=== PATIENT | female | born 1950 | race Caucasian/White ===

== ENCOUNTER → 2023-08-01 07:55 | Outpatient (REF) | payer MEDICARE, OTHER, SELFPAY | LOC: RAD 07:55 | PROVIDERS: ATTENDING PHYSICIAN Nurse Practitioner Adult Health; FAMILY PHYSICIAN Family Medicine | DX: R91.8 Other nonspecific abnormal finding of lung field (principal) | CPT/HCPCS: 71250 ==

== ENCOUNTER 2023-10-11 10:49 | Inpatient (IN) | payer MEDICARE, OTHER, SELFPAY ==
[2023-10-11] VITALS (9 sets, daily range): BP systolic 114–148; BP diastolic 59–101; BMI 30.8; BMI 29.9
[2023-10-11 06:00] LABS: % Basophils 0.8 % (0-2); % Immature Granulocytes 0.1 % (0-0.5); % Lymphocytes 21.9 % (20.5-51.1); % Monocytes 5.7 % (1.7-9.3); % Neutrophils 61.5 % (42.2-75.2); Absolute Basophils 0.1 10^3/uL (0-0.2); Absolute Eosinophils 0.8 10^3/uL (0-0.7); Absolute Lymphocytes 1.7 10^3/uL (1.2-3.4); Absolute Monocytes 0.4 10^3/uL (0.1-0.6); Absolute Neutrophils 4.8 10^3/uL (1.4-6.5); Hematocrit 39.9 % (37.0-47.0); Hemoglobin 13.6 g/dL (12.0-16.0); Mean Corp Hgb Conc. 34.1 g/dL (33.0-37.0); Mean Corpuscular Hgb 30.4 pg (27.0-31.0); Mean Corpuscular Volume 89.3 fL (81.0-99.0); Mean Platelet Volume 9.2 fL (7.4-10.4); Nucleated Red Blood Cells % 0 %; Platelet Count 257 10^3/uL (130-400); Red Blood Cell Count 4.47 10^6/uL (4.20-5.40); Red Cell Dist. Width 13.7 % (11.5-14.5); White Blood Cell Count 7.7 10^3/uL (4.8-10.8)
[2023-10-11 06:23] LABS: ALT (SGPT) 26 U/L (0-35); AST (SGOT) 38 U/L (14-36); Albumin 4.2 g/dl (3.5-5.0); Alkaline Phosphatase 81 U/L (38-126); Blood Urea Nitrogen 16 mg/dl (7-17); Calcium 10.4 mg/dl (8.4-10.2); Carbon Dioxide 24 mmol/L (22-30); Chloride 106 mmol/L (98-107); Estimated Creatinine Clearance 63 ml/min; Glucose 128 mg/dl (70-99); Potassium 4.2 mmol/L (3.5-5.1); Sodium 136 mmol/L (135-145); Total Bilirubin 0.5 mg/dl (0.2-1.3); eGFR > 60.00
--- NOTE | 2023-10-11 06:26 | ED.GENMED ---
History of Present Illness
General
Chief Complaint: Breathing Problem
Source: patient
Time Seen by Provider: 10/11/23 06:18
Travel History
Have you had any contact with someone who has COVID-19?: No
Do you have any symptoms of coronavirus? Fever > 100 degrees, chills, cough, shortness of breath, sore throat, loss of taste or smell, muscle aches, or headache?: Yes
Symptoms:: SOB
History of Present Illness
History of Present Illness:
72-year-old female presents to the emergency room complaining of increasing cough, shortness of breath. Patient has a history of COPD but has been feeling like her symptoms have worsened over the past week or so. She has noted an increase in her
cough which is mostly nonproductive. She feels short of breath with minimal exertion. She denies any fever or chills. No known sick contacts. Patient was prescribed a new inhaler by her director organizational,Tobi. She does not believe this new
inhaler has helped. She denies any chest pain. She denies nausea, vomiting
Past History
Past History
ED Past Medical History: COPD and Hypercholesterolemia
Social History
Tobacco: Former smoker
Alcohol: None
Drug: None
Personal:
Living: with family
Phy Exam
Physical Exam
Physical Exam:
General: Awake, Alert, Oriented X3. No acute distress.
Vitals: Hypoxic
Head: Atraumatic
Eyes: Pupils equal, EOMI
Throat: Airway intact, no exudates
Neck: Trachea midline
Lungs: Expiratory wheezing, rhonchi diffusely
Heart: Regular rate, no murmurs
Abd: Soft, Nontender, No pulsatile mass
Neuro: Nonfocal
Skin: Warm, dry, no rash
Extremities: pulses equal b/l, no edema
Scores
Heart Failure Risk
Heart Failure Risk Score: Not Applicable
Course
Orders/Labs/Results
Orders:
Orders
10/11/23 05:51
Electrocardiogram (*1) Urgent
Reason for Study: Shortness of Breath
EKG- Treatment ONCE
10/11/23 05:55
Complete Blood Count/With Diff Urgent
Comprehensive Metabolic Panel Urgent
Troponin I Urgent
10/11/23 06:23
Ipratropium/Albuterol Sulfate [Duoneb] 3 ml INH R NOW STA
Prednisone [Deltasone] 60 mg PO NOW STA
10/11/23 06:25
CR Chest - 2 Views Urgent
Comment:
Reason For Exam: cough, hypoxia
10/11/23 06:30
COVID-19 Antigen Urgent
Source: Nasal Swab
Influenza A+B Rapid Molecular Urgent
ARTEM Source: Nasal Swab
Specimen Description:
10/11/23 07:46
Albuterol Nebs [Ventolin Nebules] 2.5 mg INH R NOW STA
10/11/23 09:09
Procalcitonin Urgent
10/11/23 10:31
Admit/Transfer Patient As Directed
Co-Sign Provider:
Level of Care: Inpatient admission
Assign to:: Medical/Surgical
Physician / Group: Alonzo
Diagnosis: Pneumonia and COPD flare
Reason for Hospitalization: see progress note
Expected length of stay greater than two midnights?: Yes
ELOS- Estimated Length of Stay in days: 4
I certify the patient meets the requirements for IP care: Yes
10/11/23 10:33
Code Status As Directed
Resuscitation Status: Full Code
Abnormal Lab Results
10/11/23
05:55
Absolute Eos (auto) 0.8 H 10^3/uL
(0-0.7)
Eosinophils % 10.0 H %
(0-6)
Glucose 128 H mg/dl
(70-99)
Calcium 10.4 H mg/dl
(8.4-10.2)
AST 38 H U/L
(14-36)
10/11/23 05:55
10/11/23 05:55
Vital Signs
Initial and Last Documented VS:
Initial Vital Signs
Temp Pulse Resp Pulse Ox
97.8 F 100 32 86
10/11/23 05:40 10/11/23 05:40 10/11/23 05:40 10/11/23 05:40
Last Documented Vital Signs
Temp Pulse Resp BP Pulse Ox
97.8 F 89 23 135/101 92
10/11/23 05:40 10/11/23 10:00 10/11/23 10:00 10/11/23 10:00 10/11/23 10:07
MDM/Problems Addressed
Differential Diagnosis Includes:
ptx, copd exacerbation, pneumonia
MDM/Problems Addressed:
Patient presents with increased wheezing, hypoxia, dyspnea on exertion. No significant improvement with nebs and oral prednisone here. Chest x-ray shows atelectasis. Given lack of response to treatment here in the emergency room we will
hospitalize for further nebs, steroids and evaluation.
*Pulse Oximetry
Patient hypoxic: yes
*EKG
Interpreted by ED Provider?: Yes
Interpretation: normal
Heart Rate: 86
Rate: normal
Rhythm: sinus
[place]: normal axis
Interval: normal interval
QRS Pattern: normal QRS
Ischemia: no ischemia
*[employer] Rep Interpretation
Rate: normal
Interpretation: normal
Rhythm: sinus
*Critical Care Note
Total Time (30-74mins, 75-104mins- exclusive of procedures): Not Applicable
ED Attending Note
-
Portions of this chart may have been created with voice recognition software.� Occasional wrong word or��sound alike� substitutions may have occurred due to the inherent limitations of voice recognition software.
Discharge Plan
Departure
Patient Disposition: Admit
Date of Disposition: 10/11/23
Time of Disposition: 08:43
Admit to: Med/Surg
Presentation/result/management discussed w/ accepting MD/DO: Hospitalist
Condition: Fair
Discharge Problem:
Acute exacerbation of chronic obstructive pulmonary disease (COPD), Hypoxia
Interventions
Interventions:
*Risk Screen - Suicide Last Done: 10/11/23 05:48
*General Assessment Last Done: 10/11/23 05:48
*Neglect/Abuse Screening Last Done: 10/11/23 05:48
ED- Fall Risk Assessment Last Done: 10/11/23 05:48
*ED COVID-19 Vaccine History Last Done: 10/11/23 05:48
ED- Cardiac Assessment Last Done: 10/11/23 07:26
ED- Pulmonary Assessment Last Done: 10/11/23 07:26
[2023-10-11] MEDS: DELTASONE 60 MG PO (06:30)
[2023-10-11] MEDS: DUONEB 3 ML INH ×4 (06:31→20:36)
[2023-10-11 06:39] LABS: Troponin I < 0.012 ng/ml
[2023-10-11 07:00] LABS: COVID-19 Antigen Negative (Negative)
[2023-10-11] MEDS: VENTOLIN NEBULES 2.5 MG INH (08:17)
[2023-10-11 10:25] LABS: Procalcitonin < 0.05 ng/ml (0.0-0.25)
--- NOTE | 2023-10-11 10:43 | HPS.HSE ---
Family Physician
-
Family Physician: Lennie Brown DO
Chief Complaint
-
Shortness of breath and cough
History of Present Illness
Known history of COPD. Last time she was troubled from respiratory standpoint was in May when she had a pneumonia got admitted to [facility].
She is normally on inhaler therapy. No nebulizers or home O2.
Post discharge she was feeling great. She had a follow-up chest CT which showed improvement apparently. She saw game attendant understanding of September and had a pulmonary function test which were all stable apparently again.
She has a bit of cough in the morning normally but lately she has been having cough more frequently and mostly dry. In the last 3 to 4 days she started to become more short of breath. She called the pulmonary office and was put on a different
inhaler but not made any improvement so came into the hospital.
She was 86% on room air on initial assessments in ER. Currently stable on nasal cannula.
Denies any fever or chills.
Denies any seasonal allergies issues.
No contact with sick people. No travel. No new pets.
No chest pains.
No nausea or vomiting.
Medical History
Past Medical History
Past Medical History: Reports COPD and Hypercholesterolemia
Past Surgical History: Reports Orthopedic (Left shoulder replacement 6 months ago. Left knee replacement 9 years ago.)
Social History
Tobacco: Former Smoker
Alcohol: Occasional
Drug: None
Living: With Family
Family History
Family History: Not pertinent
Allergies / Home Medications
Allergies reflects when Allergies were last updated in [employer].
Home Medications with original date entered in [employer]
Allergy/Medication List:
Allergies
Allergy/AdvReac Type Severity Reaction Status Date / Time
Opioids - Morphine Analogues Allergy Nausea / Verified 10/11/23 05:40
Vomiting
Home Medications
albuterol sulfate 90 mcg/actuation aerosol inhaler 2 puff inhalation R Q4HPRN PRN sob/wheezing 06/02/23
alendronate 70 mg tablet 70 mg PO MO osteoporosis 06/02/23
cyclosporine 0.05 % eye drops in a dropperette (Restasis) 1 drp BOTH EYES BID Eye Condition 06/02/23
diphenhydramine 25 mg-acetaminophen 500 mg tablet (Tylenol PM Extra Strength) 2 tab PO HS PRN sleep 06/02/23
esomeprazole magnesium 20 mg capsule,delayed release (Nexium) 20 mg PO DAILY PRN heartburn 06/02/23
rosuvastatin 5 mg tablet 5 mg PO QPM High Cholesterol 06/02/23
acetaminophen 500 mg tablet (Tylenol Extra Strength) 1,000 mg PO Q6H PRN mild pain 10/11/23
cholecalciferol (vitamin D3) 125 mcg (5,000 unit) tablet 125 mcg PO DAILY Supplement 10/11/23
melatonin 10 mg tablet 10 mg PO HS PRN sleep 10/11/23
tiotropium 2.5 mcg-olodaterol 2.5 mcg/actuation mist for inhalation (Stiolto Respimat) 2 puff inhalation .SEE BELOW Lung/Breathing Issues 10/11/23
Review of Systems
-
A 12 point ROS was completed and negative except as noted: Yes
Physical Exam
Vital Signs
Vital Signs
Temp Pulse Resp BP Pulse Ox
97.8 F 89 23 135/101 92
10/11/23 05:40 10/11/23 10:00 10/11/23 10:00 10/11/23 10:00 10/11/23 10:07
Physical Exam
General: No Apparent Distress
HEENT: Moist mucous membranes
Respiratory: Wheezes (bl) and Non Labored Respirations; No Accessory Resp Muscle Use
Cardiac: S1/S2 and Regular Rhythm; No Tachycardia
GI: Soft
Musculoskeletal: No Edema
Neuro: AO x 3
Laboratory Results
-
10/11/23 05:55
10/11/23 05:55
Laboratory Results
Total Bilirubin 0.5 mg/dl (0.2-1.3) 10/11/23 05:55
AST 38 U/L (14-36) H 10/11/23 05:55
ALT 26 U/L (0-35) 10/11/23 05:55
Alkaline Phosphatase 81 U/L (38-126) 10/11/23 05:55
Troponin I < 0.012 ng/ml 10/11/23 05:55
Data Reviewed
-
Diagnostic Radiology: Report Reviewed by me (CXR)
Lab Data: Labs Reviewed by me
Impression/Plan
-
Acute exacerbation of COPD-patient presents with new dry cough, progressive shortness of breath, and actively bronchospastic. known to have COPD. Suspect probably triggered by right lung process? Pneumonia. Admit to hospital for COPD treatment
and evaluation.
Started on prednisone, nebulizers.
Consult pulmonary
Acute hypoxic respiratory insufficiency-patient's oxygenation was 86% on room air on admission. No acute respiratory distress noted currently. Start on oxygen and wean as able
Right middle lobe opacification-possible pneumonia. She is not septic nor toxic currently. She has no respiratory symptoms. She had a prior right posterior lower lobe pneumonia which is followed with a repeat CT in July 2023 and it had
cleared. She now has a recurrent opacity. Will treat as community-acquired pneumonia with ceftriaxone and doxycycline and follow culture data. COVID-19 negative. Check a flu and sputum culture. Blood cultures if she spikes fever.
Hyperlipidemia-continue home medication
Full code
--- NOTE | 2023-10-11 12:24 | PTCARENOTE ---
Rec'd Pt from ED to Room [address]. Pt oriented to room with call sawant in place
[2023-10-11] MEDS: VIBRAMYCIN 100 MG PO ×2 (13:08→20:20)
[2023-10-11] MEDS: STERILE WATER FOR INJECTION 10 ML IV (13:08)
[2023-10-11] MEDS: TYLENOL 1000 MG PO (13:08)
[2023-10-11] MEDS: ROCEPHIN 1000 MG IV (13:09)
[2023-10-11] MEDS: DECADRON 4 MG IV ×2 (13:10→20:20)
--- NOTE | 2023-10-11 17:04 | CON.PUL ---
Consultation
Consultation Request
Date/Time Consultation Requested: 10/10
Date/Time Consultation Performed: 10/10
Reason for Consultation: COPD exacerbation
Medical History
-
History of Present Illness:
Patient is a pleasant 72-year-old female with history of COPD, recent right lower lobe pneumonia, history of hypoxia who was last seen in the office 09/14, at which time she was doing well. Of note she had breathing test at that time show that showed
significant improvement in FEV1 91%. She had yet to start her Trelegy inhaler which was supposed to be done. She was given a list of medications start, and had been feeling well therefore did not start any maintenance inhaler therapy. She
apparently saw her primary physician earlier this week and was doing well. However 3 days ago she developed increased chest congestion, cough and shortness of breath. For this reason she brought her self into [facility] where upon arrival
afebrile, pulse 100, breathing at 32, 86%. She was noted to have significant wheezing in the ED, given nebulized therapy, IV steroids. She was admitted for COPD exacerbation and hypoxia. Of note, chest x-ray showed possible right middle lobe
infiltrate although this cannot be confirmed. She denies any sick contacts, recent travel. She does not have pets at home
.
PMH: Pulmonary nodules, emphysema, history of COVID April 2023, suspected COPD with possible overlap with asthma, recent right lower lobe pneumonia per CT chest. History of latent tuberculosis. History of , left shoulder replacement
2022, left knee replacement 2011
Past Medical History
Past Medical History: None (See above)
Past Surgical History: None (See above)
Social History
Tobacco: Former Smoker ([id number], quit 1999)
Alcohol: None
Drug: None
Personal: Single
Living: Alone
Employment: Retired
Family History
Family History: Other (History negative for lung disease, blood clots)
Allergies / Home Medications
Allergies
Allergy/AdvReac Type Severity Reaction Status Date / Time
Opioids - Morphine Analogues Allergy Nausea / Verified 10/11/23 05:40
Vomiting
Home Medications
�Medication �Instructions �Recorded �Confirmed �Last Taken �Type
albuterol sulfate 90 mcg/actuation 2 puff inhalation R Q4HPRN PRN 06/02/23 10/11/23 10/10/23 History
aerosol inhaler sob/wheezing
alendronate 70 mg tablet 70 mg PO MO osteoporosis 06/02/23 10/11/23 10/09/23 History
cyclosporine 0.05 % eye drops in a 1 drp BOTH EYES BID Eye Condition 06/02/23 10/11/23 10/11/23 History
dropperette (Restasis)
diphenhydramine 25 2 tab PO HS PRN sleep 06/02/23 10/11/23 3 Days Ago History
mg-acetaminophen 500 mg tablet ~10/08/23
(Tylenol PM Extra Strength)
esomeprazole magnesium 20 mg 20 mg PO DAILY PRN heartburn 06/02/23 10/11/23 Unknown History
capsule,delayed release (Nexium)
rosuvastatin 5 mg tablet 5 mg PO QPM High Cholesterol 06/02/23 10/11/23 10/10/23 History
acetaminophen 500 mg tablet 1,000 mg PO Q6H PRN mild pain 10/11/23 10/11/23 10/11/23 History
(Tylenol Extra Strength)
cholecalciferol (vitamin D3) 125 125 mcg PO DAILY Supplement 10/11/23 10/11/23 10/10/23 History
mcg (5,000 unit) tablet
melatonin 10 mg tablet 10 mg PO HS PRN sleep 10/11/23 10/11/23 10/10/23 History
tiotropium 2.5 mcg-olodaterol 2.5 2 puff inhalation .SEE BELOW 10/11/23 10/11/23 10/09/23 History
mcg/actuation mist for inhalation Lung/Breathing Issues
(Stiolto Respimat)
Review of Systems
-
All other systems: Negative unless noted
Vitals / Labs / Diagnostic Testing
Vital Signs
Temp Pulse Resp BP Pulse Ox
97.7 F 85 16 116/59 91
10/11/23 15:00 10/11/23 16:01 10/11/23 16:01 10/11/23 15:00 10/11/23 16:01
Lab Data
10/11/23 05:55
10/11/23 05:55
Microbiology
10/11/23 06:30 Nasal Swab Influenza Types A & B (ROSY) - Final
Negative for Influenza A & B, NAAT
Negative results must be combined with clinical observations
and patient history.
Nucleic Acid Amplification test (NAAT)performed on the
[employer] platform.
Diagnostic Testing:
Physical Exam
-
HEENT: Normocephalic and Anicteric
Cardiovascular: S1/S2, Regular Rhythm, Murmur (n), Rub (n), Peripheral Edema and Calf Tenderness (n)
Respiratory: Wheeze (Diffuse), Rales (n), Rhonchi (n), Non-Labored Respirations and Other (Decreased breath sounds, poor air movement)
GI: Soft, Non Distended and Non Tender
Neurology: Awake, Alert and No Motor Deficits
Skin: Good Color and Other (No clubbing, no cyanosis)
General: Comfortable
Assessment
-
72-year-old female with history of recent COVID infection 05/18/2023, right lower lobe pneumonia identified at [facility] with improvement radiographically, left shoulder surgery April 2023, heartburn, questionable COPD, significant
smoking history who presents with 3 days of increased shortness of breath. Unfortunate patient did not start her maintenance regimen as discussed in the past for obstructive lung disease. Chest x-ray suggest possible right lower lobe process.
Admitted for COPD exacerbation 10/11/2023
Acute hypoxic respiratory insufficiency
86% on room air
Acute COPD exacerbation
Questionable right lower lobe pneumonia/right middle lobe infiltrate
Recent right lower lobe pneumonia, improved radiographically July 2023
Conditions present prior to admission
Mild interstitial lung disease per CT chest
Few scattered nodules
Recent left apical nodule 5 mm per left shoulder imaging, February 2023 ([facility])
Mild emphysema per CT imaging
Hx of Covid April 2023
[id number] history of smoking, quit 20 years ago
History of latent tuberculosis
Subjective dyspnea, chronic
Plan/recommendations
At this time, patient with significant worsening in exam when compared to 1 month ago
No clear triggers although patient does describe symptoms consistent with allergies
No sick contacts
She had been doing well and had acute worsening the last few days without any obvious trigger
She does have some mild interstitial changes and patchy areas of bronchiectasis per my review
Right middle lobe infiltrate noted, cannot rule out chronicity
She had a left shoulder film in February [address] [facility] which commented on a 5 mm left upper lobe nodule
She is not on any inhaler therapy at home, just started Stiolto 2 days prior to admission. She was supposed to be on Trelegy before
She had a cardiac workup in 2018 which was normal
Moving forward
Continue with empiric antibiotics for community-acquired pneumonia. Ceftriaxone/doxycycline
Difficult to differentiate between chronic changes and acute pneumonia
Follow clinically
Check VSE given rapid onset of symptoms
Continue to wean oxygen
DVT prophylaxis: enoxaparin
GI prophylaxis: pantoprazole
Reviewed with patient and respiratory care
[2023-10-11] MEDS: LOVENOX 40 MG SC (17:07)
[2023-10-11] MEDS: CRESTOR 5 MG PO (17:07)
[2023-10-11] MEDS: MUCINEX 600 MG PO (20:20)
[2023-10-11] MEDS: RESTASIS 0.05% OPHTHALMIC EMULSION 1 DROPS BOTH EYES (20:20)
[2023-10-12] MEDS: DECADRON 4 MG IV ×4 (01:31→22:04)
[2023-10-12 06:00] VITALS: BMI 30.1
[2023-10-12] MEDS: DUONEB 3 ML INH ×4 (07:26→20:08)
[2023-10-12 07:30] VITALS: BP 144/79
[2023-10-12] MEDS: RESTASIS 0.05% OPHTHALMIC EMULSION 1 DROPS BOTH EYES ×2 (08:02→19:35)
[2023-10-12] MEDS: VITAMIN D3 (cholecalciferol) 125 MCG PO (08:02)
[2023-10-12] MEDS: MUCINEX 600 MG PO ×2 (08:02→19:35)
[2023-10-12] MEDS: VIBRAMYCIN 100 MG PO ×2 (08:02→19:35)
--- NOTE | 2023-10-12 09:00 | PTOTSP ---
Speech Language Pathology
VIDEOFLUOROSCOPIC SWALLOWING EXAMINATION (VSE) completed. Overall, pt with functional oropharyngeal swallow. No penetration/aspiration noted. Occasional pharyngeal residue noted, increased with solids. Partial distention of PES noted.
Recommend:
(1) Continue regular solids/thin liquids
(2) Precautions: frequent sips of liquids during meals
(3) Meds as tolerated
(4) Consider OP GI consult given partial distention of PES with pt complaints of globus sensation
(5) SHEEP CLIPPER to sign off. PLease reconsult as indicated
--- NOTE | 2023-10-12 10:29 | W.PN.HOSP.TC ---
Today's Communication/Plan
-
Continue steroids next continue with antibiotics
Wean oxygen as able
Assessment / Plan
Assessment / Plan
Acute exacerbation of COPD-patient presents with new dry cough, progressive shortness of breath, and actively bronchospastic. known to have COPD. Suspect probably triggered by right lung process? Pneumonia.
Continue with steroids, nebulizers.
Appreciate pulmonary input.
Acute hypoxic respiratory insufficiency-patient's oxygenation was 86% on room air on admission. No acute respiratory distress noted currently. Continue with oxygen and wean as able.
.
Right middle lobe opacification-possible pneumonia. She is not septic nor toxic currently. She had a prior right posterior lower lobe pneumonia which is followed with a repeat CT in July 2023 and it had cleared. She now has a recurrent
opacity. Will treat as community-acquired pneumonia with ceftriaxone and doxycycline and follow culture data. COVID-19 negative. Flu negative. Her procalcitonin is normal. Low threshold to discontinue antibiotics. Patient had a VSE which shows
no aspiration cleared for regular solids.
Hyperlipidemia-continue home medication
Full code
Anticipated Discharge: 24 - 48 hours
Subjective/Interval History
-
Date of Service: October 12, 2023
Feels still bit short of breath.
Not Much of cough. No chest pain.
No nausea vomiting.
No fever or chills today.
Objective Data
-
Vital Signs:
Vital Signs
Temp Pulse Resp BP Pulse Ox
97.4 F 102 18 144/79 91
10/12/23 07:30 10/12/23 07:31 10/12/23 07:31 10/12/23 07:30 10/12/23 07:31
I&O
10/11/23 10/12/23 10/13/23
06:59 06:59 06:59
Intake Total 1200 / 1200
Balance 1200 / 1200
Review of Systems
-
Constitutional: Denies Fever
EENT: Denies Sore Throat
Cardiac: Denies Chest Pain
Neuro: Denies Dizzy
Physical Exam
-
General: No Apparent Distress and Comfortable
Respiratory: Non Labored Respirations and Decreased Breath Sounds (Decreased breath sounds in general); Negative Wheezes or Accessory Resp Muscle Use
Cardiac: Regular Rhythm and S1/S2
GI: Soft
Neuro: AO x 3
--- NOTE | 2023-10-12 11:36 | CM ---
armored transport service manager reviewed patient's chart and met with patient and patient lives alone in a 2 story home, patient is independent with adl's and ambulation, no dme, patient has a prescription plan and patient uses [facility] pharmacy. Patient did not require
oxygen prior to admission.
Plan; Home when stable, will need to follow for any needs, plan to wean off oxygen.
[2023-10-12] MEDS: TESSALON PERLES 100 MG PO (14:27)
[2023-10-12] MEDS: TYLENOL 1000 MG PO (14:28)
[2023-10-12] MEDS: STERILE WATER FOR INJECTION 10 ML IV (14:29)
[2023-10-12] MEDS: ROCEPHIN 1000 MG IV (14:30)
[2023-10-12 15:00] VITALS: BP 116/69
--- NOTE | 2023-10-12 15:46 | W.PN.PUL3 ---
Today's Communication / Plan
-
Decrease Decadron dosing
Continue antibiotics
Ambulate, screen for oxygen therapy
Assessment
-
72-year-old female with history of recent COVID infection 05/18/2023, right lower lobe pneumonia identified at [facility] with improvement radiographically, left shoulder surgery April 2023, heartburn, questionable COPD, significant
smoking history who presents with 3 days of increased shortness of breath. Unfortunate patient did not start her maintenance regimen as discussed in the past for obstructive lung disease. Chest x-ray suggest possible right lower lobe process.
Admitted for COPD exacerbation 10/11/2023
Acute hypoxic respiratory insufficiency
86% on room air
Acute COPD exacerbation
Questionable right lower lobe pneumonia/right middle lobe infiltrate
Recent right lower lobe pneumonia, improved radiographically July 2023
Conditions present prior to admission
Mild interstitial lung disease per CT chest
Few scattered nodules
Recent left apical nodule 5 mm per left shoulder imaging, February 2023 ([facility])
Mild emphysema per CT imaging
Hx of Covid April 2023
[id number] history of smoking, quit 20 years ago
History of latent tuberculosis
Subjective dyspnea, chronic
Plan/recommendations
At this time, patient appears to be improved both objectively and subjectively
Still with decreased breath sounds, poor air movement, scattered wheezes
No clear triggers although patient does describe symptoms consistent with allergies
No sick contacts
She had been doing well and had acute worsening the last few days without any obvious trigger
She does have some mild interstitial changes and patchy areas of bronchiectasis per my review
Right middle lobe infiltrate noted, cannot rule out chronicity
She had a left shoulder film in February 2023 at [facility] which commented on a 5 mm left upper lobe nodule
She is not on any inhaler therapy at home, just started Stiolto 2 days prior to admission. She was supposed to be on Trelegy before
She had a cardiac workup in 2018 which was normal
Moving forward
Continue with empiric antibiotics for community-acquired pneumonia. Ceftriaxone/doxycycline
Difficult to differentiate between chronic changes and acute pneumonia
Follow clinically
VSE normal
Continue to wean oxygen
Continue with empiric Decadron therapy, can decrease to every 8 hours
DuoNebs 4 times a day
Patient was supposed to start outpatient maintenance inhaler, did not do so of note, recent PFT with normal FEV1, DLCO 61%
Had improved from FEV1 of 67% in the past
Check ambulatory saturation on room air
DVT prophylaxis: enoxaparin
GI prophylaxis: pantoprazole
Reviewed with patient
Subjective Data
-
Date of Service:
Date of Service: October 12, 2023
Subjective:
Patient subjectively improved. Walking this morning with less issues but as the day goes on becomes increasingly short of breath, chest congestion. Denies chest tightness, hemoptysis, nausea, abdominal pain
Objective Data
Data Reviewed
Vital Signs / I&O / Oxygen:
Vital Signs
Temp Pulse Resp BP Pulse Ox
97.4 F 103 18 144/79 93
10/12/23 07:30 10/12/23 15:27 10/12/23 15:27 10/12/23 07:30 10/12/23 15:27
Intake and Output
10/11/23 10/12/23 10/13/23
06:59 06:59 06:59
Intake Total 1200 / 1200
Balance 1200 / 1200
SaO2 93
Nasal Cannula flow liters per 6
minute
Physical Exam
General: Comfortable
HEENT: Normocephalic, Anicteric and Other (Large neck)
Cardiovascular: S1-S2, Regular Rhythm, Murmur (n), Rub (n) and Peripheral Edema (n)
Respiratory: Wheeze (Mild), Crackles (n), Rhonchi (n), Non-Labored Respirations and Other (Decreased, poor air movement)
GI: Soft, Non Distended and Non Tender
Neurology: Awake, Alert and No Motor Deficits (Able to sit up without assistance)
Skin: Cyanosis (n), Jaundice (n) and Rash (n)
Labs/Micro/Reports
Lab Data
10/11/23 05:55
10/11/23 05:55
Microbiology
10/11/23 06:30 Nasal Swab Influenza Types A & B (ROSY) - Final
Negative for Influenza A & B, NAAT
Negative results must be combined with clinical observations
and patient history.
Nucleic Acid Amplification test (NAAT)performed on the
[employer] platform.
[2023-10-12] MEDS: LOVENOX 40 MG SC (17:23)
[2023-10-12] MEDS: CRESTOR 5 MG PO (17:23)
--- NOTE | 2023-10-12 18:24 | PTCARENOTE ---
Verbal request to Dr. Alonzo for cough meds. Order rec'd for Tessalon Perles 100 mg TID PRN rec'd and given to Pt with some relief noted.
[2023-10-12] MEDS: PROTONIX 40 MG PO (20:29)
[2023-10-12 23:05] VITALS: BP 140/86
[2023-10-13] MEDS: DECADRON 4 MG IV ×3 (05:42→21:52)
[2023-10-13] MEDS: DUONEB 3 ML INH ×4 (07:21→19:30)
[2023-10-13 07:30] VITALS: BP 157/88
[2023-10-13] MEDS: MUCINEX 600 MG PO ×2 (07:56→21:52)
[2023-10-13] MEDS: VIBRAMYCIN 100 MG PO ×2 (07:56→21:52)
[2023-10-13] MEDS: VITAMIN D3 (cholecalciferol) 125 MCG PO (07:56)
[2023-10-13] MEDS: RESTASIS 0.05% OPHTHALMIC EMULSION 1 DROPS BOTH EYES ×2 (07:59→22:09)
--- NOTE | 2023-10-13 10:45 | CM ---
Patient seen bedside, reports no needs to CM at this time. Patient remains on oxygen, watch for home O2 needs. CM will continue to follow for discharge planning needs.
Plan; home no needs, watch for home O2 needs.
--- NOTE | 2023-10-13 11:11 | W.PN.PUL3 ---
Today's Communication / Plan
-
Continue steroids, no change
Check ambulatory saturation
Resume Stiolto upon dc
Not ready for discharge, hope in the next 24 to 48 hours
Assessment
-
72-year-old female with history of recent COVID infection 05/18/2023, right lower lobe pneumonia identified at [facility] with improvement radiographically, left shoulder surgery April 2023, heartburn, questionable COPD, significant
smoking history who presents with 3 days of increased shortness of breath. Unfortunate patient did not start her maintenance regimen as discussed in the past for obstructive lung disease. Chest x-ray suggest possible right lower lobe process.
Admitted for COPD exacerbation 10/11/2023
Acute hypoxic respiratory insufficiency
86% on room air
Acute COPD exacerbation
Questionable right lower lobe pneumonia/right middle lobe infiltrate
Recent right lower lobe pneumonia, improved radiographically July 2023
Conditions present prior to admission
Mild interstitial lung disease per CT chest
Few scattered nodules
Recent left apical nodule 5 mm per left shoulder imaging, February 2023 ([facility])
Mild emphysema per CT imaging
Hx of Covid April 2023
[id number] history of smoking, quit 20 years ago
History of latent tuberculosis
Subjective dyspnea, chronic
Plan/recommendations
At this time, patient appears to be improved both objectively and subjectively
Still with decreased breath sounds, poor air movement, wheezing has improved
No clear triggers although patient does describe symptoms consistent with allergies
Symptoms seem to have come on rapidly
Swallowing evaluation normal
No sick contacts
She had been doing well and had acute worsening the last few days without any obvious trigger
She does have some mild interstitial changes and patchy areas of bronchiectasis per my review
Right middle lobe infiltrate noted, cannot rule out chronicity
She had a left shoulder film in February 2023 at [facility] which commented on a 5 mm left upper lobe nodule
She is not on any inhaler therapy at home, just started Stiolto 2 days prior to admission. She was supposed to be on Trelegy before
She had a cardiac workup in 2018 which was normal
Moving forward
Continue with empiric antibiotics for community-acquired pneumonia. Ceftriaxone/doxycycline
Difficult to differentiate between chronic changes and acute pneumonia
Follow clinically
VSE normal
Continue to wean oxygen
PT evaluation, ambulate and assess home oxygen needs
Continue with empiric Decadron therapy, every 8 hours
Consider transition to oral steroid in the next 24 to 48 hours. Hope for discharge in the next 24 to 48 hours
DuoNebs 4 times a day
Patient was supposed to start outpatient maintenance inhaler, did not do so, recent PFT with normal FEV1, DLCO 61%
Had improved from FEV1 of 67% in the past
Resume Stiolto as o/p upon dc
DVT prophylaxis: enoxaparin
GI prophylaxis: pantoprazole
Reviewed with patient
Not yet ready for discharge
Subjective Data
-
Date of Service:
Date of Service: October 13, 2023
Subjective:
Patient continues to improve subjectively. She did get short of breath after her shower this morning, felt like she needed her oxygen. Less cough, denies chest pain, denies hemoptysis, nausea, lightheadedness
Objective Data
Data Reviewed
Vital Signs / I&O / Oxygen:
Vital Signs
Temp Pulse Resp BP Pulse Ox
97.9 F 119 24 157/88 94
10/13/23 07:30 10/13/23 07:30 10/13/23 07:30 10/13/23 07:30 10/13/23 08:00
Intake and Output
10/12/23 10/13/23 10/14/23
06:59 06:59 06:59
Intake Total 1200 / 1200 1320 / 1320
Balance 1200 / 1200 1320 / 1320
SaO2 94
Nasal Cannula flow liters per 4
minute
Physical Exam
General: Comfortable
HEENT: Normocephalic, Anicteric and Other (Large neck)
Cardiovascular: S1-S2, Regular Rhythm, Murmur (n), Rub (n) and Peripheral Edema (n)
Respiratory: Wheeze (Mild), Crackles (n), Rhonchi (n), Non-Labored Respirations and Other (Decreased, poor air movement)
GI: Soft, Non Distended and Non Tender
Neurology: Awake, Alert and No Motor Deficits (Able to sit up without assistance)
Skin: Cyanosis (n), Jaundice (n) and Rash (n)
Labs/Micro/Reports
Lab Data
10/11/23 05:55
10/11/23 05:55
Microbiology
10/11/23 06:30 Nasal Swab Influenza Types A & B (ROSY) - Final
Negative for Influenza A & B, NAAT
Negative results must be combined with clinical observations
and patient history.
Nucleic Acid Amplification test (NAAT)performed on the
[employer] NOW platform.
--- NOTE | 2023-10-13 14:15 | W.PN.HOSP.TC ---
Today's Communication/Plan
-
CW ABX
CW Steroids
Assessment / Plan
Assessment / Plan
Acute exacerbation of COPD-patient presents with new dry cough, progressive shortness of breath, and actively bronchospastic. known to have COPD. Suspect probably triggered by right lung process? Pneumonia.
Continue with steroids, nebulizers.
Appreciate pulmonary input.
Slow improvement - keep on current dose of steroids
Acute hypoxic respiratory insufficiency-patient's oxygenation was 86% on room air on admission. No acute respiratory distress noted currently. Continue with oxygen and wean as able.
.
Right middle lobe opacification-possible pneumonia. She is not septic nor toxic currently. She had a prior right posterior lower lobe pneumonia which is followed with a repeat CT in July 2023 and it had cleared. She now has a recurrent
opacity. Will treat as community-acquired pneumonia with ceftriaxone and doxycycline. CW ABX. COVID-19 negative. Flu negative. Her procalcitonin is normal. Patient had a VSE which shows no aspiration cleared for regular solids.
Hyperlipidemia-continue home medication
Full code
Anticipated Discharge: 24 - 48 hours
Subjective/Interval History
-
Date of Service: October 13, 2023
slow improvement.
Less short of breath with exertion today. She was able to complete showering without much shortness of breath unlike prior to coming to the hospital.
Objective Data
-
Vital Signs:
Vital Signs
Temp Pulse Resp BP Pulse Ox
97.9 F 90 18 157/88 91
10/13/23 07:30 10/13/23 11:31 10/13/23 11:31 10/13/23 07:30 10/13/23 11:31
I&O
10/12/23 10/13/23 10/14/23
06:59 06:59 06:59
Intake Total 1200 / 1200 1320 / 1320
Balance 1200 / 1200 1320 / 1320
Review of Systems
-
EENT: Denies Sore Throat
Respiratory: Reports Cough (not much productive)
Cardiac: Denies Chest Pain
Abdomen/GI: Denies Abdominal Pain, Nausea or Vomiting
Neuro: Denies Dizzy
Physical Exam
-
General: No Apparent Distress
HEENT: Moist Mucous Membranes
Respiratory: Wheezes (few in left lung today) and Non Labored Respirations; Negative Accessory Resp Muscle Use
Cardiac: Regular Rhythm and S1/S2
GI: Soft
Neuro: AO x 3
Data Reviewed
-
Labs: Labs Reviewed by me
[2023-10-13] MEDS: ROCEPHIN 1000 MG IV (14:57)
[2023-10-13] MEDS: STERILE WATER FOR INJECTION 10 ML IV (14:57)
[2023-10-13 15:00] VITALS: BP 141/95
[2023-10-13] MEDS: LOVENOX 40 MG SC (17:09)
[2023-10-13] MEDS: CRESTOR 5 MG PO (17:09)
[2023-10-13] MEDS: FLUSH (NSS) 2 FLUSH IV (21:53)
[2023-10-13] MEDS: TYLENOL 1000 MG PO (21:58)
[2023-10-13] MEDS: MELATONIN 10 MG PO (21:58)
[2023-10-13 22:38] VITALS: BP 143/91
[2023-10-14] MEDS: DECADRON 4 MG IV (05:51)
[2023-10-14] MEDS: FLUSH (NSS) 1 FLUSH IV (05:52)
[2023-10-14] MEDS: TYLENOL 1000 MG PO ×2 (05:55→18:08)
[2023-10-14 07:00] VITALS: BP 148/84
[2023-10-14] MEDS: DUONEB 3 ML INH ×5 (08:01→22:46)
[2023-10-14] MEDS: RESTASIS 0.05% OPHTHALMIC EMULSION 1 DROPS BOTH EYES ×2 (08:11→20:03)
[2023-10-14] MEDS: VITAMIN D3 (cholecalciferol) 125 MCG PO (08:11)
[2023-10-14] MEDS: MUCINEX 600 MG PO ×2 (08:11→20:03)
[2023-10-14] MEDS: VIBRAMYCIN 100 MG PO ×2 (08:11→20:04)
--- NOTE | 2023-10-14 12:45 | W.PN.HOSP.TC ---
Today's Communication/Plan
-
Wean steroids per pulmonary
Continue to wean oxygen
Continue with antibiotics
Assessment / Plan
Assessment / Plan
Acute exacerbation of COPD-patient presents with new dry cough, progressive shortness of breath, and actively bronchospastic. known to have COPD. Suspect probably triggered by right lung process? Pneumonia.
Continue with steroids, nebulizers.
Appreciate pulmonary input.
Slow improvement - Wean steroids per pulm.
Acute hypoxic respiratory insufficiency-patient's oxygenation was 86% on room air on admission. No acute respiratory distress noted currently. Continue with oxygen and wean as able. Slighlty improved -currently on 3l.
.
Right middle lobe opacification-possible pneumonia. She is not septic nor toxic currently. She had a prior right posterior lower lobe pneumonia which is followed with a repeat CT in July 2023 and it had cleared. She now has a recurrent
opacity. Will treat as community-acquired pneumonia with ceftriaxone and doxycycline. CW ABX. COVID-19 negative. Flu negative. Her procalcitonin is normal. Patient had a VSE which shows no aspiration cleared for regular solids.
Hyperlipidemia-continue home medication
Full code
Anticipated Discharge: > 48 hours
Subjective/Interval History
-
Date of Service: October 14, 2023
Feeling slowly improved. Still having exertional shortness of breath.
Objective Data
-
Vital Signs:
Vital Signs
Temp Pulse Resp BP Pulse Ox
97.7 F 96 20 148/84 93
10/14/23 07:00 10/14/23 11:37 10/14/23 11:37 10/14/23 07:00 10/14/23 11:37
I&O
10/13/23 10/14/23 10/15/23
06:59 06:59 06:59
Intake Total 1320 / 1320 1560 / 1560
Balance 1320 / 1320 1560 / 1560
Review of Systems
-
Constitutional: Denies Fever
EENT: Denies Sore Throat
Cardiac: Denies Chest Pain or Palpitations
Neuro: Denies Dizzy
Physical Exam
-
General: No Apparent Distress
HEENT: Moist Mucous Membranes
Respiratory: Rhonchi (few) and Non Labored Respirations; Negative Accessory Resp Muscle Use
Cardiac: Regular Rhythm and S1/S2
GI: Soft
Neuro: AO x 3
Psych: Calm
--- NOTE | 2023-10-14 14:13 | W.PN.PUL3 ---
Today's Communication / Plan
-
Transition to prednisone
Continue DuoNebs
Transition to inhalers upon discharge
Home oxygen assessment tomorrow
Continue Acapella device
Antitussives
Mucolytic's
Hopefully discharge in 24 hours if better.
Assessment
-
72-year-old female with history of recent COVID infection 05/18/2023, right lower lobe pneumonia identified at [facility] with improvement radiographically, left shoulder surgery April 2023, heartburn, questionable COPD, significant
smoking history who presents with 3 days of increased shortness of breath. Unfortunate patient did not start her maintenance regimen as discussed in the past for obstructive lung disease. Chest x-ray suggest possible right lower lobe process.
Admitted for COPD exacerbation 10/11/2023
Acute hypoxic respiratory insufficiency
86% on room air
Acute COPD exacerbation
Questionable right lower lobe pneumonia/right middle lobe infiltrate
Recent right lower lobe pneumonia, improved radiographically July 2023
Conditions present prior to admission
Mild interstitial lung disease per CT chest
Few scattered nodules
Recent left apical nodule 5 mm per left shoulder imaging, February 2023 ([facility])
Mild emphysema per CT imaging
Hx of Covid April 2023
[id number] history of smoking, quit 20 years ago
History of latent tuberculosis
Subjective dyspnea, chronic
Plan/recommendations
Slowly improving
Main complaint is paroxysms of coughing.
On exam bronchospasm has improved. No wheezing heard on exam. Moving better air 10/14/2023
No clear triggers although patient does describe symptoms consistent with allergies
Swallowing evaluation normal
No sick contacts-she does see her small grandchildren frequently.
She had been doing well and had acute worsening the last few days without any obvious trigger
She does have some mild interstitial changes and patchy areas of bronchiectasis per my review
Right middle lobe infiltrate noted, cannot rule out chronicity
-
Continue with empiric antibiotics for community-acquired pneumonia. Ceftriaxone/doxycycline
Afebrile, no leukocytosis. Consider transition to oral antibiotics on 10/15/2023 and complete total 7 days.
Difficult to differentiate between chronic changes and acute pneumonia
She had a left shoulder film in February 2023 at [facility] which commented on a 5 mm left upper lobe nodule
She had a cardiac workup in 2018 which was normal
VSE normal
Will need outpatient radiographic follow-up.
Continue to wean oxygen-currently on 3 L.(Usually does not wear oxygen at home)
Home oxygen assessment tomorrow 10/15/2023.
Discontinue Decadron
Start prednisone 40 mg and decrease by 10 mg every 72 hours to off.
DuoNebs 4 times a day-while in the hospital.
Patient was supposed to start outpatient maintenance inhaler, did not do so, recent PFT with normal FEV1, DLCO 61%
Had improved from FEV1 of 67% in the past
Resume Stiolto as o/p upon dc
Continue symptomatic management for coughing Acapella device
Incentive spirometry
DVT prophylaxis: enoxaparin
GI prophylaxis: pantoprazole
Improved, hopefully discharge in the next 24 hours if better.
Home oxygen assessment in the morning
Follow-up with Dr. Sanchez after DC
Subjective Data
-
Date of Service:
Date of Service: October 14, 2023
Chief Complaint: Pulmonary Follow Up (Acute exacerbation COPD/pneumonia)
Subjective:
Continues to complain of intermittent coughing.
Shortness of breath slightly improved but still present with exertion only.
Difficulty expectorating.
Denies hemoptysis.
Review of Systems
General: Fever (n)
Cardiopulmonary: Dyspnea, Cough, Sputum Production (n), Wheezing (n) and Chest Pain (n)
GI: Abdominal Pain (n)
Objective Data
Data Reviewed
Vital Signs / I&O / Oxygen:
Vital Signs
Temp Pulse Resp BP Pulse Ox
97.7 F 96 20 148/84 92
10/14/23 07:00 10/14/23 11:37 10/14/23 11:37 10/14/23 07:00 10/14/23 13:13
Intake and Output
10/13/23 10/14/23 10/15/23
06:59 06:59 06:59
Intake Total 1320 / 1320 1560 / 1560
Balance 1320 / 1320 1560 / 1560
SaO2 92
Nasal Cannula flow liters per 4
minute
Physical Exam
General: Comfortable
HEENT: Normocephalic, Anicteric and Other (Large neck)
Cardiovascular: S1-S2, Regular Rhythm, Murmur (n), Rub (n) and Peripheral Edema (n)
Respiratory: Wheeze (None), Crackles (n), Rhonchi (n), Non-Labored Respirations and Other (Air movement improved)
GI: Soft, Non Distended and Non Tender
Neurology: Awake, Alert and No Motor Deficits (Able to sit up without assistance)
Skin: Cyanosis (n), Jaundice (n) and Rash (n)
Labs/Micro/Reports
Lab Data
10/11/23 05:55
10/11/23 05:55
[2023-10-14] MEDS: DECADRON IV (14:25)
[2023-10-14] MEDS: ROCEPHIN 1000 MG IV (14:27)
[2023-10-14] MEDS: STERILE WATER FOR INJECTION 10 ML IV (14:27)
[2023-10-14 15:00] VITALS: BP 124/75
[2023-10-14] MEDS: CRESTOR 5 MG PO (17:16)
[2023-10-14] MEDS: LOVENOX 40 MG SC (17:16)
[2023-10-14] MEDS: ROBITUSSIN DM 5 ML PO (20:02)
[2023-10-14] MEDS: MELATONIN 10 MG PO (20:10)
[2023-10-14 22:51] VITALS: BP 135/72
[2023-10-15] MEDS: RESTASIS 0.05% OPHTHALMIC EMULSION 1 DROPS BOTH EYES ×2 (07:30→20:01)
[2023-10-15] MEDS: VITAMIN D3 (cholecalciferol) 125 MCG PO (07:30)
[2023-10-15] MEDS: MUCINEX 600 MG PO ×2 (07:30→20:01)
[2023-10-15] MEDS: VIBRAMYCIN 100 MG PO ×2 (07:30→20:01)
[2023-10-15] MEDS: DELTASONE 40 MG PO (07:30)
[2023-10-15 07:59] VITALS: BP 128/83
[2023-10-15] MEDS: DUONEB 3 ML INH ×4 (08:06→20:36)
--- NOTE | 2023-10-15 10:30 | RESPNOTE ---
attempt to do home 02 assessment as order,
received pt on 5 lpm of nasal cannula, placed pt on room air and immediately within 2 minute pt's sats dropped to 84% and pt complained being SOB and dizzy. pt declined to walk at this time for safety reasons.
placed pt back on 02, pt needing 6 lpm of 02 to keep her sats to 91%.
Md and nurse made aware of this situation.
--- NOTE | 2023-10-15 11:26 | W.PN.HOSP.TC ---
Today's Communication/Plan
-
Repeat CXR
Wean O2 as able
Repeat home O2 eval again tomorrow.
Assessment / Plan
Assessment / Plan
Acute exacerbation of COPD-patient presents with new dry cough, progressive shortness of breath, and actively bronchospastic. known to have COPD. Suspect probably triggered by right lung process? Pneumonia.
Continue with steroids per pulm, nebulizers.
Slow improvement
Acute hypoxic respiratory insufficiency-patient's oxygenation was 84% on room air today during home O2 eval. Now on 6 L after home O2 eval. Slow clinical improvement. Doubt any new process. Will repeat a chest x-ray to confirm..
.
Right middle lobe opacification-possible pneumonia. She is not septic nor toxic currently. She had a prior right posterior lower lobe pneumonia which is followed with a repeat CT in July 2023 and it had cleared. She now has a recurrent
opacity. Will treat as community-acquired pneumonia with ceftriaxone and doxycycline. CW ABX. COVID-19 negative. Flu negative. Her procalcitonin is normal. Patient had a VSE which shows no aspiration cleared for regular solids.
Hyperlipidemia-continue home medication
Full code
Anticipated Discharge: 24 - 48 hours
Subjective/Interval History
-
Date of Service: October 15, 2023
Less cough. Still with exertional shortness of breath.
Today her oxygen level went up at 5 L. Dropped down to 84% on room air during home O2 evaluation. She is currently up at 6 L after exertion. She is saturating 91-92%.
When she gets paroxysmal cough the oxygen level goes down as well.
No fever or chills.
No chest pains.
Objective Data
-
Vital Signs:
Vital Signs
Temp Pulse Resp BP Pulse Ox
98.1 F 110 22 128/83 90
10/15/23 07:59 10/15/23 08:10 10/15/23 08:10 10/15/23 07:59 10/15/23 08:10
I&O
10/14/23 10/15/23 10/16/23
06:59 06:59 06:59
Intake Total 1559 / 1560 0 / 1560
Balance 15590 1559 / 156
Review of Systems
-
EENT: Denies Sore Throat
Abdomen/GI: Denies Abdominal Pain, Nausea or Vomiting
Neuro: Denies Dizzy
Physical Exam
-
General: No Apparent Distress
HEENT: Moist Mucous Membranes
Respiratory: Non Labored Respirations; Negative Wheezes, Rhonchi or Accessory Resp Muscle Use
Cardiac: Regular Rhythm and S1/S2
GI: Soft
Neuro: AO x 3
[2023-10-15 15:07] VITALS: BP 111/65
--- NOTE | 2023-10-15 15:09 | CM ---
CM reviewed chart, repeat home O2 evaluation tomorrow. CM will continue to follow for discharge planning needs.
Plan; home no needs, watch for home O2 eval tomorrow.
[2023-10-15] MEDS: ROCEPHIN 1000 MG IV (15:17)
[2023-10-15] MEDS: STERILE WATER FOR INJECTION 10 ML IV (15:18)
--- NOTE | 2023-10-15 18:11 | W.PN.PUL3 ---
Today's Communication / Plan
-
Continue current care.
Antibiotics, after completing full course of antibiotics for pneumonia may consider low-dose azithromycin for anti-inflammatory properties. Can be decided in the outpatient setting.
Bronchodilators via nebulizer while in the hospital
Antitussives
Mucolytic's
Oxygen supplementation will continue, may need to go home temporarily.
Continue to reassess for discharge readiness on a daily basis.
Assessment
-
72-year-old female with history of recent COVID infection 05/18/2023, right lower lobe pneumonia identified at [facility] with improvement radiographically, left shoulder surgery April 2023, heartburn, questionable COPD, significant
smoking history who presents with 3 days of increased shortness of breath. Unfortunate patient did not start her maintenance regimen as discussed in the past for obstructive lung disease. Chest x-ray suggest possible right lower lobe process.
Admitted for COPD exacerbation 10/11/2023
Acute hypoxic respiratory insufficiency
86% on room air
Acute COPD exacerbation
Questionable right lower lobe pneumonia/right middle lobe infiltrate
Recent right lower lobe pneumonia, improved radiographically July 2023
Conditions present prior to admission
Mild interstitial lung disease per CT chest
Few scattered nodules
Recent left apical nodule 5 mm per left shoulder imaging, February 2023 ([facility])
Mild emphysema per CT imaging
Hx of Covid April 2023
[id number] history of smoking, quit 20 years ago
History of latent tuberculosis
Subjective dyspnea, chronic
Plan/recommendations
Slowly improving
Main complaint is paroxysms of coughing.
Not significant bronchospastic and moving better air. Still short of breath.
-
No clear triggers although patient does describe symptoms consistent with allergies
Swallowing evaluation normal
No sick contacts-she does see her small grandchildren frequently.
Chest x-ray 10/15/2023: Showed slightly worsening right lower lobe abnormality. Suspect atelectasis.
Doubt acute pneumonia or acute process.
-
Difficult to differentiate between chronic changes and acute pneumonia, given symptoms okay to treat for infection.
Continue with empiric antibiotics for community-acquired pneumonia. Ceftriaxone/doxycycline
Afebrile, no leukocytosis.
Consider transition to oral antibiotics and complete total 7 days.
-
She had a left shoulder film in February 2023 at [facility] which commented on a 5 mm left upper lobe nodule
Will need outpatient radiographic follow-up.
Continue to wean oxygen-currently on 3 L.(Usually does not wear oxygen at home)
Continues to require 5 L with ambulation.
Hold on discharge today, reassess tomorrow.
Discontinued Decadron 10/15/2023.
Continue prednisone 40 mg and decrease by 10 mg every 72 hours to off.
DuoNebs 4 times a day-while in the hospital.
Patient was supposed to start outpatient maintenance inhaler, did not do so, recent PFT with normal FEV1, DLCO 61%
Had improved from FEV1 of 67% in the past
Resume Stiolto as o/p upon dc
Continue symptomatic management for coughing Acapella device
Incentive spirometry
DVT prophylaxis: enoxaparin
GI prophylaxis: pantoprazole
Okay with holding another 24 hours and reassess. Requiring up to 5-6 L with ambulation. Clinically better but significant coughing paroxysms. Feeling tired.
Follow-up with Dr. Sanchez after DC
Subjective Data
-
Date of Service:
Date of Service: October 15, 2023
Chief Complaint: Pulmonary Follow Up (Acute exacerbation COPD/pneumonia)
Subjective:
Reports less coughing but is still exertional shortness of breath.
Remains on pulse ox up to 5 L with ambulation.
Continues to report occasional paroxysmal cough spells.
No significant hemoptysis or phlegm production.
Review of Systems
General: Fever (n)
Cardiopulmonary: Dyspnea, Dyspnea on Exertion and Cough
Objective Data
Data Reviewed
Vital Signs / I&O / Oxygen:
Vital Signs
Temp Pulse Resp BP Pulse Ox
97.9 F 112 22 111/65 93
10/15/23 15:07 10/15/23 15:51 10/15/23 15:51 10/15/23 15:07 10/15/23 15:51
Intake and Output
10/14/23 10/15/23 10/16/23
06:59 06:59 06:59
Intake Total 1560 / 1560 1560 / 1560
Balance 1560 / 1560 1560 / 1560
SaO2 93
Nasal Cannula flow liters per 4
minute
Physical Exam
General: Comfortable
HEENT: Normocephalic, Anicteric and Other (Large neck)
Cardiovascular: S1-S2, Regular Rhythm, Murmur (n), Rub (n) and Peripheral Edema (n)
Respiratory: Wheeze (None), Crackles (n), Rhonchi (n), Non-Labored Respirations and Other (Air movement improved)
GI: Soft, Non Distended and Non Tender
Neurology: Awake, Alert and No Motor Deficits (Able to sit up without assistance)
Skin: Cyanosis (n), Jaundice (n) and Rash (n)
Labs/Micro/Reports
Lab Data
10/11/23 05:55
10/11/23 05:55
[2023-10-15] MEDS: CRESTOR 5 MG PO (18:15)
[2023-10-15] MEDS: LOVENOX 40 MG SC (18:15)
[2023-10-15] MEDS: TYLENOL 1000 MG PO (18:20)
[2023-10-15] MEDS: BENADRYL 50 MG PO (20:01)
[2023-10-15 23:55] VITALS: BP 143/94
[2023-10-16 07:29] VITALS: BP 182/81
[2023-10-16] MEDS: DUONEB 3 ML INH ×4 (08:19→20:12)
[2023-10-16] MEDS: RESTASIS 0.05% OPHTHALMIC EMULSION 1 DROPS BOTH EYES ×2 (08:44→20:15)
[2023-10-16] MEDS: MUCINEX 600 MG PO ×2 (08:44→20:12)
[2023-10-16] MEDS: VIBRAMYCIN 100 MG PO ×2 (08:44→20:12)
[2023-10-16] MEDS: TYLENOL 1000 MG PO ×2 (08:45→20:11)
[2023-10-16] MEDS: DELTASONE 40 MG PO (08:45)
[2023-10-16] MEDS: VITAMIN D3 (cholecalciferol) 125 MCG PO (08:45)
[2023-10-16 08:59] VITALS: BP 154/77
--- NOTE | 2023-10-16 10:49 | W.PN.PUL3 ---
Today's Communication / Plan
-
Continue current care.
Antibiotics, after completing full course of antibiotics for pneumonia may consider low-dose azithromycin for anti-inflammatory properties. Can be decided in the outpatient setting.
Bronchodilators via nebulizer while in the hospital
I will c/s CM for nebulizer kit at home
Antitussives
Mucolytics
Encourage IS given RML/RLL atelectasis seen on CXR on 10/15/2023
She will need repeat imaging as an outpatient to follow up improvement of RML/RLL atelectasis, and she has multiple pulmonary nodules that need radiographic surveillance.
Oxygen supplementation will continue, may need to go home temporarily - check home O2 eval tomorrow and plan for discharge 10/16
Assessment
-
72-year-old female with history of recent COVID infection 05/18/2023, right lower lobe pneumonia identified at [facility] with improvement radiographically, left shoulder surgery April 2023, heartburn, questionable COPD, significant
smoking history who presents with 3 days of increased shortness of breath. Unfortunate patient did not start her maintenance regimen as discussed in the past for obstructive lung disease. Chest x-ray suggest possible right lower lobe process.
Admitted for COPD exacerbation 10/11/2023
Acute hypoxic respiratory insufficiency
86% on room air - now improved on 3L/min supplemental O2
Acute COPD exacerbation
Questionable right lower lobe pneumonia/right middle lobe infiltrate
Recent right lower lobe pneumonia, improved radiographically July 2023
RML/RLL atelectasis mainly seen on CXR from 10/15/2023
Conditions present prior to admission
Mild interstitial lung disease per CT chest
Few scattered nodules mainly in RUL including two 6mm nodules
Recent left apical nodule 5 mm per left shoulder imaging, February 2023 ([facility])
Mild-moderate centrilobular emphysema per CT imaging
Hx of Covid April 2023
[id number] history of smoking, quit 20 years ago (she does not qualify for LDCT chest imaging for lung cancer screening)
History of latent tuberculosis
Subjective dyspnea, chronic
Plan/recommendations
Slowly improving
Previously her main complaint is paroxysms of coughing --> today (10/15) she says her coughing is much better
She says she 'wishes she took the trelegy that she was offered prior to admission.'
Not bronchospastic today and moving better air. Still short of breath mainly in the AM
-
No clear triggers although patient does describe symptoms consistent with allergies
Swallowing evaluation normal
No sick contacts-she does see her small grandchildren frequently.
Chest x-ray 10/15/2023: Showed slightly worsening right lower lobe abnormality. Suspect atelectasis.
Doubt acute pneumonia or acute process.
-
Difficult to differentiate between chronic changes and acute pneumonia, given symptoms okay to treat for infection.
Continue with empiric antibiotics for community-acquired pneumonia. Ceftriaxone/doxycycline - both started on 10/10
Afebrile, no leukocytosis.
Consider transition to oral antibiotics and complete total 7 days.
-
She had a left shoulder film in February [address] [facility] which commented on a 5 mm left upper lobe nodule --> she does have two RUL 6mm nodules that are stable between CT chest imaging on 05/2023 ro 07/2023 - this can be followed as an
outpatient.
Continue to wean oxygen-currently on 3 L.(Usually does not wear oxygen at home)
Continues to require 3-5 L with ambulation.
Check home O2 evaluation prior to discharge
Discontinued Decadron 10/15/2023.
Continue prednisone 40 mg and decrease by 10 mg every 72-96 hours to off.
DuoNebs 4 times a day-while in the hospital.
Patient was supposed to start outpatient maintenance inhaler with Trelegy, did not do so, recent PFT with normal FEV1, DLCO 61%
Had improved from FEV1 of 67% in the past
Resume Stiolto as o/p upon dc
Continue symptomatic management for coughing Acapella device
Incentive spirometry
DVT prophylaxis: enoxaparin
GI prophylaxis: pantoprazole
Would plan for discharge tomorrow (10/16) and we will arrange for outpatient follow up with our office with Dr. Sanchez.
We will continue to follow.
Patient was seen and evaluated on 10/16/2023.
Subjective Data
-
Date of Service:
Date of Service: October 16, 2023
Chief Complaint: Pulmonary Follow Up (Acute exacerbation COPD/pneumonia)
Subjective:
Seen today at bedside. Pt says she feels good, although she felt worse this AM. She is currently on 3L/min NC. Pt's daughter at bedside. All questions were answered. Pt is requesting a nebulizer once she is ready for home. She denies chest
pain, LAGOS, abd pain, worsening SOB, f/c.
Review of Systems
General: Other (neg unless mentioned above)
Objective Data
Data Reviewed
Vital Signs / I&O / Oxygen:
Vital Signs
Temp Pulse Resp BP Pulse Ox
98.1 F 111 18 154/77 93
10/16/23 07:29 10/16/23 08:59 10/16/23 08:20 10/16/23 08:59 10/16/23 08:59
Intake and Output
10/15/23 10/16/23 10/17/23
06:59 06:59 06:59
Intake Total 1560 / 1560 1260 / 1260
Balance 1560 / 1560 1260 / 1260
SaO2 93
Nasal Cannula flow liters per 3
minute
Physical Exam
General: Respiratory Distress (negative) and Comfortable
HEENT: Normocephalic, Anicteric and Other (Large neck)
Cardiovascular: S1-S2, Murmur (n), Rub (n) and Peripheral Edema (n)
Respiratory: Wheeze (None), Crackles (n), Rhonchi (n), Non-Labored Respirations and Other (Reduced BS at bases)
GI: Soft, Non Distended and Non Tender
Neurology: Awake, Alert and No Motor Deficits (Able to sit up without assistance)
Skin: Warm, Dry, Cyanosis (n), Jaundice (n) and Rash (n)
Labs/Micro/Reports
Lab Data
10/11/23 05:55
10/11/23 05:55
--- NOTE | 2023-10-16 11:14 | CM ---
Addendum entered by Romi Brunner 10/16/23 12:15:
Patient would like [facility] at discharge. referral sent
Plan; Home with [facility] and oxygen from [facility].
Original Note:
Chart reviewed and plan is for possible discharge tomorrow per physician, patient may need oxygen at discharge, hospice case manager will reach out to [facility] at [facility] [phone] to initiate a referral.
Plan; Possible discharge tomorrow, home oxygen assessment in am.
[2023-10-16] MEDS: SENOKOT 17.1999999999999993 MG PO ×2 (11:47→20:12)
--- NOTE | 2023-10-16 12:09 | W.PN.HOSP.TC ---
Today's Communication/Plan
-
assess for home O2 in AM
d/c planning
Assessment / Plan
Assessment / Plan
pt is a 72 year old female
Acute exacerbation of COPD--patient presents with new dry cough, progressive shortness of breath, and actively bronchospastic--Suspect probably triggered by right lung Pneumonia--cont slow steroid taper--assess for home O2--cont Abx for now
Acute hypoxic respiratory insufficiency--patient's oxygenation was 84% on room air today during home O2 eval. Now on 3 L-- Doubt any new process
Right middle lobe opacification--possible pneumonia. She is not septic nor toxic currently. She had a prior right posterior lower lobe pneumonia which is followed with a repeat CT in July 2023 and it had cleared. She now has a recurrent
opacity. Will treat as community-acquired pneumonia with ceftriaxone and doxycycline. CW ABX. COVID-19 negative. Flu negative. Her procalcitonin is normal. Patient had a VSE which shows no aspiration cleared for regular solids.
Hyperlipidemia-continue home medication
Full code
Anticipated Discharge: Within 24 hours
Subjective/Interval History
-
Date of Service: October 16, 2023
pt feeling a bit better--O2 turned down
Objective Data
-
Vital Signs:
max temp for 24 hours
10/16/23
07:29
Temp 98.1 F
Vital Signs
Temp Pulse Resp BP Pulse Ox
98.1 F 98 18 154/77 98
10/16/23 07:29 10/16/23 11:55 10/16/23 11:55 10/16/23 08:59 10/16/23 11:55
I&O
10/15/23 10/16/23 10/17/23
06:59 06:59 06:59
Intake Total 1560 / 1560 1260 / 1260
Balance 1560 / 1560 1260 / 1260
Review of Systems
-
All other systems: Reviewed and negative
Physical Exam
-
General: Well Developed, Well Nourished and No Apparent Distress
HEENT: Normocephalic, Atraumatic and Oxygen
Respiratory: Decreased Breath Sounds (right lung field decreased breath sounds)
Cardiac: Regular Rhythm and S1/S2; Negative Murmur
GI: Soft, Nontender, Nondistended and Normal Bowel Sounds
Musculoskeletal: No Clubbing, No Cyanosis and No Edema
Skin: Warm
Neuro: Awake
[2023-10-16] MEDS: STERILE WATER FOR INJECTION 10 ML IV (13:08)
[2023-10-16] MEDS: ROCEPHIN 1000 MG IV (13:08)
[2023-10-16 15:48] VITALS: BP 131/66
[2023-10-16] MEDS: LOVENOX 40 MG SC (17:06)
[2023-10-16] MEDS: CRESTOR 5 MG PO (17:07)
[2023-10-16] MEDS: MELATONIN 10 MG PO (20:11)
[2023-10-16 22:47] VITALS: BP 146/88
[2023-10-17 05:35] LABS: % Basophils 0.1 % (0-2); % Eosinophils 3.3 % (0-6); % Immature Granulocytes 0.7 % (0-0.5); % Lymphocytes 30.8 % (20.5-51.1); % Monocytes 6.5 % (1.7-9.3); % Neutrophils 58.6 % (42.2-75.2); Absolute Eosinophils 0.4 10^3/uL (0-0.7); Absolute Immature Granulocytes 0.1 10^3/uL (0-0.05); Absolute Lymphocytes 3.2 10^3/uL (1.2-3.4); Absolute Monocytes 0.7 10^3/uL (0.1-0.6); Absolute Neutrophils 6.2 10^3/uL (1.4-6.5); Hematocrit 36.5 % (37.0-47.0); Hemoglobin 12.2 g/dL (12.0-16.0); Mean Corp Hgb Conc. 33.4 g/dL (33.0-37.0); Mean Corpuscular Hgb 30.4 pg (27.0-31.0); Mean Platelet Volume 9.1 fL (7.4-10.4); Nucleated Red Blood Cells % 0 %; Platelet Count 246 10^3/uL (130-400); Red Blood Cell Count 4.01 10^6/uL (4.20-5.40); Red Cell Dist. Width 14.1 % (11.5-14.5); White Blood Cell Count 10.5 10^3/uL (4.8-10.8)
[2023-10-17 06:16] LABS: Blood Urea Nitrogen 26 mg/dl (7-17); Calcium 10.1 mg/dl (8.4-10.2); Carbon Dioxide 25 mmol/L (22-30); Chloride 106 mmol/L (98-107); Estimated Creatinine Clearance 62 ml/min; Glucose 83 mg/dl (70-99); Magnesium 1.9 mg/dl (1.6-2.3); Potassium 4.4 mmol/L (3.5-5.1); Sodium 139 mmol/L (135-145); eGFR > 60.00
[2023-10-17 07:00] VITALS: BP 137/87
[2023-10-17] MEDS: DUONEB 3 ML INH ×4 (08:16→20:01)
[2023-10-17] MEDS: DELTASONE 40 MG PO (08:51)
[2023-10-17] MEDS: RESTASIS 0.05% OPHTHALMIC EMULSION 1 DROPS BOTH EYES ×2 (08:51→20:58)
[2023-10-17] MEDS: MUCINEX 600 MG PO ×2 (08:51→20:59)
[2023-10-17] MEDS: VITAMIN D3 (cholecalciferol) 125 MCG PO (08:52)
[2023-10-17] MEDS: SENOKOT 17.1999999999999993 MG PO ×2 (08:52→20:59)
[2023-10-17] MEDS: VIBRAMYCIN 100 MG PO (08:52)
[2023-10-17] MEDS: TYLENOL 1000 MG PO ×2 (09:05→20:58)
--- NOTE | 2023-10-17 11:30 | W.PN.PUL3 ---
Today's Communication / Plan
-
Continue current care
Diurese with lasix and check 2D-echo; trend BNP; if echo abnormal then consult cardiology
Antibiotics, after completing full course of antibiotics for pneumonia may consider low-dose azithromycin for anti-inflammatory properties. Can be decided in the outpatient setting.
Trend procal
Bronchodilators via nebulizer while in the hospital
I consulted CM for nebulizer kit at home
Antitussives
Mucolytics
Encourage IS given RML/RLL atelectasis seen on CXR on 10/15/2023
She will need repeat imaging as an outpatient to follow up improvement of RML/RLL atelectasis, and she has multiple pulmonary nodules that need radiographic surveillance.
Oxygen supplementation will continue, may need to go home temporarily - check home O2 eval prior to discharge
Assessment
-
72-year-old female with history of recent COVID infection 05/18/2023, right lower lobe pneumonia identified at [facility] with improvement radiographically, left shoulder surgery April 2023, heartburn, questionable COPD, significant
smoking history who presents with 3 days of increased shortness of breath. Unfortunate patient did not start her maintenance regimen as discussed in the past for obstructive lung disease. Chest x-ray suggest possible right lower lobe process.
Admitted for COPD exacerbation 10/11/2023
Acute hypoxic respiratory insufficiency
86% on room air - now on 4L/min supplemental O2
Acute COPD exacerbation
Right lower lobe/RML pneumonia
Recent right lower lobe pneumonia, improved radiographically July 2023
RML/RLL atelectasis mainly seen on CXR from 10/15/2023
Volume overload with L-sided pleural effusion - she is net (+) >6L since admission with prominent bronchovascular markings on today's CXR; DDx includes acute CHF
Conditions present prior to admission
Mild interstitial lung disease per CT chest
Few scattered nodules mainly in RUL including two 6mm nodules
Recent left apical nodule 5 mm per left shoulder imaging, February 2023 ([facility])
Mild-moderate centrilobular emphysema per CT imaging
Hx of Covid April 2023
[id number] history of smoking, quit 20 years ago (she does not qualify for LDCT chest imaging for lung cancer screening)
History of latent tuberculosis
Subjective dyspnea, chronic
Plan/recommendations
Prior to today she was slowly improving --> she now has worsened today, with more SOB and CXR shows worsening RLL opacity and new left pleural effusion with suspected interstitial edema
Previously her main complaint was paroxysms of coughing --> as of 10/15 her cough has improved
She says she 'wishes she took the trelegy that she was offered prior to admission.'
Still not bronchospastic
-
No clear triggers although patient does describe symptoms consistent with allergies
Swallowing evaluation normal
No sick contacts-she does see her small grandchildren frequently.
Chest x-ray 10/15/2023: Showed slightly worsening right lower lobe abnormality. Suspect atelectasis.
Chest XR today (10/16) shows worsening opacification of RLL + L-pleural effusion --> IV flagyl added; given concern for acute fluid overload I will order lasix 20mg IVP x1, will check TTE and check/trend BNP
-
Prior to 10/16, it was difficult to differentiate between chronic changes and acute pneumonia, given symptoms okay to treat for infection.
Continue with empiric antibiotics for community-acquired pneumonia. Ceftriaxone/doxycycline - both started on 10/10 --> now as of 10/16 doxy has been completed and IV flagyl was started. I will trend procal
-
She had a left shoulder film in February 2023 at [facility] which commented on a 5 mm left upper lobe nodule --> she does have two RUL 6mm nodules that are stable between CT chest imaging on 05/2023 to 07/2023 - this can be followed as an
outpatient.
Continue to wean oxygen-currently on 4 L.(Usually does not wear oxygen at home)
Continues to require 3-5 L with ambulation.
Check home O2 evaluation prior to discharge
Discontinued Decadron 10/15/2023.
Continue prednisone 40 mg and decrease by 10 mg every 72-96 hours to off, joshua if she improves with diuresis
DuoNebs 4 times a day-while in the hospital.
Patient was supposed to start outpatient maintenance inhaler with Trelegy, did not do so, recent PFT with normal FEV1, DLCO 61%
Had improved from FEV1 of 67% in the past
Resume Stiolto as o/p upon dc, and could make a case to start Trelegy vs Breztri given she has worsening SOB as of 10/16
Continue symptomatic management for coughing Acapella device
Incentive spirometry
DVT prophylaxis: enoxaparin
GI prophylaxis: pantoprazole
Once ready for discharge, we will arrange for outpatient follow up with our office with Dr. Sanchez.
We will continue to follow.
Total time spent today was 35 minutes for this encounter. Time includes reviewing laboratory test/imaging results, reviewing pertinent medical records, obtaining and reviewing medical history, performing an appropriate exam, ordering medications,
tests and procedures. Time also includes documentation of this encounter, coordinating patient care and communicating with other healthcare professionals. Total time does not include separately billed tests performed on this date of service.
Data:
CXR 10-17-2023:
Small right pleural effusion. Stable.
Tiny left pleural effusion. New
Progressed airspace disease in right lower lung field concerning for pneumonia. Mild.
Subjective Data
-
Date of Service:
Date of Service: October 17, 2023
Chief Complaint: Pulmonary Follow Up (Acute exacerbation COPD/pneumonia)
Subjective:
Patient seen and evaluated today. She says that since she woke up this morning she has been more short of breath. Still coughing but not worsening. She does not have any phlegm that she is bringing up. She denies chest pain. She feels overall
tired today. She is on 4 L/min when I saw her. She is getting worried because she thought that she was getting better yesterday but today she feels much worse overall. Denies headache, chest pain, fevers or chills
Review of Systems
General: Other (Negative unless mentioned above)
Objective Data
Data Reviewed
Vital Signs / I&O / Oxygen:
Vital Signs
Temp Pulse Resp BP Pulse Ox
97.9 F 101 18 155/99 90
10/17/23 15:00 10/17/23 15:45 10/17/23 15:45 10/17/23 15:00 10/17/23 15:45
Intake and Output
10/16/23 10/17/23 10/18/23
06:59 06:59 06:59
Intake Total 1260 / 1260 240 / 240 960 / 960
Balance 1260 / 1260 240 / 240 960 / 960
SaO2 90
Nasal Cannula flow liters per 3
minute
Physical Exam
General: Respiratory Distress (negative) and Comfortable
HEENT: Normocephalic, Anicteric and Other (Large neck)
Cardiovascular: S1-S2, Murmur (n), Rub (n) and Peripheral Edema (n)
Respiratory: Wheeze (None), Crackles (n), Rhonchi (n), Non-Labored Respirations and Other (Reduced BS at bases; coarse breath sounds heard in the bases bilaterally)
GI: Soft, Non Distended and Non Tender
Neurology: Awake, Alert and Tremors (negative)
Skin: Warm, Dry, Cyanosis (n), Jaundice (n) and Rash (n)
Labs/Micro/Reports
Lab Data
10/17/23 05:29
10/17/23 05:29
--- NOTE | 2023-10-17 12:14 | CM ---
Chart reviewed and telehealth case manager met with patient this am, plan is to have patient tested for home oxygen, patient's physician is requesting nebulizer, mask and tubing, telehealth case manager reached out to [facility] at [facility] and clinical faxed over,
will need script and documentation from physician on chart to submit to insurance for coverage.
Plan; Home with [facility] and home oxygen and nebulizer from [facility].
--- NOTE | 2023-10-17 12:45 | W.PN.HOSP.TC ---
Today's Communication/Plan
-
add pulmicort
add flagyl to rocephin
will need repeat CXR and assess for O2
Assessment / Plan
Assessment / Plan
pt is a 72 year old female
Acute exacerbation of COPD--patient presents with new dry cough, progressive shortness of breath, and actively bronchospastic--Suspect probably triggered by right lung Pneumonia--cont slow steroid taper--assess for home O2, failed, not ready for
d/c--recheck CXR--on rocephin, consider adding or changing med --add pulmicort --on prednisone 40 mg daily, may need increase dosing
Acute hypoxic respiratory insufficiency--patient's oxygenation was 84% on room air today during home O2 eval. Now on 3 L-- Doubt any new process
Right middle lobe opacification--possible pneumonia. She is not septic nor toxic currently. She had a prior right posterior lower lobe pneumonia which is followed with a repeat CT in July 2023 and it had cleared. She now has a recurrent
opacity. Will treat as community-acquired pneumonia with ceftriaxone and doxycycline. CW ABX. COVID-19 negative. Flu negative. Her procalcitonin is normal. Patient had a VSE which shows no aspiration cleared for regular solids.
Hyperlipidemia-continue home medication
Full code
Anticipated Discharge: 24 - 48 hours
Subjective/Interval History
-
Date of Service: October 17, 2023
pt failed assessment for home O2--was 85% on 6L--not ready for d/c
Objective Data
-
Labs:
Laboratory Results
10/17/23
05:29
WBC 10.5
Hgb 12.2
Hct 36.5 L
Plt Count 246
Sodium 139
Potassium 4.4
Chloride 106
Carbon Dioxide 25
BUN 26 H
Creatinine 0.9
Glucose 83
Calcium 10.1
Vital Signs:
max temp for 24 hours
10/16/23
15:48
Temp 98.6 F
Vital Signs
Temp Pulse Resp BP Pulse Ox
98.1 F 102 18 137/87 91
10/17/23 07:00 10/17/23 11:38 10/17/23 11:38 10/17/23 07:00 10/17/23 11:38
I&O
10/16/23 10/17/23 10/18/23
06:59 06:59 06:59
Intake Total 1260 / 1260 240 / 240
Balance 1260 / 1260 240 / 240
Review of Systems
-
All other systems: Reviewed and negative
Respiratory: Reports Cough, Trouble Breathing and Wheezing
Physical Exam
-
General: Well Developed, Well Nourished and No Apparent Distress
HEENT: Normocephalic, Atraumatic and Oxygen
Respiratory: Wheezes and Rhonchi
Cardiac: Regular Rhythm and S1/S2; Negative Murmur
GI: Soft, Nontender, Nondistended and Normal Bowel Sounds
Musculoskeletal: No Clubbing, No Cyanosis and No Edema
Neuro: Awake and Alert
Psych: Calm
[2023-10-17] MEDS: FLAGYL 500 MG 100 IV ×2 (13:18→20:59)
[2023-10-17] MEDS: ROCEPHIN 1000 MG IV (13:18)
[2023-10-17] MEDS: STERILE WATER FOR INJECTION 10 ML IV (13:18)
[2023-10-17 15:00] VITALS: BP 155/99
[2023-10-17] MEDS: LOVENOX 40 MG SC (17:11)
[2023-10-17] MEDS: CRESTOR 5 MG PO (17:11)
[2023-10-17] MEDS: LASIX 20 MG IV (18:22)
[2023-10-17] MEDS: PULMICORT 0.5 MG INH (20:01)
[2023-10-17] MEDS: BENADRYL 50 MG PO (20:58)
[2023-10-17 22:58] VITALS: BP 127/80
[2023-10-18] MEDS: FLAGYL 500 MG 100 IV ×2 (05:10→13:56)
[2023-10-18 05:17] LABS: Hematocrit 37.6 % (37.0-47.0); Hemoglobin 12.9 g/dL (12.0-16.0); Mean Corp Hgb Conc. 34.3 g/dL (33.0-37.0); Mean Corpuscular Hgb 30.8 pg (27.0-31.0); Mean Corpuscular Volume 89.7 fL (81.0-99.0); Mean Platelet Volume 9.2 fL (7.4-10.4); Platelet Count 287 10^3/uL (130-400); Red Blood Cell Count 4.19 10^6/uL (4.20-5.40); Red Cell Dist. Width 14.2 % (11.5-14.5); White Blood Cell Count 11.4 10^3/uL (4.8-10.8)
[2023-10-18 05:35] LABS: Blood Urea Nitrogen 27 mg/dl (7-17); Calcium 9.8 mg/dl (8.4-10.2); Carbon Dioxide 24 mmol/L (22-30); Chloride 106 mmol/L (98-107); Estimated Creatinine Clearance 56 ml/min; Glucose 86 mg/dl (70-99); Magnesium 1.9 mg/dl (1.6-2.3); Potassium 3.8 mmol/L (3.5-5.1); Sodium 139 mmol/L (135-145); eGFR 59.86
[2023-10-18 05:38] LABS: Procalcitonin < 0.05 ng/ml (0.0-0.25)
[2023-10-18 05:42] LABS: NT-proBNP 477 pg/ml
[2023-10-18 07:00] VITALS: BP 147/80
[2023-10-18] MEDS: MUCINEX 600 MG PO ×2 (07:46→20:28)
[2023-10-18] MEDS: SENOKOT 17.1999999999999993 MG PO ×2 (07:46→20:28)
[2023-10-18] MEDS: RESTASIS 0.05% OPHTHALMIC EMULSION 1 DROPS BOTH EYES ×2 (07:46→20:31)
[2023-10-18] MEDS: DELTASONE 40 MG PO (07:46)
[2023-10-18] MEDS: VITAMIN D3 (cholecalciferol) 125 MCG PO (07:46)
[2023-10-18] MEDS: DUONEB INH (08:09)
[2023-10-18] MEDS: PULMICORT INH (08:09)
[2023-10-18] MEDS: PULMICORT 0.5 MG INH ×2 (08:36→19:09)
[2023-10-18] MEDS: DUONEB 3 ML INH ×4 (08:36→19:09)
--- NOTE | 2023-10-18 09:00 | W.PN.HOSP.TC ---
Today's Communication/Plan
-
IV steroids
Midflow O2
Ct chest r/o PE
Assessment / Plan
Assessment / Plan
pt is a 72 year old female
Acute exacerbation of COPD--patient presents with new dry cough, progressive shortness of breath, and actively bronchospastic--Suspect probably triggered by right lung Pneumonia--cont slow steroid taper--assess for home O2, failed, not ready for
d/c--recheck CXR--on rocephin, consider adding or changing med --add pulmicort --on prednisone 40 mg daily, pulm to start IV solumedrol....
Acute hypoxic respiratory insufficiency--persistently hypoxic--patient's oxygenation was 84% on room air today during home O2 eval. Now on 5 L-- Doubt any new process--echo pending--CT PE study pending...spoke with pulbaljinder....
Right middle lobe opacification--possible pneumonia. She is not septic nor toxic currently. She had a prior right posterior lower lobe pneumonia which is followed with a repeat CT in July 2023 and it had cleared. She now has a recurrent
opacity. Will treat as community-acquired pneumonia with ceftriaxone and doxycycline. CW ABX. COVID-19 negative. Flu negative. Her procalcitonin is normal. Patient had a VSE which shows no aspiration cleared for regular solids.
Hyperlipidemia-continue home medication
Full code
Anticipated Discharge: > 48 hours
Subjective/Interval History
-
Date of Service: October 18, 2023
pt remains hypoxic on 5L
Objective Data
-
Labs:
Laboratory Results
10/18/23
04:58
WBC 11.4 H
Hgb 12.9
Hct 37.6
Plt Count 287
Sodium 139
Potassium 3.8
Chloride 106
Carbon Dioxide 24
BUN 27 H
Creatinine 1.0
Glucose 86
Calcium 9.8
Vital Signs:
max temp for 24 hours
10/17/23
22:58
Temp 98.1 F
Vital Signs
Temp Pulse Resp BP Pulse Ox
97.9 F 104 20 147/80 90
10/18/23 07:00 10/18/23 08:38 10/18/23 08:38 10/18/23 07:00 10/18/23 08:38
I&O
10/17/23 10/18/23 10/19/23
06:59 06:59 06:59
Intake Total 240 / 240 1440 / 1440
Balance 240 / 240 1440 / 1440
Review of Systems
-
All other systems: Reviewed and negative
Respiratory: Reports Cough, Trouble Breathing and Wheezing
Physical Exam
-
General: Well Developed, Well Nourished and No Apparent Distress
HEENT: Normocephalic, Atraumatic and Oxygen
Respiratory: Negative Rhonchi (raspy breath sounds)
Cardiac: Regular Rhythm and S1/S2; Negative Murmur
GI: Soft, Nontender, Nondistended and Normal Bowel Sounds
Musculoskeletal: No Clubbing, No Cyanosis and No Edema
Skin: Warm
Neuro: Awake
[2023-10-18] MEDS: TYLENOL 1000 MG PO (10:16)
[2023-10-18] MEDS: SOLU-MEDROL PF 40 MG IV ×3 (11:40→23:17)
--- NOTE | 2023-10-18 11:55 | W.PN.PUL3 ---
Today's Communication / Plan
-
Continue current care
Antibiotics, after completing full course of antibiotics for pneumonia may consider low-dose azithromycin for anti-inflammatory properties
ID consult
Raise steroids to Solu-Medrol
May need to broaden Abx further to cover Pseudomonas if she spikes fever or fails to improve
Trend procal
Bronchodilators via nebulizer while in the hospital
Antitussives
Mucolytics
Encourage IS given RML/RLL atelectasis seen on CXR on 10/15/2023
She will need repeat imaging as an outpatient to follow up improvement of RML/RLL atelectasis, and she has multiple pulmonary nodules that need radiographic surveillance.
If pt fails to improve or has worsening SaO2 despite being on midflow, then TRX to IMU and start high flow
Assessment
-
72-year-old female with history of recent COVID infection 05/18/2023, right lower lobe pneumonia identified at [facility] with improvement radiographically, left shoulder surgery April 2023, heartburn, questionable COPD, significant
smoking history who presents with 3 days of increased shortness of breath. Unfortunate patient did not start her maintenance regimen as discussed in the past for obstructive lung disease. Chest x-ray suggest possible right lower lobe process.
Admitted for COPD exacerbation 10/11/2023
Acute hypoxic respiratory insufficiency
86% on room air - now on 15L/min supplemental O2
Acute COPD exacerbation
Right lower lobe/RML pneumonia - pt worsening clinically and radiographically on 10/18/2023
Recent right lower lobe pneumonia, improved radiographically July 2023
RML/RLL atelectasis mainly seen on CXR from 10/15/2023
Volume overload with L-sided pleural effusion - she is net (+) >6L since admission with prominent bronchovascular markings on CXR from 10/16; this seemed to resolve as per today's CTA chest
Conditions present prior to admission
Mild interstitial lung disease per CT chest
Few scattered nodules mainly in RUL including two 6mm nodules
Recent left apical nodule 5 mm per left shoulder imaging, February 2023 ([facility])
Mild-moderate centrilobular emphysema per CT imaging
Hx of Covid April 2023
25-gcmf-koba history of smoking, quit 20 years ago (she does not qualify for LDCT chest imaging for lung cancer screening)
History of latent tuberculosis
Subjective dyspnea, chronic
Plan/recommendations
Prior to 10/16 she was slowly improving --> ever since 10/16 she has worsened with increasing SOB and CXR on 10/16 shows worsening RLL opacity and new left pleural effusion with suspected interstitial edema --> she was Tx with IV lasix x1, but now as of
10/16 has worsening O2 requirements. CTA chest shows worsening RLL pneumonia with postero-medial RLL atelectasis --> I will raise her steroids back to IV with solumedrol 40mg q8hr, and I will consult ID as she has worsening PNA despite being on Abx
(currently on rocephin +flagyl s/p doxy from 10/10 - 10/16)
Previously her main complaint was paroxysms of coughing --> as of 10/15 her cough has improved
She says she 'wishes she took the trelegy that she was offered prior to admission.'
Still not bronchospastic
-
No clear triggers although patient does describe symptoms consistent with allergies
Swallowing evaluation normal
No sick contacts-she does see her small grandchildren frequently.
Chest x-ray 10/15/2023: Showed slightly worsening right lower lobe abnormality. Suspect atelectasis.
Chest XR today (10/16) shows worsening opacification of RLL + L-pleural effusion --> IV flagyl added; given concern for acute fluid overload I ordered lasix 20mg IVP x1, TTE done today showed normal LVEF 60-65% with moderate TR, moderate pHTN and
normal RV sizeFx; trend BNP (477 today; last BNP was 544 in May 2023)
-
Prior to 5/7, it was difficult to differentiate between chronic changes and acute pneumonia, given symptoms okay to treat for infection.
Continue with empiric antibiotics for community-acquired pneumonia. Ceftriaxone/doxycycline - both started on 10/10 --> now as of 10/16 doxy has been completed and IV flagyl was started. Procal negative x2; ID consulted
-
She had a left shoulder film in February 2023 at [facility] which commented on a 5 mm left upper lobe nodule --> she does have two RUL 6mm nodules that are stable between CT chest imaging on 05/2023 to 07/2023 - this can be followed as an
outpatient.
Continue to wean oxygen-currently on 15 L/min via midflow (Usually does not wear oxygen at home)
Check home O2 evaluation prior to discharge - she is not close to discharge yet given her setback with worsening RLL PNA and now worsening O2 requirements
She may need increase level of care with High flow nasal cannula if she remains SOB or has worsening hypoxia despite being on midflow.
keep SpO2 >88%
Discontinued Decadron 10/15/2023.
Was on prednisone 40 mg but given worsening hypoxia I will raise steroids to solumedrol 40mg IV q8hr and will taper as she clinically improves.
DuoNebs 4 times a day-while in the hospital + pulmicort
Patient was supposed to start outpatient maintenance inhaler with Trelegy, did not do so, recent PFT with normal FEV1, DLCO 61%
Had improved from FEV1 of 67% in the past
Resume Stiolto as o/p upon dc, and could make a case to start Trelegy vs Breztri given she has worsening SOB as of 10/16
Continue symptomatic management for coughing Acapella device
Incentive spirometry
DVT prophylaxis: enoxaparin
GI prophylaxis: pantoprazole
Once ready for discharge, we will arrange for outpatient follow up with our office with Dr. Sanchez.
We will continue to follow.
Total time spent today was 50 minutes for this encounter. Time includes reviewing laboratory test/imaging results, reviewing pertinent medical records, obtaining and reviewing medical history, performing an appropriate exam, ordering medications,
tests and procedures. Time also includes documentation of this encounter, coordinating patient care and communicating with other healthcare professionals. Total time does not include separately billed tests performed on this date of service.
Data:
CTA Chest 10-18-2023:
Moderate consolidation in the posterior right lung base, as well has patchy airspace opacity in the right lower lobe, consistent with pneumonia. Minor atelectasis versus pneumonia in the left lower lobe.
Moderate emphysematous lung changes.
Focal irregular opacity/scarring in the posterior right upper lobe is stable.
CXR 10-17-2023:
Small right pleural effusion. Stable.
Tiny left pleural effusion. New
Progressed airspace disease in right lower lung field concerning for pneumonia. Mild.
Subjective Data
-
Date of Service:
Date of Service: October 18, 2023
Chief Complaint: Pulmonary Follow Up (Acute exacerbation COPD/pneumonia)
Subjective:
Patient seen this morning. Having worsening hypoxia after home O2 evaluation and now she is on 15 L/min via mid flow. Saturations are now 94%. When I saw the patient she says that she actually is starting to feel better despite her high oxygen
requirements. No worsening cough, and denies chest pain, headache, abdominal pain, fevers or chills.
Review of Systems
General: Other (Negative unless mentioned above)
Objective Data
Data Reviewed
Vital Signs / I&O / Oxygen:
Vital Signs
Temp Pulse Resp BP Pulse Ox
97.9 F 99 18 147/80 94
10/18/23 07:00 10/18/23 11:23 10/18/23 11:23 10/18/23 07:00 10/18/23 11:23
Intake and Output
10/17/23 10/18/23 10/19/23
06:59 06:59 06:59
Intake Total 240 / 240 1440 / 1440
Balance 240 / 240 1440 / 1440
SaO2 94
Nasal Cannula flow liters per 5
minute
Physical Exam
General: Respiratory Distress (negative) and Comfortable
HEENT: Normocephalic, Anicteric and Other (Large neck)
Cardiovascular: S1-S2, Murmur (n), Rub (n) and Peripheral Edema (n)
Respiratory: Wheeze (None), Crackles (n), Rhonchi (n), Non-Labored Respirations and Other (Reduced BS overall, and coarse breath sounds heard in the bases bilaterally)
GI: Soft, Non Distended and Non Tender
Neurology: Awake, Alert and Tremors (negative)
Skin: Warm, Dry, Cyanosis (n), Jaundice (n) and Rash (n)
Labs/Micro/Reports
Lab Data
10/18/23 04:58
10/18/23 04:58
--- NOTE | 2023-10-18 12:04 | VNURNOTE ---
Home health liaison met with patient to discuss [facility] services, visit scheduling/frequency, homebound status and pet policy. Patient understands home visits will be 1-2 times a week to assess and teach medical management. Patient aware a visiting
nurse will contact them for start of care within 1-2 days after discharge from . Brochure given with contact information. [facility] Referral completed in care port. Prescription for nebulizer and oxygen faxed to [facility] 10/18/23
[2023-10-18] MEDS: STERILE WATER FOR INJECTION 10 ML IV (13:56)
[2023-10-18] MEDS: ROCEPHIN 1000 MG IV (13:56)
[2023-10-18 15:00] VITALS: BP 127/93
--- NOTE | 2023-10-18 15:03 | CM ---
Chart reviewed and patient is not cleared for discharge, casework supervisor continues to follow with patient's oxygen needs, patient will need testing closer to discharge, casework supervisor faxed a referral to [facility] and spoke with Noble she will
need testing faxed to her along with documentation by physician closer to discharge, patient will also be set up with a Nebulizer. Patient has been referred to [facility].
Plan; Home with [facility], home oxygen, and Nebulizer from [employer].
--- NOTE | 2023-10-18 15:24 | CON.ID ---
Consultation
-
Date/Time Consultation Requested: 10/18/23 14:46
Date/Time Consultation Performed: 10/18/23 15:25
Requesting Provider: Dr Patel
Performing Provider: Dr Le
Reason for Consultation: Worsening RLL pneumonia with acute hypoxia; eval and treat
Chief Complaint / Past History
Chief Complaint
Shortness of breath and cough
History of Present Illness
Ms Womack is a 72 year old female with COPD, latent TB with recent diagnosis of RLL pneumonia, reports a follow up CT chest showed improvement. She was planned to start new inhalers/medications for COPD but reports she felt well and did not start
the medications. Home medicine list did not include steroids. Reports increased, dry cough from her baseline. Has developed shortness of breath over the last 3-4 days. No fevers or chills. No history of seasonal allergies. No sick contacts,
travel, or pets.
Since arrival here she has been afebrile, bp stable, wbc initially 7.7 today 11.4 on steroids, hgb 12.9, plt 287, no L shift first two days, cr 1.0, t bili 0.5, ast 38, alt 26, alk phos 81, probnp 477, procalc neg 10/10 and neg again today. probnp
477. covid ag neg 10/10; has not been retested. 10/10 CXR right middle lobe infiltrate, 10/10 she was started on ceftriaxone and doxycycline which was continued until 10/17 and then doxycycline switched to metronidazole, procal neg 10/10 and neg again 10/17.
10/17 CTA chest - no PE with confidence to the proximal segmental level - moderate copd. Moderate consolidation in the posterior right lung base, as well has patchy airspace opacity in the right lower lobe, consistent with pneumonia. Now requiring
15L NC echo: normal ef. TR now moderate to severe and increased PA pressure - moderate pulm HTN.
Past History
Additional Past Medical History:
COPD and Hypercholesterolemia
Additional Past Surgical History:
Left shoulder replacement 6 months ago. Left knee replacement 9 years ago
Allergy History:
Opioids - Morphine Analogues Allergy (Verified 10/11/23 05:40)
Nausea / Vomiting
Medications Reviewed: Yes
Social History
Tobacco: Former Smoker
Alcohol: Occasional
Drug: None
Family History
Family History: Not Pertinent
Review of Systems
Review of Systems
General: Negative Fever or Chills
All systems: All other systems were reviewed and were negative
Vital Signs
Temp Pulse Resp BP Pulse Ox
97.9 F 99 18 147/80 94
10/18/23 07:00 10/18/23 11:23 10/18/23 11:23 10/18/23 07:00 10/18/23 11:23
Physical Exam
Physical Exam
Constitutional: No Acute Distress
Cardiovascular: Regular Rate and S1/S2; Negative Murmur or Rub
Pulmonary: Clear and Symmetric; Negative Wheezes, Rales or Rhonchi
Gastrointestinal: Soft, Non Tender, Non Distended and Normal Bowel Sounds
Skin: Warm and Dry; Negative Rash or Jaundice
Lab / Diagnostic Study Results
10/18/23 04:58
10/18/23 04:58
Abs Immat Gran (auto) 0.1 10^3/uL (0-0.05) H 10/17/23 05:29
Absolute Neuts (auto) 6.2 10^3/uL (1.4-6.5) 10/17/23 05:29
Absolute Lymphs (auto) 3.2 10^3/uL (1.2-3.4) 10/17/23 05:29
Absolute Monos (auto) 0.7 10^3/uL (0.1-0.6) H 10/17/23 05:29
Absolute Basos (auto) 0.0 10^3/uL (0-0.2) 10/17/23 05:29
Immature Gran % 0.7 % (0-0.5) H 10/17/23 05:29
Neutrophils % 58.6 % (42.2-75.2) 10/17/23 05:29
Lymphocytes % 30.8 % (20.5-51.1) 10/17/23 05:29
Monocytes % 6.5 % (1.7-9.3) 10/17/23 05:29
Eosinophils % 3.3 % (0-6) 10/17/23 05:29
Basophils % 0.1 % (0-2) 10/17/23 05:29
Procalcitonin < 0.05 ng/ml (0.0-0.25) 10/18/23 04:58
Microbiology Results
Micro:
10/11/23 06:30 Influenza Types A & B (ROSY) - Final
Nasal Swab Negative for Influenza A & B, NAAT
Negative results must be combined with clinical observations
and patient history.
Nucleic Acid Amplification test (NAAT)performed on the
[employer] platform.
Assessment / Plan
Pneumonia
COPDe
Pulmonary HTN - new
- afebrile, minimal leukocytosis on steroids; procalcitonin negative again this am, however with notably increased O2 requirements. Difficult to compare CT chest to previous CXRs.
- CTA nondiagnostic for PE due to motion artifact
- respiratory viral panel ordered
- repeat COVID ag (last done 1 week ago) negative
- Qtc acceptbale; fine to switch to levaquin; stopped ceftriaxone/metronidazole
- recheck qtc in the AM
- follow clinically
Care Review
Plan reviewed with: Physician (Dr Patel - pe)
[2023-10-18 16:07] LABS: COVID-19 Antigen Negative (Negative)
[2023-10-18] MEDS: LOVENOX 40 MG SC (17:20)
[2023-10-18] MEDS: LEVAQUIN 750 MG PO (17:20)
[2023-10-18] MEDS: CRESTOR 5 MG PO (17:20)
[2023-10-18] MEDS: BENADRYL 50 MG PO (20:36)
[2023-10-19] MEDS: TYLENOL 1000 MG PO ×2 (06:24→20:29)
[2023-10-19 06:29] LABS: % Basophils 0.2 % (0-2); % Immature Granulocytes 0.8 % (0-0.5); % Lymphocytes 8.8 % (20.5-51.1); % Monocytes 3.4 % (1.7-9.3); % Neutrophils 86.8 % (42.2-75.2); Absolute Immature Granulocytes 0.1 10^3/uL (0-0.05); Absolute Lymphocytes 0.9 10^3/uL (1.2-3.4); Absolute Monocytes 0.4 10^3/uL (0.1-0.6); Absolute Neutrophils 9.2 10^3/uL (1.4-6.5); Hemoglobin 12.9 g/dL (12.0-16.0); Mean Corp Hgb Conc. 33.1 g/dL (33.0-37.0); Mean Corpuscular Hgb 30.3 pg (27.0-31.0); Mean Corpuscular Volume 91.5 fL (81.0-99.0); Mean Platelet Volume 9.8 fL (7.4-10.4); Nucleated Red Blood Cells % 0 %; Platelet Count 311 10^3/uL (130-400); Red Blood Cell Count 4.26 10^6/uL (4.20-5.40); Red Cell Dist. Width 13.8 % (11.5-14.5); White Blood Cell Count 10.6 10^3/uL (4.8-10.8)
[2023-10-19 06:54] LABS: Blood Urea Nitrogen 23 mg/dl (7-17); Calcium 9.4 mg/dl (8.4-10.2); Carbon Dioxide 23 mmol/L (22-30); Chloride 106 mmol/L (98-107); Estimated Creatinine Clearance 70 ml/min; Glucose 120 mg/dl (70-99); Potassium 4.5 mmol/L (3.5-5.1); Sodium 135 mmol/L (135-145); eGFR > 60.00
[2023-10-19 07:00] VITALS: BP 155/100
[2023-10-19] MEDS: DUONEB 3 ML INH ×4 (07:43→19:23)
[2023-10-19] MEDS: PULMICORT 0.5 MG INH ×2 (07:43→19:23)
[2023-10-19] MEDS: VITAMIN D3 (cholecalciferol) 125 MCG PO (09:19)
[2023-10-19] MEDS: LEVAQUIN 750 MG PO (09:19)
[2023-10-19] MEDS: RESTASIS 0.05% OPHTHALMIC EMULSION 1 DROPS BOTH EYES ×2 (09:19→20:21)
[2023-10-19] MEDS: MUCINEX 600 MG PO ×2 (09:19→20:22)
[2023-10-19] MEDS: SOLU-MEDROL PF 40 MG IV ×2 (09:19→17:11)
[2023-10-19] MEDS: SENOKOT 17.1999999999999993 MG PO ×2 (09:19→20:21)
--- NOTE | 2023-10-19 10:18 | W.PN.HOSP.TC ---
Today's Communication/Plan
-
cont current treatmen
slow improvement
Assessment / Plan
Assessment / Plan
pt is a 72 year old female
Acute exacerbation of COPD likely due to PNA (She had a prior right posterior lower lobe pneumonia which is followed with a repeat CT in July 2023 and it had cleared)--patient presents with new dry cough, progressive shortness of breath, and
actively bronchospastic---cont slow steroid taper, back on IV solumedrol--assess for home O2, failed, not ready for d/c---added pulmicort--CT scan with worsening PNA--levaquin added by ID, apprec input--possible viral PNA as adenovirus DNA positive
.....
Acute hypoxic respiratory insufficiency--persistently hypoxic--patient's oxygenation was 84% on room air today during home O2 eval--Doubt any new process--echo with elevated pulm pressures
Hyperlipidemia-continue home medication
Full code
Anticipated Discharge: > 48 hours
Subjective/Interval History
-
Date of Service: October 19, 2023
pt down to 13L--she doesn't want to go to IMU (she is scared)
Objective Data
-
Labs:
Laboratory Results
10/19/23
05:23
WBC 10.6
Hgb 12.9
Hct 39.0
Plt Count 311
Sodium 135
Potassium 4.5
Chloride 106
Carbon Dioxide 23
BUN 23 H
Creatinine 0.8
Glucose 120 H
Calcium 9.4
Vital Signs:
max temp for 24 hours
10/18/23
15:00
Temp 98.2 F
Vital Signs
Temp Pulse Resp BP Pulse Ox
97.9 F 73 20 155/100 93
10/19/23 07:00 10/19/23 07:50 10/19/23 07:50 10/19/23 07:00 10/19/23 07:50
I&O
10/18/23 10/19/23 10/20/23
06:59 06:59 06:59
Intake Total 1440 / 1440 960 / 960
Balance 1440 / 1440 960 / 960
Review of Systems
-
All other systems: Reviewed and negative
Physical Exam
-
General: Well Developed, Well Nourished and No Apparent Distress
HEENT: Normocephalic, Atraumatic and Oxygen (13L midflow)
Respiratory: Decreased Breath Sounds
Cardiac: Regular Rhythm and S1/S2; Negative Murmur
GI: Soft, Nontender, Nondistended and Normal Bowel Sounds
Musculoskeletal: No Clubbing, No Cyanosis and No Edema
Skin: Warm
Neuro: Awake
--- NOTE | 2023-10-19 10:28 | CM ---
Per patient's RN, daughter changed her mind; she is NOT able to provide transport to [place]
CM w ill arrange ambulance transport when stable for discharge
Assist of 2 needed
Dementia
[2023-10-19] MEDS: MIRALAX 17 GRAMS PO (11:09)
[2023-10-19] MEDS: COLACE 100 MG PO ×2 (11:09→20:22)
--- NOTE | 2023-10-19 13:00 | W.PN.PUL3 ---
Today's Communication / Plan
-
Continue current care
Abx DC'd per ID as pt is now positive for adenovirus; will consider low-dose azithromycin for anti-inflammatory properties
ID consulted, recs appreciated
Wean solumedrol as she clinically improves
Trend procal
Bronchodilators via nebulizer while in the hospital
Antitussives
Mucolytics
Encourage IS given RML/RLL atelectasis seen on CXR on 10/15/2023
She will need repeat imaging as an outpatient to follow up improvement of RML/RLL atelectasis, and she has multiple pulmonary nodules that need radiographic surveillance.
If pt fails to improve or has worsening SaO2 despite being on midflow, then TRX to IMU and start high flow
Assessment
-
72-year-old female with history of recent COVID infection 05/18/2023, right lower lobe pneumonia identified at [facility] with improvement radiographically, left shoulder surgery April 2023, heartburn, questionable COPD, significant
smoking history who presents with 3 days of increased shortness of breath. Unfortunate patient did not start her maintenance regimen as discussed in the past for obstructive lung disease. Chest x-ray suggest possible right lower lobe process.
Admitted for COPD exacerbation 10/11/2023
Acute hypoxic respiratory insufficiency
86% on room air - now on 15L/min supplemental O2
Adenovirus infection contributing to acute hypoxia
Acute COPD exacerbation
Right lower lobe/RML pneumonia - pt worsening clinically and radiographically on 10/18/2023
Recent right lower lobe pneumonia, improved radiographically July 2023
RML/RLL atelectasis mainly seen on CXR from 10/15/2023
Volume overload with L-sided pleural effusion - she is net (+) >6L since admission with prominent bronchovascular markings on CXR from 10/16; this seemed to resolve as per today's CTA chest
Conditions present prior to admission
Mild interstitial lung disease per CT chest
Few scattered nodules mainly in RUL including two 6mm nodules
Recent left apical nodule mm per left shoulder imaging, February 2023 ([facility])
Mild-moderate centrilobular emphysema per CT imaging
Hx of Covid April 2023
[id number] history of smoking, quit 20 years ago (she does not qualify for LDCT chest imaging for lung cancer screening)
History of latent tuberculosis
Subjective dyspnea, chronic
Plan/recommendations
Prior to 10/16 she was slowly improving --> ever since 10/16 she has worsened with increasing SOB and CXR on 10/16 shows worsening RLL opacity and new left pleural effusion with suspected interstitial edema --> she was Tx with IV lasix x1, but now as of
10/16 has worsening O2 requirements. CTA chest shows worsening RLL pneumonia with postero-medial RLL atelectasis --> I raised her steroids back to IV with solumedrol 40mg q8hr, and I consulted ID as she has worsening PNA despite being on Abx
(currently on rocephin +flagyl s/p doxy from 10/10 - 10/16) --> RV-panel performed and she is (+) for adenovirus. I will wean her steroids tomorrow to 40mg IV q12hr
Previously her main complaint was paroxysms of coughing --> as of 10/15 her cough has improved
She says she 'wishes she took the trelegy that she was offered prior to admission.'
Still not bronchospastic
-
No clear triggers although patient does describe symptoms consistent with allergies
Swallowing evaluation normal
No sick contacts-she does see her small grandchildren frequently.
Chest x-ray 10/15/2023: Showed slightly worsening right lower lobe abnormality. Suspect atelectasis.
Chest XR today (10/16) shows worsening opacification of RLL + L-pleural effusion --> IV flagyl added; given concern for acute fluid overload I ordered lasix 20mg IVP x1, TTE done today showed normal LVEF 60-65% with moderate TR, moderate pHTN and
normal RV sizeFx; trend BNP (477 on 10/17; last BNP was 544 in May 2023)
-
Prior to 10/16, it was difficult to differentiate between chronic changes and acute pneumonia, given symptoms okay to treat for infection.
Continue with empiric antibiotics for community-acquired pneumonia. Ceftriaxone/doxycycline - both started on 10/10 --> as of 10/16 doxy has been completed and IV flagyl was started; s/p levaquin x 2 days. Procal negative x2; ID consulted who checked
RV-panel, found Adenovirus, and ABx now stopped.
-
She had a left shoulder film in February 2023 at [facility] which commented on a 5 mm left upper lobe nodule --> she does have two RUL 6mm nodules that are stable between CT chest imaging on 05/2023 to 07/2023 - this can be followed as an
outpatient.
Continue to wean oxygen-currently on 15 L/min via midflow (Usually does not wear oxygen at home)
Check home O2 evaluation prior to discharge - she is not close to discharge yet given her setback with worsening RLL PNA and now worsening O2 requirements
She may need increase level of care with High flow nasal cannula if she remains SOB or has worsening hypoxia despite being on midflow.
keep SpO2 >88%
Discontinued Decadron 10/15/2023.
Was on prednisone 40 mg but given worsening hypoxia, on 10/17 I raised steroids to solumedrol 40mg IV q8hr and will taper as she clinically improves --> will plan to wean down to 40mg IV q12hr tomorrow
DuoNebs 4 times a day-while in the hospital + pulmicort
Patient was supposed to start outpatient maintenance inhaler with Trelegy, did not do so, recent PFT with normal FEV1, DLCO 61%
Had improved from FEV1 of 67% in the past
Would DC home on Trelegy vs Breztri given she has worsening SOB as of 10/16
Continue symptomatic management for coughing Acapella device
Incentive spirometry
DVT prophylaxis: enoxaparin
GI prophylaxis: pantoprazole
Once ready for discharge, we will arrange for outpatient follow up with our office with Dr. Sanchez.
We will continue to follow.
Total time spent today was 50 minutes for this encounter. Time includes reviewing laboratory test/imaging results, reviewing pertinent medical records, obtaining and reviewing medical history, performing an appropriate exam, ordering medications,
tests and procedures. Time also includes documentation of this encounter, coordinating patient care and communicating with other healthcare professionals. Total time does not include separately billed tests performed on this date of service.
Data:
CTA Chest 10-18-2023:
Moderate consolidation in the posterior right lung base, as well has patchy airspace opacity in the right lower lobe, consistent with pneumonia. Minor atelectasis versus pneumonia in the left lower lobe.
Moderate emphysematous lung changes.
Focal irregular opacity/scarring in the posterior right upper lobe is stable.
CXR 10-17-2023:
Small right pleural effusion. Stable.
Tiny left pleural effusion. New
Progressed airspace disease in right lower lung field concerning for pneumonia. Mild.
LE Venous Duplex 10-19-2023: No evidence of deep venous thrombosis the lower extremities bilaterally.
Subjective Data
-
Date of Service:
Date of Service: October 19, 2023
Chief Complaint: Pulmonary Follow Up (Acute exacerbation COPD/pneumonia)
Subjective:
Patient seen this morning. She is currently on 13 L/min via mid flow. Still has shortness of breath with exertion. Respiratory viral panel shows she is positive for adenovirus. Patient denies chest pain, headache, abdominal pain, fevers or
chills.
Review of Systems
General: Other (Negative unless mentioned above)
Objective Data
Data Reviewed
Vital Signs / I&O / Oxygen:
Vital Signs
Temp Pulse Resp BP Pulse Ox
97.8 F 111 24 139/77 94
10/19/23 15:00 10/19/23 15:26 10/19/23 15:26 10/19/23 15:00 10/19/23 15:26
Intake and Output
10/18/23 10/19/23 10/20/23
06:59 06:59 06:59
Intake Total 1440 / 1440 960 / 960
Balance 1440 / 1440 960 / 960
SaO2 94
Nasal Cannula flow liters per 13
minute
Physical Exam
General: Respiratory Distress (negative) and Comfortable
HEENT: Normocephalic, Anicteric and Other (Large neck)
Cardiovascular: S1-S2, Murmur (n), Rub (n) and Peripheral Edema (n)
Respiratory: Wheeze (None), Crackles (n), Rhonchi (n), Non-Labored Respirations and Other (Reduced BS overall, and coarse breath sounds heard in the bases bilaterally)
GI: Soft, Non Distended and Non Tender
Neurology: Awake, Alert and Tremors (negative)
Skin: Warm, Dry, Cyanosis (n), Jaundice (n) and Rash (n)
Labs/Micro/Reports
Lab Data
10/19/23 05:23
10/19/23 05:23
Microbiology
10/18/23 16:45 Nasalpharynx Influenza Type A (PCR) - Final
Not Detected
10/18/23 16:45 Nasalpharynx Influenza Type A (H1) (PCR) - Final
Not Detected
10/18/23 16:45 Nasalpharynx Influenza Type A (H3) (PCR) - Final
Not Detected
10/18/23 16:45 Nasalpharynx Influenza Type B (PCR) - Final
Not Detected
10/18/23 16:45 Nasalpharynx Resp Syncytial Virus Type A (PCR) - Final
Not Detected
10/18/23 16:45 Nasalpharynx Resp Syncytial Virus Type B (PCR) - Final
Not Detected
10/18/23 16:45 Nasalpharynx Adenovirus DNA (PCR) - Final
DETECTED
10/18/23 16:45 Nasalpharynx Human Metapneumovirus (PCR) - Final
Not Detected
10/18/23 16:45 Nasalpharynx Parainfluenza Virus Type 1 (PCR) - Final
Not Detected
10/18/23 16:45 Nasalpharynx Parainfluenza Virus Type 2 (PCR) - Final
Not Detected
10/18/23 16:45 Nasalpharynx Parainfluenza Virus Type 3 (PCR) - Final
Not Detected
10/18/23 16:45 Nasalpharynx Parainfluenza Virus Type 4 - Final
Not Detected
10/18/23 16:45 Nasalpharynx Rhinovirus (PCR) - Final
Not Detected
--- NOTE | 2023-10-19 13:00 | W.PN.ID1 ---
Date of Service
Date of Service: October 19, 2023
Today's Communication
- up to 30% of pneumonia is due to viral causes prior to the covid epidemic
- adenovirus noted - care is supportive
- negative procalcitonin x2 and clear alternative diagnosis; stopped antibiotics
Assessment / Plan
Adenovirus
Pneumonia due to Adenovirus
COPDe
Pulmonary HTN - new
- adenovirus noted - care is supportive
- negative procalcitonin x2 and clear alternative diagnosis; stopped antibiotics
- droplet and contact precautions
- follow clinically
Chief Complaint
-: Pneumonia and Other (adenovirus)
Subjective / Review of Systems
afebrile
bp stable
remains on 13L - decreased from 15
without leukocytosis
cr stable
'I thought I got worse while I was here, this explains it'
Vital Signs / Physical Exam
Vital Signs
Vital Signs
Temp Pulse Resp BP Pulse Ox
97.9 F 100 19 155/100 90
10/19/23 07:00 10/19/23 11:17 10/19/23 11:17 10/19/23 07:00 10/19/23 11:17
Physical Exam
Constitutional: No Acute Distress, Chronically Ill and Non-toxic
Cardiovascular: Regular Rate and S1/S2; Negative Murmur or Rub
Pulmonary: Symmetric, Wheezes, Coarse (nonproductive cough ongoing) and Non Labored; Negative Rales
Gastrointestinal: Soft, Non Tender, Non Distended and Normal Bowel Sounds
Skin: Warm and Dry; Negative Rash or Jaundice
Objective Data
Lab Data
Lab Results
10/19/23 05:23
10/19/23 05:23
Estimated Creat Clear 70 ml/min 10/19/23 05:23
Total Bilirubin 0.5 mg/dl (0.2-1.3) 10/11/23 05:55
AST 38 U/L (14-36) H 10/11/23 05:55
ALT 26 U/L (0-35) 10/11/23 05:55
Alkaline Phosphatase 81 U/L (38-126) 10/11/23 05:55
Most recent labs reviewed.
Micro Results:
10/18/23 16:45 Influenza Type A (PCR) - Final
Nasalpharynx Not Detected
Influenza Type A (H1) (PCR) - Final
Not Detected
Influenza Type A (H3) (PCR) - Final
Not Detected
Influenza Type B (PCR) - Final
Not Detected
Resp Syncytial Virus Type A (PCR) - Final
Not Detected
Resp Syncytial Virus Type B (PCR) - Final
Not Detected
Adenovirus DNA (PCR) - Final
DETECTED
Human Metapneumovirus (PCR) - Final
Not Detected
Parainfluenza Virus Type 1 (PCR) - Final
Not Detected
Parainfluenza Virus Type 2 (PCR) - Final
Not Detected
Parainfluenza Virus Type 3 (PCR) - Final
Not Detected
Parainfluenza Virus Type 4 - Final
Not Detected
Rhinovirus (PCR) - Final
Not Detected
10/11/23 06:30 Influenza Types A & B (ROSY) - Final
Nasal Swab Negative for Influenza A & B, NAAT
Negative results must be combined with clinical observations
and patient history.
Nucleic Acid Amplification test (NAAT)performed on the
[employer] platform.
--- NOTE | 2023-10-19 13:04 | PN.CDI ---
CDI
- -
CDI:
Physician Documentation Request
Admit Date: 10/11/23 10:49
Dear Doctor Dwight,
Please review the following and provide your response in the progress notes.
Clinical Indicators:
10/10 Admitted for COPD exacerbation
PN, 10/17
#IV steroids
#Midflow O2
#Acute hypoxic respiratory insufficiency--
#...persistently hypoxic--patient's oxygenation
#...was 84% on room air today during home O2 eval.
#Now on 5 L--
Pulmonary PN, 10/17
#Acute hypoxic respiratory insufficiency
#...86% on room air - now on 15L/min supplemental O2
PN, 10/18
#Acute hypoxic respiratory insufficiency--persistently hypoxic--
#pt down to 13L--she doesn't want to go to IMU (she is scared)
Please clarify which of the following accurately represents the patient's respiratory status:
Acute respiratory failure
Acute hypoxic respiratory insufficiency
Hypoxia
Other(please specify)
Additional information for Respiratory Failure:
Recognized criteria for Respiratory Failure (Source: [facility] Hospitalist Apr 2013)
Symptoms Please indicate type if known
1. Tachypnea, SOB, dyspnea Hypoxic
2. Use of accessory muscles Hypercapnic
3. Pallor or cyanosis Hypoxic and Hypercapnic
4. Anxiety or restlessness Unable to determine
5. Unable to speak in full sentences
Supplemental O2 of > 40% (5LPM) Intubation is not required
Use of terms such as suspected, likely, concern for, or probable (associated with a specific diagnosis that is being evaluated, monitored, or treated as if it exists) are acceptable and can be coded in the inpatient setting, when documented at the
time of discharge.
Thank you,
Jenni Fuentes RN BSN CCDS
CDI Specialist
please contact via tiger text
Please use your independent medical judgment in providing your response.
[2023-10-19 15:00] VITALS: BP 139/77
--- NOTE | 2023-10-19 15:08 | CM ---
Per Attending, patient is not stable for DC today
O2 via Midflow NC 15 Liter
Plan: discharge >48 hours; monitor for DC needs
--- NOTE | 2023-10-19 15:11 | PTCARENOTE ---
Notified the provider the patient satting 85% on 13 LPM midflow, turned back up to 15 LPM midflow as previous and the patient still satting 87%. Awaiting orders.
[2023-10-19] MEDS: CRESTOR 5 MG PO (17:12)
[2023-10-19] MEDS: LOVENOX 40 MG SC (17:12)
[2023-10-19 23:05] VITALS: BP 144/80
[2023-10-20] MEDS: SOLU-MEDROL PF 40 MG IV ×3 (00:05→15:30)
[2023-10-20] MEDS: MELATONIN 10 MG PO (00:10)
[2023-10-20 07:00] VITALS: BP 145/94
[2023-10-20] MEDS: PULMICORT 0.5 MG INH ×2 (07:56→20:18)
[2023-10-20] MEDS: DUONEB 3 ML INH ×4 (07:56→20:18)
[2023-10-20] MEDS: SENOKOT 17.1999999999999993 MG PO ×2 (09:03→19:18)
[2023-10-20] MEDS: RESTASIS 0.05% OPHTHALMIC EMULSION 1 DROPS BOTH EYES ×2 (09:03→19:18)
[2023-10-20] MEDS: MUCINEX 600 MG PO ×2 (09:03→19:18)
[2023-10-20] MEDS: MIRALAX 17 GRAMS PO (09:03)
[2023-10-20] MEDS: VITAMIN D3 (cholecalciferol) 125 MCG PO (09:03)
[2023-10-20] MEDS: COLACE 100 MG PO ×3 (09:03→19:18)
[2023-10-20] MEDS: TYLENOL 1000 MG PO ×2 (09:04→17:43)
--- NOTE | 2023-10-20 10:35 | CM ---
Chart reviewed and patient plans on returning to home with [facility] and home oxygen from [facility] and Nebulizer, initial referral sent to [facility] however they will need script for home oxygen and testing along with nebulizer
script.
Plan; Home with [facility], needs testing for home oxygen and needs Nebulizer at discharge [facility] have been contacted.
--- NOTE | 2023-10-20 13:28 | W.PN.PUL3 ---
Today's Communication / Plan
-
Continue current care
Abx DC'd per ID as pt is now positive for adenovirus; will consider low-dose azithromycin for anti-inflammatory properties
ID consulted, recs appreciated
Wean solumedrol as she clinically improves
Trend procal
Bronchodilators via nebulizer while in the hospital
Antitussives
Mucolytics
Encourage IS given RML/RLL atelectasis seen on CXR on 10/15/2023
She will need repeat imaging as an outpatient to follow up improvement of RML/RLL atelectasis, and she has multiple pulmonary nodules that need radiographic surveillance.
If pt fails to improve or has worsening SaO2 despite being on midflow, then TRX to IMU and start high flow
Assessment
-
72-year-old female with history of recent COVID infection 05/18/2023, right lower lobe pneumonia identified at [facility] with improvement radiographically, left shoulder surgery April 2023, heartburn, questionable COPD, significant
smoking history who presents with 3 days of increased shortness of breath. Unfortunate patient did not start her maintenance regimen as discussed in the past for obstructive lung disease. Chest x-ray suggest possible right lower lobe process.
Admitted for COPD exacerbation 10/11/2023
Acute hypoxic respiratory insufficiency
86% on room air - now on 9L/min supplemental O2
Adenovirus infection contributing to acute hypoxia
Acute COPD exacerbation
Right lower lobe/RML pneumonia - pt worsening clinically and radiographically on 10/18/2023
Recent right lower lobe pneumonia, improved radiographically July 2023
RML/RLL atelectasis mainly seen on CXR from 10/15/2023
Volume overload with L-sided pleural effusion - she is net (+) >6L since admission with prominent bronchovascular markings on CXR from 10/16; this seemed to resolve as per today's CTA chest
Conditions present prior to admission
Mild interstitial lung disease per CT chest
Few scattered nodules mainly in RUL including two 6mm nodules
Recent left apical nodule mm per left shoulder imaging, February 2023 ([facility])
Mild-moderate centrilobular emphysema per CT imaging
Hx of Covid April 2023
[id number] history of smoking, quit 20 years ago (she does not qualify for LDCT chest imaging for lung cancer screening)
History of latent tuberculosis
Subjective dyspnea, chronic
Plan/recommendations
Prior to 10/16 she was slowly improving --> ever since 10/16 she has worsened with increasing SOB and CXR on 10/16 shows worsening RLL opacity and new left pleural effusion with suspected interstitial edema --> she was Tx with IV lasix x1, but now as of
10/16 has worsening O2 requirements. CTA chest shows worsening RLL pneumonia with postero-medial RLL atelectasis --> I raised her steroids back to IV with solumedrol 40mg q8hr, and I consulted ID as she has worsening PNA despite being on Abx (s/p
rocephin 10/10 - 10/17, doxy from 10/10 - 10/16 + flagyl x 2 days) --> RV-panel performed and she is (+) for adenovirus. I will wean her steroids tonight to 40mg IV q12hr
Previously her main complaint was paroxysms of coughing --> as of 10/15 her cough has improved
She says she 'wishes she took the trelegy that she was offered prior to admission.'
Still not bronchospastic
-
No clear triggers although patient does describe symptoms consistent with allergies
Swallowing evaluation normal
No sick contacts-she does see her small grandchildren frequently.
Chest x-ray 10/15/2023: Showed slightly worsening right lower lobe abnormality. Suspect atelectasis.
Chest XR today (10/16) shows worsening opacification of RLL + L-pleural effusion --> IV flagyl added; given concern for acute fluid overload I ordered lasix 20mg IVP x1, TTE done on 10/17 showed normal LVEF 60-65% with moderate TR, moderate pHTN and
normal RV sizeFx; trend BNP (477 on 10/17; last BNP was 544 in May 2023)
-
Prior to 10/16, it was difficult to differentiate between chronic changes and acute pneumonia, given symptoms okay to treat for infection.
Continue with empiric antibiotics for community-acquired pneumonia. Ceftriaxone/doxycycline - both started on 10/10 --> as of 10/16 doxy has been completed and IV flagyl was started; s/p levaquin x 2 days. Procal negative x2; ID consulted who checked
RV-panel, found Adenovirus, and ABx now stopped.
-
She had a left shoulder film in February 2023 at [facility] which commented on a 5 mm left upper lobe nodule --> she does have two RUL 6mm nodules that are stable between CT chest imaging on 05/2023 to 07/2023 - this can be followed as an
outpatient.
Continue to wean oxygen-currently on 15 L/min via midflow (Usually does not wear oxygen at home)
Check home O2 evaluation prior to discharge - she is not close to discharge yet given her setback with worsening RLL PNA + adenovirus and worsening O2 requirements
She may need increased level of care with High flow nasal cannula if she remains SOB or has worsening hypoxia despite being on midflow.
Keep SpO2 >88%
Discontinued Decadron 10/15/2023.
Was on prednisone 40 mg but given worsening hypoxia, on 10/17 I raised steroids to solumedrol 40mg IV q8hr and will taper as she clinically improves --> will plan to wean down to 40mg IV q12hr tonight
DuoNebs 4 times a day-while in the hospital + pulmicort
Patient was supposed to start outpatient maintenance inhaler with Trelegy, did not do so, recent PFT with normal FEV1, DLCO 61%
Had improved from FEV1 of 67% in the past
Would DC home on Trelegy vs Breztri given she has worsening SOB as of 10/16
Continue symptomatic management for coughing Acapella device
Incentive spirometry
DVT prophylaxis: enoxaparin
GI prophylaxis: N/A
Once ready for discharge, we will arrange for outpatient follow up with our office with Dr. Sanhcez.
We will continue to follow.
Total time spent today was 50 minutes for this encounter. Time includes reviewing laboratory test/imaging results, reviewing pertinent medical records, obtaining and reviewing medical history, performing an appropriate exam, ordering medications,
tests and procedures. Time also includes documentation of this encounter, coordinating patient care and communicating with other healthcare professionals. Total time does not include separately billed tests performed on this date of service.
Data:
CTA Chest 10-18-2023:
Moderate consolidation in the posterior right lung base, as well has patchy airspace opacity in the right lower lobe, consistent with pneumonia. Minor atelectasis versus pneumonia in the left lower lobe.
Moderate emphysematous lung changes.
Focal irregular opacity/scarring in the posterior right upper lobe is stable.
CXR 10-17-2023:
Small right pleural effusion. Stable.
Tiny left pleural effusion. New
Progressed airspace disease in right lower lung field concerning for pneumonia. Mild.
LE Venous Duplex 10-19-2023: No evidence of deep venous thrombosis the lower extremities bilaterally.
Subjective Data
-
Date of Service:
Date of Service: October 20, 2023
Chief Complaint: Pulmonary Follow Up (Acute exacerbation COPD/pneumonia)
Subjective:
Patient seen this morning. Currently on 9 L/min nasal cannula. Still endorses shortness of breath with exertion. She is very upset because she was hoping she would be leaving the hospital by today or tomorrow. Patient denies chest pain,
headache, abdominal pain, fevers or chills.
Review of Systems
General: Other (Negative unless mentioned above)
Objective Data
Data Reviewed
Vital Signs / I&O / Oxygen:
Vital Signs
Temp Pulse Resp BP Pulse Ox
97.6 F 89 14 164/94 91
10/20/23 15:00 10/20/23 15:47 10/20/23 15:47 10/20/23 15:00 10/20/23 15:47
Intake and Output
10/19/23 10/20/23 10/21/23
06:59 06:59 06:59
Intake Total 960 / 960 1290 / 1290 480 / 480
Balance 960 / 960 1290 / 1290 480 / 480
SaO2 91
Nasal Cannula flow liters per 8
minute
Physical Exam
General: Respiratory Distress (negative) and Comfortable
HEENT: Normocephalic, Anicteric and Other (Thick neck)
Cardiovascular: S1-S2, Murmur (n), Rub (n) and Peripheral Edema (n)
Respiratory: Wheeze (None), Crackles (n), Rhonchi (n), Non-Labored Respirations and Other (Reduced BS overall, and coarse breath sounds heard in the bases bilaterally)
GI: Soft, Non Distended and Non Tender
Neurology: Awake, Alert and Tremors (negative)
Skin: Warm, Dry, Cyanosis (n), Jaundice (n) and Rash (n)
Labs/Micro/Reports
Lab Data
10/19/23 05:23
10/19/23 05:23
Microbiology
10/18/23 16:45 Nasalpharynx Influenza Type A (PCR) - Final
Not Detected
10/18/23 16:45 Nasalpharynx Influenza Type A (H1) (PCR) - Final
Not Detected
10/18/23 16:45 Nasalpharynx Influenza Type A (H3) (PCR) - Final
Not Detected
10/18/23 16:45 Nasalpharynx Influenza Type B (PCR) - Final
Not Detected
10/18/23 16:45 Nasalpharynx Resp Syncytial Virus Type A (PCR) - Final
Not Detected
10/18/23 16:45 Nasalpharynx Resp Syncytial Virus Type B (PCR) - Final
Not Detected
10/18/23 16:45 Nasalpharynx Adenovirus DNA (PCR) - Final
DETECTED
10/18/23 16:45 Nasalpharynx Human Metapneumovirus (PCR) - Final
Not Detected
10/18/23 16:45 Nasalpharynx Parainfluenza Virus Type 1 (PCR) - Final
Not Detected
10/18/23 16:45 Nasalpharynx Parainfluenza Virus Type 2 (PCR) - Final
Not Detected
10/18/23 16:45 Nasalpharynx Parainfluenza Virus Type 3 (PCR) - Final
Not Detected
10/18/23 16:45 Nasalpharynx Parainfluenza Virus Type 4 - Final
Not Detected
10/18/23 16:45 Nasalpharynx Rhinovirus (PCR) - Final
Not Detected
--- NOTE | 2023-10-20 13:54 | W.PN.ID1 ---
Date of Service
Date of Service: October 20, 2023
Today's Communication
Supportive care. Observe off antibiotics.
Assessment / Plan
Adenovirus
Pneumonia due to Adenovirus
COPDe
Pulmonary HTN - new
- adenovirus noted - care is supportive
- negative procalcitonin x2 and clear alternative diagnosis; stopped antibiotics
- droplet and contact precautions
- follow clinically
Chief Complaint
-: Pneumonia and Other (adenovirus)
Subjective / Review of Systems
Patient seen and examined. Still with some shortness of breath. Positive cough, but without sputum production.
Vital Signs / Physical Exam
Vital Signs
Vital Signs
Temp Pulse Resp BP Pulse Ox
98.3 F 79 19 145/94 91
10/20/23 07:00 10/20/23 11:41 10/20/23 11:41 10/20/23 07:00 10/20/23 11:41
Physical Exam
Constitutional: No Acute Distress, Comfortable and Non-toxic
Oropharyngeal: Other (Mid flow O2 in place.)
Pulmonary: Other (mildly labored)
Gastrointestinal: Non Distended
Extremities: Negative Edema, Cyanosis or Erythema
Skin: Negative Rash or Jaundice
Neurological: Awake and Alert
Psychological: Calm
Objective Data
Lab Data
Lab Results
10/19/23 05:23
10/19/23 05:23
Estimated Creat Clear 70 ml/min 10/19/23 05:23
Total Bilirubin 0.5 mg/dl (0.2-1.3) 10/11/23 05:55
AST 38 U/L (14-36) H 10/11/23 05:55
ALT 26 U/L (0-35) 10/11/23 05:55
Alkaline Phosphatase 81 U/L (38-126) 10/11/23 05:55
Most recent labs reviewed.
Micro Results:
10/18/23 16:45 Influenza Type A (PCR) - Final
Nasalpharynx Not Detected
Influenza Type A (H1) (PCR) - Final
Not Detected
Influenza Type A (H3) (PCR) - Final
Not Detected
Influenza Type B (PCR) - Final
Not Detected
Resp Syncytial Virus Type A (PCR) - Final
Not Detected
Resp Syncytial Virus Type B (PCR) - Final
Not Detected
Adenovirus DNA (PCR) - Final
DETECTED
Human Metapneumovirus (PCR) - Final
Not Detected
Parainfluenza Virus Type 1 (PCR) - Final
Not Detected
Parainfluenza Virus Type 2 (PCR) - Final
Not Detected
Parainfluenza Virus Type 3 (PCR) - Final
Not Detected
Parainfluenza Virus Type 4 - Final
Not Detected
Rhinovirus (PCR) - Final
Not Detected
10/11/23 06:30 Influenza Types A & B (ROSY) - Final
Nasal Swab Negative for Influenza A & B, NAAT
Negative results must be combined with clinical observations
and patient history.
Nucleic Acid Amplification test (NAAT)performed on the
[employer] platform.
[2023-10-20 14:55] VITALS: BP 164/94
[2023-10-20 15:00] VITALS: BP 164/94
--- NOTE | 2023-10-20 15:40 | W.PN.HOSP.TC ---
Today's Communication/Plan
-
cont to wean O2
supportive care for viral PNA
Assessment / Plan
Assessment / Plan
pt is a 72 year old female
Acute exacerbation of COPD likely due to viral PNA (She had a prior right posterior lower lobe pneumonia which is followed with a repeat CT in July 2023 and it had cleared)--patient presents with new dry cough, progressive shortness of breath,
and actively bronchospastic---cont slow steroid taper, back on IV solumedrol--assess for home O2 failed, not ready for d/c---added pulmicort--CT scan with worsening PNA--levaquin added by ID, apprec input--possible viral PNA as adenovirus DNA
positive .....now off all abx
Acute hypoxic respiratory failure--persistently hypoxic--pt requiring 9L O2, cont to wean--Doubt any new process--echo with elevated pulm pressures
Hyperlipidemia-continue home medication
Full code
Anticipated Discharge: > 48 hours
Subjective/Interval History
-
Date of Service: October 20, 2023
pt frustrated she is still here
down to 9L
Objective Data
-
Vital Signs:
max temp for 24 hours
10/19/23
23:05
Temp 98.9 F
Vital Signs
Temp Pulse Resp BP Pulse Ox
97.6 F 105 20 164/94 92
10/20/23 14:55 10/20/23 14:55 10/20/23 14:55 10/20/23 14:55 10/20/23 14:55
I&O
10/19/23 10/20/23 10/21/23
06:59 06:59 06:59
Intake Total 960 / 960 1290 / 1290
Balance 960 / 960 1290 / 1290
Review of Systems
-
All other systems: Reviewed and negative
Physical Exam
-
General: Well Developed, Well Nourished and No Apparent Distress
HEENT: Normocephalic, Atraumatic and Oxygen
Respiratory: Clear to Auscultation; Negative Wheezes or Rhonchi
Cardiac: Regular Rhythm and S1/S2; Negative Murmur
GI: Soft, Nontender, Nondistended and Normal Bowel Sounds
Musculoskeletal: No Clubbing, No Cyanosis and No Edema
Skin: Warm and Dry
Neuro: Awake and Alert
[2023-10-20] MEDS: LOVENOX 40 MG SC (17:09)
[2023-10-20] MEDS: CRESTOR 5 MG PO (17:09)
[2023-10-20] MEDS: BENADRYL 50 MG PO (21:16)
[2023-10-20 23:05] VITALS: BP 137/75
[2023-10-21] MEDS: SOLU-MEDROL PF 40 MG IV ×2 (03:37→15:04)
[2023-10-21 07:30] VITALS: BP 137/78
[2023-10-21] MEDS: PULMICORT 0.5 MG INH ×2 (07:39→20:59)
[2023-10-21] MEDS: DUONEB 3 ML INH ×4 (07:39→20:59)
[2023-10-21 08:18] LABS: Hematocrit 39.9 % (37.0-47.0); Hemoglobin 12.7 g/dL (12.0-16.0); Mean Corp Hgb Conc. 31.8 g/dL (33.0-37.0); Mean Corpuscular Hgb 29.9 pg (27.0-31.0); Mean Corpuscular Volume 93.9 fL (81.0-99.0); Mean Platelet Volume 10.1 fL (7.4-10.4); Platelet Count 333 10^3/uL (130-400); Red Blood Cell Count 4.25 10^6/uL (4.20-5.40); Red Cell Dist. Width 13.9 % (11.5-14.5); White Blood Cell Count 15.2 10^3/uL (4.8-10.8)
[2023-10-21] MEDS: COLACE 100 MG PO (08:18)
[2023-10-21] MEDS: MIRALAX 17 GRAMS PO (08:18)
[2023-10-21] MEDS: VITAMIN D3 (cholecalciferol) 125 MCG PO (08:18)
[2023-10-21] MEDS: RESTASIS 0.05% OPHTHALMIC EMULSION 1 DROPS BOTH EYES ×2 (08:18→19:27)
[2023-10-21] MEDS: SENOKOT 17.1999999999999993 MG PO (08:18)
[2023-10-21] MEDS: MUCINEX 600 MG PO ×2 (08:18→19:26)
[2023-10-21 08:50] LABS: Blood Urea Nitrogen 21 mg/dl (7-17); Calcium 9.1 mg/dl (8.4-10.2); Carbon Dioxide 24 mmol/L (22-30); Chloride 108 mmol/L (98-107); Estimated Creatinine Clearance 70 ml/min; Glucose 88 mg/dl (70-99); Magnesium 2.2 mg/dl (1.6-2.3); Potassium 4.6 mmol/L (3.5-5.1); Sodium 137 mmol/L (135-145); eGFR > 60.00
--- NOTE | 2023-10-21 10:33 | W.PN.HOSP.TC ---
Today's Communication/Plan
-
cont to wean O2
wean steroids
Assessment / Plan
Assessment / Plan
pt is a 72 year old female
Acute exacerbation of COPD likely due to viral PNA (She had a prior right posterior lower lobe pneumonia which is followed with a repeat CT in July 2023 and it had cleared)--patient presented with new dry cough, progressive shortness of breath,
and actively bronchospastic---cont slow steroid taper, back on IV solumedrol--assess for home O2 failed, not ready for d/c---added pulmicort--CT scan with worsening PNA--levaquin added by ID, apprec input--possible viral PNA as adenovirus DNA
positive .....now off all abx
Acute hypoxic respiratory failure--persistently hypoxic--pt requiring 8L O2, cont to wean--echo with elevated pulm pressures
Hyperlipidemia-continue home medication
Full code
Anticipated Discharge: > 48 hours
Subjective/Interval History
-
Date of Service: October 21, 2023
pt was very SOB on 6L O2--now back to 8--told her to stay on 8 then will walk later
Objective Data
-
Labs:
Laboratory Results
10/21/23
06:03
WBC 15.2 H
Hgb 12.7
Hct 39.9
Plt Count 333
Sodium 137
Potassium 4.6
Chloride 108 H
Carbon Dioxide 24
BUN 21 H
Creatinine 0.8
Glucose 88
Calcium 9.1
Vital Signs:
max temp for 24 hours
10/20/23
07:00
Temp 98.3 F
Vital Signs
Temp Pulse Resp BP Pulse Ox
98.3 F 97 18 137/78 90
10/21/23 07:30 10/21/23 07:48 10/21/23 07:48 10/21/23 07:30 10/21/23 10:07
I&O
10/20/23 10/21/23 10/22/23
06:59 06:59 06:59
Intake Total 1290 / 1290 960 / 960
Balance 1290 / 1290 960 / 960
Review of Systems
-
All other systems: Reviewed and negative
Respiratory: Reports Trouble Breathing (with decreasing O2)
Physical Exam
-
General: Well Developed, Well Nourished and No Apparent Distress
HEENT: Normocephalic, Atraumatic and Oxygen
Respiratory: Clear to Auscultation; Negative Wheezes, Rales, Rhonchi or Crackles
Cardiac: Regular Rhythm and S1/S2; Negative Murmur
GI: Soft, Nontender, Nondistended and Normal Bowel Sounds
Musculoskeletal: No Clubbing, No Cyanosis and No Edema
Neuro: Awake and Alert
Psych: Calm
[2023-10-21 15:05] VITALS: BP 138/86
--- NOTE | 2023-10-21 15:13 | W.PN.PUL3 ---
Today's Communication / Plan
-
Add chest percussion therapy to right base
Decrease steroids
Continue with efforts to wean oxygen
DVT prophylaxis
Encourage ambulation
Assessment
-
72-year-old female with history of recent COVID infection 05/18/2023, right lower lobe pneumonia identified at [facility] with improvement radiographically, left shoulder surgery April 2023, heartburn, questionable COPD, significant
smoking history who presents with 3 days of increased shortness of breath. Unfortunate patient did not start her maintenance regimen as discussed in the past for obstructive lung disease. Chest x-ray suggest possible right lower lobe process.
Admitted for COPD exacerbation 10/11/2023
Acute hypoxic respiratory insufficiency
86% on room air - now on 9L/min supplemental O2
Adenovirus infection contributing to acute hypoxia
Acute COPD exacerbation
Right lower lobe/RML pneumonia - pt worsening clinically and radiographically on 10/18/2023
Recent right lower lobe pneumonia, improved radiographically July 2023
RML/RLL atelectasis mainly seen on CXR from 10/15/2023
Volume overload with L-sided pleural effusion - she is net (+) >6L since admission with prominent bronchovascular markings on CXR from 10/16; this seemed to resolve as per today's CTA chest
Conditions present prior to admission
Mild interstitial lung disease per CT chest
Few scattered nodules mainly in RUL including two 6mm nodules
Recent left apical nodule 5 mm per left shoulder imaging, February 2023 ([facility])
Mild-moderate centrilobular emphysema per CT imaging
Hx of Covid April 2023
[id number] history of smoking, quit 20 years ago (she does not qualify for LDCT chest imaging for lung cancer screening)
History of latent tuberculosis
Subjective dyspnea, chronic
Plan/recommendations
At this time, patient continues to improve
Chest exam clearly has improved since admission
Recently identified adenovirus noted
She initially improved, then worsened with worsened infiltrate per imaging
Steroid raised back up to Solu-Medrol
Moving forward
We will wean steroids
Previously her main complaint was paroxysms of coughing --> as of 10/15 her cough has improved
Still not bronchospastic
Chest exam is clear
No clear triggers although patient does describe symptoms consistent with allergies
Swallowing evaluation normal
No sick contacts-she does see her small grandchildren frequently.
Chest x-ray 10/15/2023: Showed slightly worsening right lower lobe abnormality. Suspect atelectasis.
Doubt heart failure. Lasix therapy was tried
She had a left shoulder film in February 2023 at [facility] which commented on a 5 mm left upper lobe nodule --> she does have two RUL 6mm nodules that are stable between CT chest imaging on 05/2023 to 07/2023 - this can be followed as an
outpatient.
Continue to wean oxygen-currently on 15 L/min via midflow (Usually does not wear oxygen at home), weaned down to 8 L
This morning she was on 6 L during my evaluation, comfortable appearing
Doppler negative for blood clot
CT chest negative for PE
Continue to wean as able
I suspect she is shunting through area of right lower lobe consolidation
Incentive spirometry, Acapella will be important
Will add chest percussion therapy to the right base
Wean steroids
Decreased to 30 mg every 12
DuoNebs 4 times a day-while in the hospital + pulmicort
Would DC home on Trelegy vs Breztri given she has worsening SOB as of 10/16
DVT prophylaxis: enoxaparin
GI prophylaxis: Add while on steroids
Once ready for discharge, we will arrange for outpatient follow up with our office with Dr. Sanchez.
We will continue to follow.
Data:
CTA Chest 10-18-2023:
Moderate consolidation in the posterior right lung base, as well has patchy airspace opacity in the right lower lobe, consistent with pneumonia. Minor atelectasis versus pneumonia in the left lower lobe.
Moderate emphysematous lung changes.
Focal irregular opacity/scarring in the posterior right upper lobe is stable.
CXR 10-17-2023:
Small right pleural effusion. Stable.
Tiny left pleural effusion. New
Progressed airspace disease in right lower lung field concerning for pneumonia. Mild.
LE Venous Duplex 10-19-2023: No evidence of deep venous thrombosis the lower extremities bilaterally.
Subjective Data
-
Date of Service:
Date of Service: October 21, 2023
Chief Complaint: Pulmonary Follow Up (Acute exacerbation COPD/pneumonia)
Subjective:
Patient seen earlier this morning, late entry. Patient continues to have shortness of breath with simple activity. At rest he feels well. Denies hemoptysis, nausea, abdominal pain. Sitting in chair, conversant
Objective Data
Data Reviewed
Vital Signs / I&O / Oxygen:
Vital Signs
Temp Pulse Resp BP Pulse Ox
98.3 F 102 20 137/78 91
10/21/23 07:30 10/21/23 11:16 10/21/23 11:16 10/21/23 07:30 10/21/23 11:16
Intake and Output
10/20/23 10/21/23 10/22/23
06:59 06:59 06:59
Intake Total 1290 / 1290 960 / 960
Balance 1290 / 1290 960 / 960
SaO2 91
Nasal Cannula flow liters per 8
minute
Physical Exam
General: Comfortable
HEENT: Normocephalic, Anicteric and Other (Thick neck)
Cardiovascular: S1-S2, Murmur (n), Rub (n) and Peripheral Edema (n)
Respiratory: Wheeze (None), Crackles (n), Rhonchi (n), Non-Labored Respirations, Stridor (n) and Other (Bronchial)
GI: Soft, Non Distended and Non Tender
Neurology: Awake, Alert and Tremors (negative)
Skin: Cyanosis (n), Jaundice (n) and Rash (n)
Labs/Micro/Reports
Lab Data
10/21/23 06:03
10/21/23 06:03
Microbiology
10/18/23 16:45 Nasalpharynx Influenza Type A (PCR) - Final
Not Detected
10/18/23 16:45 Nasalpharynx Influenza Type A (H1) (PCR) - Final
Not Detected
10/18/23 16:45 Nasalpharynx Influenza Type A (H3) (PCR) - Final
Not Detected
10/18/23 16:45 Nasalpharynx Influenza Type B (PCR) - Final
Not Detected
10/18/23 16:45 Nasalpharynx Resp Syncytial Virus Type A (PCR) - Final
Not Detected
10/18/23 16:45 Nasalpharynx Resp Syncytial Virus Type B (PCR) - Final
Not Detected
10/18/23 16:45 Nasalpharynx Adenovirus DNA (PCR) - Final
DETECTED
10/18/23 16:45 Nasalpharynx Human Metapneumovirus (PCR) - Final
Not Detected
10/18/23 16:45 Nasalpharynx Parainfluenza Virus Type 1 (PCR) - Final
Not Detected
10/18/23 16:45 Nasalpharynx Parainfluenza Virus Type 2 (PCR) - Final
Not Detected
10/18/23 16:45 Nasalpharynx Parainfluenza Virus Type 3 (PCR) - Final
Not Detected
10/18/23 16:45 Nasalpharynx Parainfluenza Virus Type 4 - Final
Not Detected
10/18/23 16:45 Nasalpharynx Rhinovirus (PCR) - Final
Not Detected
--- NOTE | 2023-10-21 16:45 | W.PN.UPDATE ---
Update Note
Progress Note Update
conversation via TT between resp and pulm-- pt back on 15L--sats dropped to 74% with walking to bathroom
decision made to move to IMU
--- NOTE | 2023-10-21 16:59 | RESPNOTE ---
Pt went to bathroom in the middle of breathing tx. Pt had increased WOB/ blue lips post returning from bathroom. Pt using accessory muscles to breathe. Pts sats were 74% on 9L MF. Pt MF liter flow increased to 15L with minimal improvement. Pt was
encouraged to take slow deep breaths, Pts daughter bedside. 15L NRB added to 15L MF pts sats improved to 90%. MD and RN notified.
[2023-10-21] MEDS: XANAX 0.5 MG PO (17:02)
[2023-10-21] MEDS: LOVENOX 40 MG SC (17:02)
[2023-10-21] MEDS: CRESTOR 5 MG PO (17:04)
[2023-10-21 18:25] LABS: HCO3 23.8 mmol/L (21-28); O2 Saturation % 94.8 % (94-98); PCO2 32 mmHg (32-35); PO2 64 mmHg (83-108); pH 7.48 (7.35-7.45)
[2023-10-21 18:38] VITALS: BP 101/73
--- NOTE | 2023-10-21 18:42 | PTCARENOTE ---
Pt had been on 9L midflow all morning, satting 89-91%. Around 1600 pt had an episode of desatting into 70s% with RT when ambulating to bathroom. Lips turned blue. RT placed pt on nonrebreather 15% midflow and she recovered to 92% on nonrebreather.
Pt was put back on 15L midflow and recovered to 90%. Similar episode occurred around 1700 when pt tried ambulating to br again. Pt desatted to 65%, and was put on nonrebreather with 15L midflow. ABG was collected. Pt transferred to IMU.
[2023-10-21] MEDS: SENOKOT PO (19:27)
[2023-10-21] MEDS: COLACE PO (19:27)
[2023-10-21] MEDS: TYLENOL 1000 MG PO (19:29)
[2023-10-21 19:58] LABS: Procalcitonin 0.06 ng/ml (0.0-0.25)
[2023-10-21 20:00] VITALS: BP 98/75
--- NOTE | 2023-10-21 21:46 | PTCARENOTE ---
Pt received at beginning of shift resting in bed on 50L/100% HF POX 87-97%. With minimal activity pt desats quickly into the 80's but recovers in a few minutes. AAOx3. [place] even with hearing aides in. Without hearing aides cannot hear anything. CHAVARRIA,
omnpc, diminished and coarse throughout. Chest PT adm by RT. VSS. Afebrile. SR/ST on CM rate 90's-120's. Purewick placed for comfort. Pt refused bowel regimen stating 'I've had enough bowel movements today.' Requested Tylenol for back discomfort
with good relief. Skin intact. Linda HYDRAULIC SPECIALIST on floor and ordered Procal and PCXR. Sent and xray taken. Rest of assessment as documented. Call sawant within reach. Pt currently sleeping. Will continue to monitor.
[2023-10-21 22:00] VITALS: BP 98/65
[2023-10-22] VITALS (13 sets, daily range): BP systolic 100–145; BP diastolic 56–115
[2023-10-22] MEDS: BENADRYL 50 MG PO ×2 (01:41→20:24)
[2023-10-22] MEDS: TESSALON PERLES 100 MG PO ×2 (02:35→20:17)
[2023-10-22] MEDS: SOLU-MEDROL PF 30 MG IV ×2 (02:35→14:59)
[2023-10-22] MEDS: FLUSH (NSS) 2 FLUSH IV (02:36)
[2023-10-22 04:08] LABS: Hematocrit 36.9 % (37.0-47.0); Hemoglobin 12.6 g/dL (12.0-16.0); Mean Corp Hgb Conc. 34.1 g/dL (33.0-37.0); Mean Corpuscular Hgb 30.6 pg (27.0-31.0); Mean Corpuscular Volume 89.6 fL (81.0-99.0); Mean Platelet Volume 9.3 fL (7.4-10.4); Platelet Count 289 10^3/uL (130-400); Red Blood Cell Count 4.12 10^6/uL (4.20-5.40); Red Cell Dist. Width 13.9 % (11.5-14.5); White Blood Cell Count 13.4 10^3/uL (4.8-10.8)
[2023-10-22 04:26] LABS: ALT (SGPT) 17 U/L (0-35); AST (SGOT) 20 U/L (14-36); Alkaline Phosphatase 67 U/L (38-126); Blood Urea Nitrogen 16 mg/dl (7-17); Calcium 8.8 mg/dl (8.4-10.2); Carbon Dioxide 25 mmol/L (22-30); Chloride 108 mmol/L (98-107); Estimated Creatinine Clearance 70 ml/min; Glucose 99 mg/dl (70-99); Magnesium 2.2 mg/dl (1.6-2.3); Sodium 135 mmol/L (135-145); Total Bilirubin 0.5 mg/dl (0.2-1.3); Total Protein 6.1 g/dl (6.3-8.2); eGFR > 60.00
--- NOTE | 2023-10-22 05:16 | PTCARENOTE ---
Pt unable to void throughout shift. Purewick in place. Pt feels pressure to void but unable. Pt bedrest since POX drops into 70's-80's with ambulating. Bladder scanned for 906. Per protocol pt straight cathed for 975ml joan urine. Pt tolerated
without issue x 1 attempt. New purewick placed per pt request. Currently resting comfortably. Call sawant within reach. Will continue to monitor.
[2023-10-22] MEDS: DUONEB 3 ML INH ×5 (05:35→19:41)
--- NOTE | 2023-10-22 06:40 | W.PN.PUL3 ---
Today's Communication / Plan
-
Chest percussion therapy, add 3% saline
Maintain high flow oxygen for now
Lasix therapy x 1
No change in steroids, nebulized therapy
If hypoxia does not improve, will need repeat Dopplers and CT angiogram
Assessment
-
72-year-old female with history of recent COVID infection 05/18/2023, right lower lobe pneumonia identified at [facility] with improvement radiographically, left shoulder surgery April 2023, heartburn, questionable COPD, significant
smoking history who presents with 3 days of increased shortness of breath. Unfortunate patient did not start her maintenance regimen as discussed in the past for obstructive lung disease. Chest x-ray suggest possible right lower lobe process.
Admitted for COPD exacerbation 10/11/2023
Acute hypoxic respiratory insufficiency
86% on room air - now on 9L/min supplemental O2
Progressive, now on high flow, transferred to IMU 10/20
Adenovirus infection contributing to acute hypoxia
Acute COPD exacerbation
Right lower lobe/RML pneumonia - pt worsening clinically and radiographically on 10/21/2023
Recent right lower lobe pneumonia, improved radiographically July 2023
RML/RLL atelectasis mainly seen on CXR from 10/15/2023
Conditions present prior to admission
Mild interstitial lung disease per CT chest
Few scattered nodules mainly in RUL including two 6mm nodules
Recent left apical nodule 5 mm per left shoulder imaging, February 2023 ([facility])
Mild-moderate centrilobular emphysema per CT imaging
Hx of Covid April 2023
[id number] history of smoking, quit 20 years ago (she does not qualify for LDCT chest imaging for lung cancer screening)
History of latent tuberculosis
Subjective dyspnea, chronic
Plan/recommendations
At this time, patient respiratory status remains tenuous, increased effort requirement, requiring high flow oxygen
Desaturated to 74% with ambulating to the bathroom yesterday, took a while for recovery
Chest x-ray with mild interstitial changes at the base, progressive nodular consolidation right base
CT chest 10/18/2023 with right lower lobe consolidation
Mild crackles and egophony at the right base
Recently identified adenovirus noted
She initially improved, then worsened with worsened infiltrate per imaging
She remains on Solu-Medrol, no wheezing
Moving forward
Difficult situation
She has had Doppler study 10/[address] angiogram 10/17 without evidence of thromboembolic disease
She does have some mild progressive disease at the base
Ramped up chest percussion therapy yesterday p.m. Patient states this makes her breathing better
We will continue with chest percussion twice daily, add 3% saline with sessions
Continue DuoNebs, Pulmicort
Incentive spirometry
If hypoxia continues, will need to repeat Doppler and CT angiogram
Suspect she may be shunting through right lower lobe consolidation
There is no wheezing on exam
Although there may be a mild interstitial process secondary to her infection, would prefer to not go up on steroids at this time
Continue current dosing
Her initial presentation was cough which has since resolved
Other possibilities include volume overload
Check daily weights
Will give 1 dose of Lasix, this has been tried in the past week
She had a left shoulder film in February [address] [facility] which commented on a 5 mm left upper lobe nodule --> she does have two RUL 6mm nodules that are stable between CT chest imaging on 05/2023 to 07/2023 - this can be followed as an
outpatient.
DVT prophylaxis: enoxaparin
GI prophylaxis: Protonix daily
Reviewed at length with patient
Reviewed with primary service 10/20
Data:
CTA Chest 10-18-2023:
Moderate consolidation in the posterior right lung base, as well has patchy airspace opacity in the right lower lobe, consistent with pneumonia. Minor atelectasis versus pneumonia in the left lower lobe.
Moderate emphysematous lung changes.
Focal irregular opacity/scarring in the posterior right upper lobe is stable.
CXR 10-17-2023:
Small right pleural effusion. Stable.
Tiny left pleural effusion. New
Progressed airspace disease in right lower lung field concerning for pneumonia. Mild.
LE Venous Duplex 10-19-2023: No evidence of deep venous thrombosis the lower extremities bilaterally.
Subjective Data
-
Date of Service:
Date of Service: October 22, 2023
Chief Complaint: Pulmonary Follow Up (Acute exacerbation COPD/pneumonia)
Subjective:
Patient with increased oxygen requirement yesterday, desaturated in the 70s with ambulating to the bathroom. Took a while to recover. Now on high flow, transferred to IMU. Patient has dry cough. She denies chest pain, lightheadedness, nausea,
leg pain, leg swelling. She is conversant
Objective Data
Data Reviewed
Vital Signs / I&O / Oxygen:
Vital Signs
Temp Pulse Resp BP Pulse Ox
97.9 F 89 18 134/83 93
10/22/23 03:00 10/22/23 06:15 10/22/23 06:15 10/22/23 06:00 10/22/23 06:18
Intake and Output
10/20/23 10/21/23 10/22/23
06:59 06:59 06:59
Intake Total 1290 / 1290 960 / 960
Output Total 975 / 975
Balance 1290 / 1290 960 / 960 -975 / -975
SaO2 93
Nasal Cannula flow liters per 50
minute
Physical Exam
General: Comfortable
HEENT: Normocephalic, Anicteric and Other (Large neck)
Cardiovascular: S1-S2, Murmur (n), Rub (n) and Peripheral Edema (n)
Respiratory: Wheeze (None), Crackles (Mild right base), Rhonchi (n), Non-Labored Respirations, Stridor (n), Egophony (Right base) and Other (Bronchial)
GI: Soft, Non Distended and Non Tender
Neurology: Awake, Alert and No Motor Deficits (Able to sit up without assistance)
Skin: Cyanosis (n), Jaundice (n) and Rash (n)
Labs/Micro/Reports
Lab Data
10/22/23 03:54
10/22/23 03:54
Laboratory Results
10/21/23
18:18
pH 7.48 H
pCO2 32
pO2 64 L
HCO3 23.8
O2 Delivery Level
[2023-10-22] MEDS: COLACE PO ×2 (07:23→19:07)
[2023-10-22] MEDS: MIRALAX PO (07:23)
[2023-10-22] MEDS: SENOKOT PO ×2 (07:24→19:08)
[2023-10-22] MEDS: PULMICORT 0.5 MG INH ×2 (08:05→19:41)
[2023-10-22] MEDS: SODIUM CHLORIDE 3% FOR INHALATION 1 VIAL INH ×2 (08:06→19:42)
[2023-10-22] MEDS: VITAMIN D3 (cholecalciferol) 125 MCG PO (08:11)
[2023-10-22] MEDS: RESTASIS 0.05% OPHTHALMIC EMULSION 1 DROPS BOTH EYES ×2 (08:11→20:17)
[2023-10-22] MEDS: MUCINEX 600 MG PO ×2 (08:11→20:17)
[2023-10-22] MEDS: LASIX 40 MG IV (08:42)
--- NOTE | 2023-10-22 09:23 | W.PN.ID1 ---
Date of Service
Date of Service: October 22, 2023
Today's Communication
Continue with supportive measures.
Assessment / Plan
Adenovirus
Pneumonia due to Adenovirus
COPDe
Pulmonary HTN - new
- adenovirus noted - care is supportive
- negative procalcitonin x2 and clear alternative diagnosis; stopped antibiotics
- droplet and contact precautions
- follow clinically
Chief Complaint
-: Pneumonia and Other (adenovirus)
Subjective / Review of Systems
Patient seen and examined. Moved to IMU secondary to increased O2 requirements. Now on high flow O2
Vital Signs / Physical Exam
Vital Signs
Vital Signs
Temp Pulse Resp BP Pulse Ox
97.9 F 112 17 134/63 90
10/22/23 03:00 10/22/23 08:43 10/22/23 08:43 10/22/23 08:43 10/22/23 08:49
Physical Exam
Constitutional: No Acute Distress, Comfortable and Non-toxic
Cardiovascular: S1/S2; Negative S3/S4
Pulmonary: Other (Mild-moderate labor)
Gastrointestinal: Soft, Non Tender and Non Distended
Neurological: Awake and Alert
Psychological: Calm
Objective Data
Lab Data
Lab Results
10/22/23 03:54
10/22/23 03:54
Estimated Creat Clear 70 ml/min 10/22/23 03:54
Total Bilirubin 0.5 mg/dl (0.2-1.3) 10/22/23 03:54
AST 20 U/L (14-36) 10/22/23 03:54
ALT 17 U/L (0-35) 10/22/23 03:54
Alkaline Phosphatase 67 U/L (38-126) 10/22/23 03:54
Most recent labs reviewed.
Chest X-Ray: Image Reviewed and Report Reviewed
Micro Results:
10/18/23 16:45 Influenza Type A (PCR) - Final
Nasalpharynx Not Detected
Influenza Type A (H1) (PCR) - Final
Not Detected
Influenza Type A (H3) (PCR) - Final
Not Detected
Influenza Type B (PCR) - Final
Not Detected
Resp Syncytial Virus Type A (PCR) - Final
Not Detected
Resp Syncytial Virus Type B (PCR) - Final
Not Detected
Adenovirus DNA (PCR) - Final
DETECTED
Human Metapneumovirus (PCR) - Final
Not Detected
Parainfluenza Virus Type 1 (PCR) - Final
Not Detected
Parainfluenza Virus Type 2 (PCR) - Final
Not Detected
Parainfluenza Virus Type 3 (PCR) - Final
Not Detected
Parainfluenza Virus Type 4 - Final
Not Detected
Rhinovirus (PCR) - Final
Not Detected
10/11/23 06:30 Influenza Types A & B (ROSY) - Final
Nasal Swab Negative for Influenza A & B, NAAT
Negative results must be combined with clinical observations
and patient history.
Nucleic Acid Amplification test (NAAT)performed on the
[employer] platform.
10/21/23 CXR : Airspace opacity at the periphery of the mid to lower right lung compatible with pneumonia. Bibasilar atelectasis. No large pleural effusion or pneumothorax. The cardiomediastinal silhouette is stable. Left reverse total shoulder
arthroplasty hardware.
--- NOTE | 2023-10-22 09:31 | W.PN.HOSP.TC ---
Today's Communication/Plan
-
chest PT
wean O2 as able
Assessment / Plan
Assessment / Plan
pt is a 72 year old female
Acute exacerbation of COPD likely due to viral PNA (She had a prior right posterior lower lobe pneumonia which is followed with a repeat CT in July 2023 and it had cleared)--patient presented with new dry cough, progressive shortness of breath,
and actively bronchospastic---cont slow steroid taper, back on IV solumedrol---added pulmicort--CT scan with worsening PNA--levaquin added by ID, then stopped --apprec input--possible viral PNA as adenovirus DNA positive .....now off all abx,
repeat procal negative
Acute hypoxic respiratory failure--persistently hypoxic, now on 100% HI AMITA O2, apprec pulm, feel shunt physiology happening--chest PT to Right lung--may need bronch--echo with elevated pulm pressures
Hyperlipidemia-continue home medication
urinary retention--pt st cath for 900ml--follow for now
Full code
Anticipated Discharge: > 48 hours
Subjective/Interval History
-
Date of Service: October 22, 2023
pt moved to IMU for HI AMITA O2 Friday 10/20--pt looks good but sats still borderline on 100% HI AMITA O2
Objective Data
-
Labs:
Laboratory Results
10/22/23
03:54
WBC 13.4 H
Hgb 12.6
Hct 36.9 L
Plt Count 289
Sodium 135
Potassium 4.0
Chloride 108 H
Carbon Dioxide 25
BUN 16
Creatinine 0.8
Glucose 99
Calcium 8.8
Total Bilirubin 0.5
AST 20
ALT 17
Alkaline Phosphatase 67
Vital Signs:
max temp for 24 hours
10/21/23
19:00
Temp 98.2 F
Vital Signs
Temp Pulse Resp BP Pulse Ox
97.9 F 112 17 134/63 90
10/22/23 03:00 10/22/23 08:43 10/22/23 08:43 10/22/23 08:43 10/22/23 08:49
I&O
10/21/23 10/22/23 10/23/23
06:59 06:59 06:59
Intake Total 960 / 960
Output Total 975 / 975
Balance 960 / 960 -975 / -975
Review of Systems
-
All other systems: Reviewed and negative
Physical Exam
-
General: Well Developed, Well Nourished and No Apparent Distress
HEENT: Normocephalic, Atraumatic and Oxygen (HI AMITA O2)
Respiratory: Decreased Breath Sounds (right base)
Cardiac: Regular Rhythm and S1/S2; Negative Murmur
GI: Soft, Nontender, Nondistended and Normal Bowel Sounds
Musculoskeletal: No Clubbing, No Cyanosis and No Edema
Skin: Warm and Dry
Neuro: Awake and Alert
Psych: Calm
[2023-10-22] MEDS: TYLENOL 1000 MG PO ×2 (11:46→17:57)
[2023-10-22] MEDS: LOVENOX 40 MG SC (17:42)
[2023-10-22] MEDS: CRESTOR 5 MG PO (17:42)
--- NOTE | 2023-10-22 17:52 | PTCARENOTE ---
Pt remains max on HF throughout the shift. Desaturates with movement. Pt was able to void today without issue. HR tachy. O2 sat 88-94%. Pt very emotional, upset, frustrated about not getting better. Emotional issues worse after steroids. Offered PO
Xanax but pt refuses. Offered emotional support. Family arrived at bedside and also now attempting to soothe patient.
[2023-10-22] MEDS: XANAX 0.5 MG PO (17:58)
[2023-10-23] VITALS (19 sets, daily range): BP systolic 115–147; BP diastolic 62–94; PULSE 111; O2SAT 90; BMI 29.8
[2023-10-23] MEDS: SOLU-MEDROL PF 30 MG IV ×2 (03:27→15:02)
[2023-10-23 03:42] LABS: Hemoglobin 12.7 g/dL (12.0-16.0); Mean Corp Hgb Conc. 33.4 g/dL (33.0-37.0); Mean Corpuscular Hgb 30.6 pg (27.0-31.0); Mean Corpuscular Volume 91.6 fL (81.0-99.0); Mean Platelet Volume 9.3 fL (7.4-10.4); Platelet Count 293 10^3/uL (130-400); Red Blood Cell Count 4.15 10^6/uL (4.20-5.40); Red Cell Dist. Width 13.8 % (11.5-14.5); White Blood Cell Count 13.9 10^3/uL (4.8-10.8)
[2023-10-23 04:07] LABS: Blood Urea Nitrogen 17 mg/dl (7-17); Carbon Dioxide 24 mmol/L (22-30); Chloride 106 mmol/L (98-107); Estimated Creatinine Clearance 70 ml/min; Glucose 108 mg/dl (70-99); Magnesium 2.3 mg/dl (1.6-2.3); Potassium 4.2 mmol/L (3.5-5.1); Sodium 138 mmol/L (135-145); eGFR > 60.00
[2023-10-23] MEDS: DUONEB 3 ML INH ×4 (07:38→20:50)
[2023-10-23] MEDS: SODIUM CHLORIDE 3% FOR INHALATION 1 VIAL INH ×2 (07:38→20:49)
[2023-10-23] MEDS: PULMICORT 0.5 MG INH ×2 (07:38→20:49)
[2023-10-23] MEDS: MUCINEX 600 MG PO ×2 (08:38→21:41)
[2023-10-23] MEDS: TESSALON PERLES 100 MG PO ×2 (08:39→21:42)
[2023-10-23] MEDS: VITAMIN D3 (cholecalciferol) 125 MCG PO (08:39)
[2023-10-23] MEDS: RESTASIS 0.05% OPHTHALMIC EMULSION 1 DROPS BOTH EYES ×2 (08:39→21:41)
[2023-10-23] MEDS: COLACE PO ×2 (08:39→21:40)
[2023-10-23] MEDS: MIRALAX PO (08:39)
[2023-10-23] MEDS: SENOKOT PO ×2 (08:39→21:40)
[2023-10-23] MEDS: PROTONIX 40 MG PO (08:39)
[2023-10-23] MEDS: OCEAN, SALINE MIST 1 SPRAYS NASAL (08:40)
--- NOTE | 2023-10-23 08:43 | W.PN.HOSP.TC ---
Today's Communication/Plan
-
Continue steroids
Wean oxygen as able
Out of bed to the chair.
Assessment / Plan
Assessment / Plan
pt is a 72 year old female
Acute exacerbation of COPD likely due to viral PNA (She had a prior right posterior lower lobe pneumonia which is followed with a repeat CT in July 2023 and it had cleared)--patient presented with new dry cough, progressive shortness of breath,
and actively bronchospastic---cont slow steroid taper, back on IV solumedrol---added pulmicort--CT scan with worsening PNA--levaquin added by ID, then stopped --apprec input--possible viral PNA as adenovirus DNA positive .....now off all abx,
repeat procal negative
Acute hypoxic respiratory failure--persistently hypoxic, now on HI AMITA O2. High A- a gradient suspect possibly sec to decreased DLCO or intrapulmonary shunting. No evidence of PE. Pulm following.
Hyperlipidemia-continue home medication
Full code
Anticipated Discharge: > 48 hours
Subjective/Interval History
-
Date of Service: October 23, 2023
At Rest she feels okay. Does not feel short of breath at rest. She is currently on high flow oxygen. She does not feel any worse. No pain in the chest or anywhere. Tolerating diet. No nausea. No fever. Not much of cough.
Objective Data
-
Labs:
Laboratory Results
10/23/23
03:35
WBC 13.9 H
Hgb 12.7
Hct 38.0
Plt Count 293
Sodium 138
Potassium 4.2
Chloride 106
Carbon Dioxide 24
BUN 17
Creatinine 0.8
Glucose 108 H
Calcium 9.0
Vital Signs:
Vital Signs
Temp Pulse Resp BP Pulse Ox
98.5 F 79 22 120/84 88
10/23/23 07:39 05/13/24 07:46 10/23/23 07:46 10/23/23 06:00 10/23/23 07:46
I&O
10/22/23 10/23/23 10/24/23
06:59 06:59 06:59
Intake Total 600 / 600
Output Total 975 / 975 600 / 600 800 / 800
Balance -975 / -975 0 / 0 -800 / -800
Review of Systems
-
Constitutional: Denies Fever
EENT: Denies Sore Throat
Cardiac: Denies Chest Pain
Abdomen/GI: Denies Abdominal Pain, Nausea or Vomiting
Genitourinary: Denies Dysuria
Neuro: Denies Dizzy
Physical Exam
-
General: No Apparent Distress
HEENT: Moist Mucous Membranes
Respiratory: Crackles (in right lung base) and Non Labored Respirations; Negative Wheezes or Accessory Resp Muscle Use
Cardiac: Regular Rhythm and S1/S2
GI: Soft
Neuro: AO x 3; Negative Tremors
Psych: Calm; Negative Confused
Data Reviewed
-
Labs: Labs Reviewed by me
--- NOTE | 2023-10-23 09:15 | W.PN.PUL3 ---
Today's Communication / Plan
-
Remains on significant O2 requirements, wean as tolerated
PT eval
Continue nebs, IV steroids, airway clearance
Repeat probnp
Repeat CXR in next 24-48 hours pending progress
Discussed with daughter at bedside extensively
Assessment
-
72-year-old female with history of recent COVID infection 05/18/2023, right lower lobe pneumonia identified at [facility] with improvement radiographically, left shoulder surgery April 2023, heartburn, questionable COPD, significant
smoking history who presents with 3 days of increased shortness of breath. Unfortunate patient did not start her maintenance regimen as discussed in the past for obstructive lung disease. Chest x-ray suggest possible right lower lobe process.
Admitted for COPD exacerbation 10/11/2023
Acute hypoxic respiratory insufficiency
86% on room air - now on 9L/min supplemental O2
Progressive, now on high flow, transferred to U 10/20
Adenovirus infection contributing to acute hypoxia
Acute COPD exacerbation
Right lower lobe/RML pneumonia - pt worsening clinically and radiographically on 10/21/2023
Recent right lower lobe pneumonia, improved radiographically July 2023
RML/RLL atelectasis mainly seen on CXR from 10/15/2023
Conditions present prior to admission
Mild interstitial lung disease per CT chest
Few scattered nodules mainly in RUL including two 6mm nodules
Recent left apical nodule 5 mm per left shoulder imaging, February 2023 ([facility])
Mild-moderate centrilobular emphysema per CT imaging
Hx of Covid April 2023
[id number] history of smoking, quit 20 years ago (she does not qualify for LDCT chest imaging for lung cancer screening)
History of latent tuberculosis
Subjective dyspnea, chronic
Plan/recommendations
At this time, patient respiratory status remains tenuous, increased effort requirement, requiring high flow oxygen
Sats 88-90% while on max settings
Desaturated to 74% with ambulating to the bathroom yesterday, took a while for recovery
Encouraged PT/OT, IS
Wean O2 as tolerated
No history of O2 use at home prior to hospitalization
Imaging reviewed
Chest x-ray with mild interstitial changes at the base, progressive nodular consolidation right base
CT chest 10/18/2023 with right lower lobe consolidation
Repeat CXR today as needed
Recently identified adenovirus noted
She initially improved, then worsened with worsened infiltrate per imaging
She remains on Solu-Medrol, no wheezing
History of COVID illness in May per daughter which started her decline
ILD History
She has had Doppler study 10/[address] angiogram 10/17 without evidence of thromboembolic disease
She does have some mild progressive disease at the base
Ramped up chest percussion therapy yesterday p.m. Patient states this makes her breathing better
Continue airway clearance measures with chest percussion twice daily, add 3% saline with sessions
Continue DuoNebs, Pulmicort
Incentive spirometry
IV steroids
Other possibilities include volume overload
Check daily weights
Will give 1 dose of Lasix, this has been tried in the past week
Repeat proBNP
ECHO reviewed and stable
She had a left shoulder film in February 2023 at [facility] which commented on a 5 mm left upper lobe nodule
She does have two RUL 6mm nodules that are stable between CT chest imaging on 05/2023 to 07/2023
This can be followed as an outpatient
DVT prophylaxis: enoxaparin
GI prophylaxis: Protonix daily
Reviewed at length with patient and daughter
She will likely need SNF at discharge
PT/OT Eval
Diagnostic Data
CTA Chest 10-18-2023: Moderate consolidation in the posterior right lung base, as well has patchy airspace opacity in the right lower lobe, consistent with pneumonia. Minor atelectasis versus pneumonia in the left lower lobe. Moderate emphysematous
lung changes. Focal irregular opacity/scarring in the posterior right upper lobe is stable.
CXR 10/21/23: Airspace opacity at the periphery of the mid to lower right lung compatible with pneumonia. Bibasilar atelectasis. No large pleural effusion or pneumothorax. The cardiomediastinal silhouette is stable. Left reverse total shoulder
arthroplasty hardware.
CXR 10-17-2023: Small right pleural effusion. Stable. Tiny left pleural effusion. New Progressed airspace disease in right lower lung field concerning for pneumonia. Mild.
LE Venous Duplex 10-19-2023: No evidence of deep venous thrombosis the lower extremities bilaterally.
ECHO 10/18/23: Normal left ventricular size, wall thickness and systolic function. LV ejection fraction is 60-65%. Mild mitral regurgitation. Moderate tricuspid regurgitation. Estimated PA pressure 45 mmHg. Compared to the previous report 11/08/2017
tricuspid regurgitation reported as moderate percent of the moderate to severe. PA pressure is higher. Previous estimate 25 to 30 mmHg
Subjective Data
-
Date of Service:
Date of Service: October 23, 2023
Chief Complaint: Pulmonary Follow Up (Acute exacerbation COPD/pneumonia)
Subjective:
remains on HFNC, no new complaints
daughter at bedside with questions about discharge
Objective Data
Data Reviewed
Vital Signs / I&O / Oxygen:
Vital Signs
Temp Pulse Resp BP Pulse Ox
98.5 F 79 22 120/84 88
10/23/23 07:39 10/23/23 07:46 10/23/23 07:46 10/23/23 06:00 10/23/23 07:46
Intake and Output
10/22/23 10/23/23 10/24/23
06:59 06:59 06:59
Intake Total 600 / 600
Output Total 975 / 975 600 / 600 800 / 800
Balance -975 / -975 0 / 0 -800 / -800
SaO2 88
Nasal Cannula flow liters per 50
minute
Physical Exam
General: Comfortable and Good Appetite
HEENT: Normocephalic, Anicteric and Other (Large neck)
Cardiovascular: S1-S2, Murmur (n), Rub (n) and Peripheral Edema (n)
Respiratory: Wheeze (None), Crackles (Mild right base), Rhonchi (n), Non-Labored Respirations, Stridor (n), Egophony (Right base) and Other (overall decreased BS b/l)
GI: Soft, Non Distended and Non Tender
Neurology: Awake, Alert, Oriented, AO x 3 and No Motor Deficits (Able to sit up without assistance)
Skin: Cyanosis (n), Jaundice (n) and Rash (n)
Labs/Micro/Reports
Lab Data
10/23/23 03:35
10/23/23 03:35
--- NOTE | 2023-10-23 09:44 | W.PN.ID1 ---
Date of Service
Date of Service: October 23, 2023
Today's Communication
- negative procalcitonin x3 (most recently 10/20) and clear alternative diagnosis; no indication for antibiotics at this time
- continue with supportive care
- note prior to covid it was estimated that up to 30% of hospitalizations for pneumonia were viral
Assessment / Plan
Adenovirus
Pneumonia due to Adenovirus
COPDe
Pulmonary HTN
- adenovirus noted - care is supportive
- negative procalcitonin x3 (most recently 10/20) and clear alternative diagnosis; no indication for antibiotics at this time
- note prior to covid it was estimated that up to 30% of hospitalizations for pneumonia were viral
- droplet and contact precautions
- follow clinically
Chief Complaint
-: Pneumonia and Other (adenovirus)
Subjective / Review of Systems
remains afebrile
bp stable
remains on high flow, 100L, 50%
tachycardic this AM
leukocytosis noted - on steroids
cr stable
procal neg x3, most recently 10/20
stable symptoms, no nausea
minimal cough
pro bnp remains normal
discouraged
Vital Signs / Physical Exam
Vital Signs
Vital Signs
Temp Pulse Resp BP Pulse Ox
98.5 F 125 21 139/82 81
10/23/23 07:39 10/23/23 08:00 10/23/23 08:00 10/23/23 08:00 10/23/23 08:00
Physical Exam
Constitutional: No Acute Distress and Comfortable
Cardiovascular: Regular Rate and S1/S2; Negative Murmur or Rub
Pulmonary: Clear and Symmetric; Negative Wheezes or Rales
Gastrointestinal: Soft, Non Tender, Non Distended and Normal Bowel Sounds
Skin: Warm and Dry; Negative Rash or Jaundice
Objective Data
Lab Data
Lab Results
10/23/23 03:35
10/23/23 03:35
Estimated Creat Clear 70 ml/min 10/23/23 03:35
Total Bilirubin 0.5 mg/dl (0.2-1.3) 10/22/23 03:54
AST 20 U/L (14-36) 10/22/23 03:54
ALT 17 U/L (0-35) 10/22/23 03:54
Alkaline Phosphatase 67 U/L (38-126) 10/22/23 03:54
Most recent labs reviewed.
Micro Results:
10/18/23 16:45 Influenza Type A (PCR) - Final
Nasalpharynx Not Detected
Influenza Type A (H1) (PCR) - Final
Not Detected
Influenza Type A (H3) (PCR) - Final
Not Detected
Influenza Type B (PCR) - Final
Not Detected
Resp Syncytial Virus Type A (PCR) - Final
Not Detected
Resp Syncytial Virus Type B (PCR) - Final
Not Detected
Adenovirus DNA (PCR) - Final
DETECTED
Human Metapneumovirus (PCR) - Final
Not Detected
Parainfluenza Virus Type 1 (PCR) - Final
Not Detected
Parainfluenza Virus Type 2 (PCR) - Final
Not Detected
Parainfluenza Virus Type 3 (PCR) - Final
Not Detected
Parainfluenza Virus Type 4 - Final
Not Detected
Rhinovirus (PCR) - Final
Not Detected
10/11/23 06:30 Influenza Types A & B (ROSY) - Final
Nasal Swab Negative for Influenza A & B, NAAT
Negative results must be combined with clinical observations
and patient history.
Nucleic Acid Amplification test (NAAT)performed on the
[employer] Spotted platform.
10/21/23 CXR : Airspace opacity at the periphery of the mid to lower right lung compatible with pneumonia. Bibasilar atelectasis. No large pleural effusion or pneumothorax. The cardiomediastinal silhouette is stable. Left reverse total shoulder
arthroplasty hardware.
--- NOTE | 2023-10-23 10:07 | PTCARENOTE ---
Pt rec'd this am from previous RN, still maxed on Hi flow, sat 88%, desats with coughing and eating. Pt AOx3 calm this am, declines Xanax. PRN Tessalon pearls given with morning med pass. Pt refuses bowel reg stating that her stools were loose
yesterday. Daughters at bedside visiting. Will attempt to get oob into chair if sats remain stable. Continuing to monitor.
[2023-10-23 11:58] LABS: NT-proBNP 413 pg/ml
[2023-10-23] MEDS: XANAX 0.5 MG PO ×2 (12:04→18:28)
--- NOTE | 2023-10-23 16:58 | PTCARENOTE ---
Pt remains seated in chair. Sats finally recovered to 88% on max HF and NRB, pt states that she does not feel SOB, plan discussed with Dr. Lorenzo and Dr. Alonzo. Orders for CXR and ABG rec'd.
--- NOTE | 2023-10-23 17:21 | PTCARENOTE ---
Assisted back to bed, sats still 86%. Pt using NRB occasionally with encouragement, 'I'm not a huge fan of the mask.' Pt remains pleasant and cooperative. Ronal dudley.
[2023-10-23] MEDS: LOVENOX 40 MG SC (17:26)
[2023-10-23] MEDS: CRESTOR 5 MG PO (17:26)
[2023-10-23 18:12] LABS: B.E. 0.4 mmol/L; HCO3 22.6 mmol/L (21-28); PCO2 29 mmHg (32-35); PO2 130 mmHg (83-108)
--- NOTE | 2023-10-23 19:31 | PTCARENOTE ---
Addendum entered by Peace Pierson RN 10/23/23 19:39:
Previous note with incorrect time, Order for tx was received at 19:13.
Original Note:
Transfer orders for ICU received at 17:13. Report received from dayshift nurse to this RN. Awaiting bed number in ICU.
--- NOTE | 2023-10-23 20:31 | PTCARENOTE ---
Report given to MANAGER LAND. Pt transferred to ICU.
--- NOTE | 2023-10-23 21:00 | PTCARENOTE ---
Received tsx pt from IMU at around 2100. Received pt on High flow O2 on max settings satting at 84% pulse ox. Pt is tachypneic, CHAVARRIA, and KENNETH. Pt also appears to be anxious. On auscultation pt lungs sound coarse, rhonchorous and diminished TO. Pt is
in ST on tele monitor. Pt is A&Ox3, can make needs known, and can move all 4 extremities.
[2023-10-23] MEDS: BENADRYL 50 MG PO (21:42)
[2023-10-24] VITALS (24 sets, daily range): BP systolic 84–143; BP diastolic 45–100; BMI 29.8
--- NOTE | 2023-10-24 02:00 | PTCARENOTE ---
Pt has an occasional harsh non productive cough that causes her to desat in the lower 80s pulse ox. When sleeping pt's pulse ox increased to 93% and respirations were in the teens.
[2023-10-24] MEDS: SOLU-MEDROL PF 30 MG IV ×2 (03:34→16:33)
[2023-10-24 04:02] LABS: Hematocrit 39.6 % (37.0-47.0); Hemoglobin 13.1 g/dL (12.0-16.0); Mean Corp Hgb Conc. 33.1 g/dL (33.0-37.0); Mean Corpuscular Hgb 30.2 pg (27.0-31.0); Mean Corpuscular Volume 91.2 fL (81.0-99.0); Mean Platelet Volume 9.2 fL (7.4-10.4); Platelet Count 261 10^3/uL (130-400); Red Blood Cell Count 4.34 10^6/uL (4.20-5.40); Red Cell Dist. Width 13.6 % (11.5-14.5); White Blood Cell Count 17.5 10^3/uL (4.8-10.8)
[2023-10-24 04:28] LABS: Blood Urea Nitrogen 17 mg/dl (7-17); Calcium 8.9 mg/dl (8.4-10.2); Carbon Dioxide 23 mmol/L (22-30); Chloride 107 mmol/L (98-107); Estimated Creatinine Clearance 69 ml/min; Glucose 97 mg/dl (70-99); Magnesium 2.3 mg/dl (1.6-2.3); Potassium 4.2 mmol/L (3.5-5.1); Sodium 138 mmol/L (135-145); eGFR > 60.00
[2023-10-24] MEDS: PULMICORT 0.5 MG INH ×2 (07:12→19:50)
[2023-10-24] MEDS: SODIUM CHLORIDE 3% FOR INHALATION 1 VIAL INH ×2 (07:12→19:51)
[2023-10-24] MEDS: DUONEB 3 ML INH ×3 (07:12→15:17)
--- NOTE | 2023-10-24 07:14 | W.PN.INTV ---
Today's Communication / Plan
Recommendations
O2, keep POx >=88%
VEST, HS, alb tid
CS
Observe off atbs
DVT proph
OOB, PT/OT
Assessment
-
Assessment:
Mrs Nicki Womack is a 72-year-old female with history of recent COVID infection 05/18/2023, right lower lobe pneumonia identified at [facility] with improvement radiographically, left shoulder surgery April 2023, heartburn, questionable
COPD, significant smoking history who presents with 3 days of increased shortness of breath. Unfortunate patient did not start her maintenance regimen as discussed in the past for obstructive lung disease. Chest x-ray suggest possible right lower
lobe process. Admitted for COPD exacerbation 10/11/2023
Known to our outpatient pulmonary service, admitted on October 10 from home through emergency department, seen same day well Dr. Sanchez who follows with her in the office. Pulmonary has continue following the patient since admission for acute hypoxemic
respiratory failure, the patient is not on oxygen at home, she was diagnosed with adenovirus respiratory infection and is being actively followed by the ID service with a diagnosis of right lower lobe and right middle pneumonia, right middle lobe
and right lower atelectasis. Reportedly she has a history of mild interstitial lung disease per chest CT along with few scattered nodules in the right upper lobe, known submillimeter sized as well as mild to moderate centrilobular emphysema. No
has had significant history of smoking quitting 20 years ago with a [id number] history of smoking. Also has a history of latent to close infection. Outpatient she is on albuterol inhaler and tiotropium�olodaterol (Stiolto).
Due to persistent hypoxemia requiring high flow nasal cannula, the patient was transferred to the ICU last night on October 22, reportedly BiPAP was attempted but she could not tolerate it, the patient continue on high flow nasal cannula. Of note, in
the spite of hypoxemia on pulse oximetry, pO2 on arterial blood gases show hyperoxia on supplemental oxygen via high flow.
Seen at ICU 10-23, she was accompanied by one of her daughters, case was reviewed and discussed in detail with them, also discussed case with Dr. Alonzo from the hospitalist service
Impression.
Acute hypoxic respiratory insufficiency
86% on room air, refractory hypoxemia on O2 NC and HFNC, transferred to IMU 10/20, transferred to ICU on evening 10-22
Multifactorial: adenovirus infection, AECOPD, relatively recent h/o COVID disease, COPD in patient with past h/o heavy smoking, moderate to severe apical emphysema and baseline mild ILD on CT, mild MR, atelectasis
Acute COPD exacerbation
Right lower lobe/RML pneumonia - pt worsening clinically and radiographically on 10/21/2023
Recent right lower lobe pneumonia, improved radiographically July 2023
RML/RLL atelectasis mainly seen on CXR from 10/15/2023
Conditions present prior to admission
Mild interstitial lung disease per CT chest
Few scattered nodules mainly in RUL including two 6mm nodules
Recent left apical nodule 5 mm per left shoulder imaging, February 2023 ([facility])
Mild-moderate centrilobular emphysema per CT imaging
Hx of Covid April 2023
[id number] history of smoking, quit 20 years ago (she does not qualify for LDCT chest imaging for lung cancer screening)
History of latent tuberculosis infection
Subjective dyspnea, chronic
Plan:
Adm DH 10-10
Transferred to IMU 10-20
Transferred to ICU 10-22
Acute hypoxic respiratory insufficiency, not on home O2 as outpatient
86% on room air, refractory hypoxemia on O2 NC and HFNC, transferred to IMU 10/20, transferred to ICU on evening 10-22
Multifactorial: adenovirus infection, AECOPD, relatively recent h/o COVID disease, COPD in patient with past h/o heavy smoking, baseline moderate to severe apical emphysema and mild ILD on CT, progressive atelectasis (compressive [secretions
related] and resorptive [high O2 supplementation related]), mild MR, interim worsening of pulm infiltrates (c/w adenovirus pneumonia)
Continue O2 protocol with HFNC, could not tolerate BPAP
Reassuringly in spite of hypoxemia on sometimes marginal POx signal, PO2 on ABG showed hyperoxia on 10-22
Reassuringly resp sloan patient does not feel she is deterioration but is understandably frustrated with her prolonged admission
Of note, ABG on HFNC showed hypoxemia down to 56, wondering if PO2 on previous ABG was due to presence of air bubble and consequently falsely elevated
Monitor for potential epistaxis, patient aware
D-dimer 10-23: significantly elevated to 6.36 ug/mL FEU (of note, age-adjusted D-dimer calculated at 0.71 ug/mL). Noted BNP negative on 10-17 and
Rechecked SABRA doppler: negative (negative on 10-18)
Chest CTA 10-17 negative for PE
Repeat CTA 10-23: no PE but worsening pulm infiltrates and atelectasis
Continue HFNC, attempt to wean fiO2 as much as possible for POx>=88% given oligosymptomatic re dyspnea and cough
Limited data on use of cidofovir and less data on use of brincidofovir on adenovirus pneumonia
Check Ig panel to rule out hypogammaglobulinemia associated to adenov pn, unclear if IVIG will be of benefit
Chest CT findings not compatible with activation of LTBI
In clinical context doubt methemoglobinemia is an issue
Encouraged PT/OT
IS
Acapella valve
OOB as much as tolerated
Imaging reviewed
Chest x-ray with mild interstitial changes at the base, progressive nodular consolidation right base
CTA chest 10/18/2023 with right lower lobe consolidation, no PE (baseline CT with moderate to severe apical emphysema and mild ILD changes)
Repeat CXR 10-22 and c/w all prior CXRs since adm showed dynamic changes of infiltration af R>L bases
Recently identified adenovirus noted 10-17
She initially improved, then worsened with worsened infiltrate per imaging
She remains on Solu-Medrol, no wheezing
Doubt will require pulse dose steroids
Not candidate for BAL at this juncture given increasing O2 needs, but will proceed if absolutely necessary
History of COVID illness in May per daughter which started her decline
Continue CPT
Was on chest percussion twice daily and 3% saline with sessions bid prior to transfer to ICU
Changed CPT to VEST qid along alb nebs and hypertonic saline nebs 10-23
D/c DNs to avoid dryness of secretions due to ipatropium related anticholinergic side effect (also d/c prn diphenhydramine for same reason)
Continue Pulmicort
No current evidence of fluid overload
Repeat proBNP remains normal 10-22
ECHO 10-17 reviewed and stable c/w October 2017
She had a left shoulder film in February 2023 at [facility] which commented on a 5 mm left upper lobe nodule
She does have two RUL 6mm nodules that are stable between CT chest imaging on 05/2023 to 07/2023
This can be followed as an outpatient
DVT prophylaxis: enoxaparin
GI prophylaxis: Protonix daily
D/w Mrs Womack and two daughters at bedside, all questions answered to satisfaction
D/w MDT
Downgraded to IMU level of care 10-23, pulm will continue to follow once out of ICU
Diagnostic Data:
CTA Chest 10-18-2023: Moderate consolidation in the posterior right lung base, as well has patchy airspace opacity in the right lower lobe, consistent with pneumonia. Minor atelectasis versus pneumonia in the left lower lobe. Moderate emphysematous
lung changes. Focal irregular opacity/scarring in the posterior right upper lobe is stable.
CXR 10/21/23: Airspace opacity at the periphery of the mid to lower right lung compatible with pneumonia. Bibasilar atelectasis. No large pleural effusion or pneumothorax. The cardiomediastinal silhouette is stable. Left reverse total shoulder
arthroplasty hardware.
CXR 10-17-2023: Small right pleural effusion. Stable. Tiny left pleural effusion. New Progressed airspace disease in right lower lung field concerning for pneumonia. Mild.
LE Venous Duplex 10-19-2023: No evidence of deep venous thrombosis the lower extremities bilaterally.
ECHO 10/18/23: Normal left ventricular size, wall thickness and systolic function. LV ejection fraction is 60-65%. Mild mitral regurgitation. Moderate tricuspid regurgitation. Estimated PA pressure 45 mmHg. Compared to the previous report 11/08/2017
tricuspid regurgitation reported as moderate percent of the moderate to severe. PA pressure is higher. Previous estimate 25 to 30 mmHg
Subjective Dataa
Subjective Data
Date of Service:
Date of Service: October 24, 2023
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
Subjective:
Known to our outpatient pulmonary service, admitted on October 10 from home through emergency department, seen same day well Dr. Sanchez who follows with her in the office. Pulmonary has continue following the patient since admission for acute hypoxemic
respiratory failure, the patient is not on oxygen at home, she was diagnosed with adenovirus respiratory infection and is being actively followed by the ID service with a diagnosis of right lower lobe and right middle pneumonia, right middle lobe
and right lower atelectasis. Reportedly she has a history of mild interstitial lung disease per chest CT along with few scattered nodules in the right upper lobe, known submillimeter sized as well as mild to moderate centrilobular emphysema. No
has had significant history of smoking quitting 20 years ago with a [id number] history of smoking. Also has a history of latent to close infection. Outpatient she is on albuterol inhaler and tiotropium�olodaterol (Stiolto).
Due to persistent hypoxemia requiring high flow nasal cannula, the patient was transferred to the ICU last night on October 22, reportedly BiPAP was attempted but she could not tolerate it, the patient continue on high flow nasal cannula. Of note, in
the spite of hypoxemia on pulse oximetry, pO2 on arterial blood gases show hyperoxia on supplemental oxygen via high flow
Seen today at the ICU, she was accompanied by one of her daughters, case was reviewed and discussed in detail with them, also discussed case with Dr. Alonzo from the hospitalist service
Review of Systems
General: Fever (n), Sweats (n), Chills and Satisfactory Appetite
HEENT: Thrush and Other (mild sore throat)
Cardiopulmonary: Dyspnea, Dyspnea on Exertion, Cough, Sputum Production (n), Wheezing, Chest Pain (n), Edema, Lower Extremity Pain and Hemoptysis (n)
GI: Abdominal Pain (n), Nausea (n) and Vomiting
Neuro: Weakness (n)
Genitourinary: Hematuria (n)
Objective Data
Data Reviewed
Vital Signs / I&O / Oxygen:
Vital Signs
Temp Pulse Resp BP Pulse Ox
98.1 F 89 13 141/82 91
10/24/23 03:39 10/24/23 04:00 10/24/23 04:00 10/24/23 04:00 10/24/23 04:17
Intake and Output
10/23/23 10/24/23 10/25/23
06:59 06:59 06:59
Intake Total 600 / 600 360 / 360
Output Total 600 / 600 1050 / 1050
Balance 0 / 0 -690 / -690
SaO2 91
Nasal Cannula flow liters per 50
minute
Physical Exam
General: Respiratory Distress (mild on HFNC)
HEENT: Normocephalic, Moist Mucous Membranes, Thrush and Other (full dentures)
Cardiovascular: Regular Rhythm, Murmur (n), Rub, JVD (n), Peripheral Edema (n) and Calf Tenderness (n)
Respiratory: Wheeze, Rhonchi, Accessory Resp Muscle Use (trace) and Stridor (n)
GI: Soft, Non Distended and Non Tender
Neurology: Awake, AO x 3 and No Motor Deficits
Skin: Warm
Labs/Micro/Reports
Lab Data
10/24/23 03:46
10/24/23 03:46
Laboratory Results
10/23/23
18:02
pH 7.50 H
pCO2 29 L
pO2 130 H
HCO3 22.6
O2 Delivery Level
[2023-10-24] MEDS: MIRALAX 17 GRAMS PO (07:51)
[2023-10-24] MEDS: VITAMIN D3 (cholecalciferol) 125 MCG PO (07:52)
[2023-10-24] MEDS: RESTASIS 0.05% OPHTHALMIC EMULSION 1 DROPS BOTH EYES ×2 (07:52→19:56)
[2023-10-24] MEDS: MUCINEX 600 MG PO ×2 (07:52→19:56)
[2023-10-24] MEDS: PROTONIX 40 MG PO (07:52)
[2023-10-24] MEDS: SENOKOT PO ×2 (07:53→19:56)
[2023-10-24] MEDS: COLACE 100 MG PO (07:53)
--- NOTE | 2023-10-24 08:37 | W.PN.HOSP.TC ---
Today's Communication/Plan
-
US of legs
CT chest PE study
CW steroids per pulm
Assessment / Plan
Assessment / Plan
pt is a 72 year old female
Acute exacerbation of COPD likely due to viral PNA (She had a prior right posterior lower lobe pneumonia which is followed with a repeat CT in July 2023 and it had cleared)--patient presented with new dry cough, progressive shortness of breath,
and actively bronchospastic---cont slow steroid taper, back on IV solumedrol---added pulmicort--CT scan with worsening PNA--levaquin added by ID, then stopped --apprec input--possible viral PNA as adenovirus DNA positive .....now off all abx,
repeat procal negative
Acute hypoxic respiratory failure--persistently hypoxic, now on HI AMITA O2. High A- a gradient suspect possibly sec to decreased DLCO or intrapulmonary shunting. No evidence of PE. Pulm following.
With persistent hypoxia , no complications of pneumonia on the chest x-ray report, no hypercapnia with still pursue first thromboembolic disease with repeat CT chest and ultrasound of the legs. Her oxygenation got worse since admission and the
initial CT was done early in the course of admission.
Hyperlipidemia-continue home medication
Full code
Discussed with agricultural real estate agent
Discussed with RN
Discussed with family.
Discussed with primary industrial aerial installer Dr. Galan-he is going to provide me with information on her underlying lung capacity including DLCO
Anticipated Discharge: > 48 hours
Subjective/Interval History
-
Date of Service: October 24, 2023
Code last night to ICU because of need of 100% FiO2 on high flow nasal cannula plus nonrebreather.
Daughter at bedside says she was sleeping and her oxygen went up to 95% apparently.
Patient feels a okay at rest but with minimal movement she feels short of breath.
No chest pain. No palpitations.
Cough minimal.
Objective Data
-
Labs:
Laboratory Results
10/24/23
03:46
WBC 17.5 H
Hgb 13.1
Hct 39.6
Plt Count 261
Sodium 138
Potassium 4.2
Chloride 107
Carbon Dioxide 23
BUN 17
Creatinine 0.8
Glucose 97
Calcium 8.9
Vital Signs:
Vital Signs
Temp Pulse Resp BP Pulse Ox
98.0 F 107 20 143/74 84
10/24/23 07:43 10/24/23 08:00 10/24/23 08:00 10/24/23 08:00 10/24/23 08:00
I&O
10/23/23 10/24/23 10/25/23
06:59 06:59 06:59
Intake Total 600 / 600 360 / 360
Output Total 600 / 600 1050 / 1050 350 / 350
Balance 0 / 0 -690 / -690 -350 / -350
Review of Systems
-
Constitutional: Denies Fever or Chills
EENT: Denies Sore Throat
Respiratory: Reports Cough and Trouble Breathing
Cardiac: Denies Chest Pain
Abdomen/GI: Denies Abdominal Pain, Nausea or Vomiting
Neuro: Denies Dizzy
Physical Exam
-
General: No Apparent Distress
HEENT: Moist Mucous Membranes
Respiratory: Clear to Auscultation and Non Labored Respirations (At rest); Negative Wheezes or Accessory Resp Muscle Use
Cardiac: Regular Rhythm, S1/S2 and Tachycardic
GI: Soft, Nontender, Nondistended and Normal Bowel Sounds
Neuro: AO x 3
Psych: Calm; Negative Confused
Data Reviewed
-
Labs: Labs Reviewed by me
--- NOTE | 2023-10-24 08:39 | PTCARENOTE ---
Received report at 0700. Pt on High flow O2 on max settings with SpO2 84% pulse ox. Pt RR 14-16, CHAVARRIA. Pt appears to be anxious. On auscultation pt lungs sound coarse rhonchi. Pt is in ST on tele monitor. Pt is A&Ox3, can make needs known, and can
move all 4 extremities. Plan of care discussed.
--- NOTE | 2023-10-24 09:00 | W.PN.ID1 ---
Date of Service
Date of Service: October 24, 2023
Today's Communication
would consider a rapid steroids wean if possible
continue with supportive care
CXR appears progressed in my opinion; agree with reassessment for PE
Isolation is for duration of illness
Assessment / Plan
Adenovirus
Pneumonia due to Adenovirus
COPDe
- COPD changes described as moderate on last CT
Pulmonary HTN
- suspect hypoxemia is in part due to structural lung changes from moderate COPD
- agree with reassessing for PE
- steroids were started inpatient - not on chronic steroids
- would consider a rapid steroid wean if possible
- adenovirus noted - care is supportive
- negative procalcitonin x3 (most recently 10/20) and clear alternative diagnosis; no indication for antibiotics at this time
- note prior to covid it was estimated that up to 30% of hospitalizations for pneumonia were viral
- droplet and contact precautions - isolation for duration of illness, there can be prolonged viral shedding
- follow clinically
Chief Complaint
-: Pneumonia and Other (adenovirus)
Subjective / Review of Systems
afebrile
bp stable
remains on high flow - increased L per min to 60
CXR: stable moderate bibasilar airspace disease yesterday
note previous CT with moderate COPD
'I feel great- Id go shopping if I could breathe'
Vital Signs / Physical Exam
Vital Signs
Vital Signs
Temp Pulse Resp BP Pulse Ox
98.0 F 107 20 143/74 86
10/24/23 07:43 10/24/23 08:00 10/24/23 08:00 10/24/23 08:00 10/24/23 08:00
Physical Exam
Constitutional: No Acute Distress and Acutely Ill
Cardiovascular: Regular Rate and S1/S2; Negative Murmur or Rub
Pulmonary: Clear, Symmetric and Non Labored; Negative Wheezes or Rales
Gastrointestinal: Soft, Non Tender, Non Distended and Normal Bowel Sounds
Skin: Warm and Dry; Negative Rash or Jaundice
Objective Data
Lab Data
Lab Results
10/24/23 03:46
10/24/23 03:46
Estimated Creat Clear 69 ml/min 10/24/23 03:46
Total Bilirubin 0.5 mg/dl (0.2-1.3) 10/22/23 03:54
AST 20 U/L (14-36) 10/22/23 03:54
ALT 17 U/L (0-35) 10/22/23 03:54
Alkaline Phosphatase 67 U/L (38-126) 10/22/23 03:54
Most recent labs reviewed.
Micro Results:
10/18/23 16:45 Influenza Type A (PCR) - Final
Nasalpharynx Not Detected
Influenza Type A (H1) (PCR) - Final
Not Detected
Influenza Type A (H3) (PCR) - Final
Not Detected
Influenza Type B (PCR) - Final
Not Detected
Resp Syncytial Virus Type A (PCR) - Final
Not Detected
Resp Syncytial Virus Type B (PCR) - Final
Not Detected
Adenovirus DNA (PCR) - Final
DETECTED
Human Metapneumovirus (PCR) - Final
Not Detected
Parainfluenza Virus Type 1 (PCR) - Final
Not Detected
Parainfluenza Virus Type 2 (PCR) - Final
Not Detected
Parainfluenza Virus Type 3 (PCR) - Final
Not Detected
Parainfluenza Virus Type 4 - Final
Not Detected
Rhinovirus (PCR) - Final
Not Detected
10/11/23 06:30 Influenza Types A & B (ROSY) - Final
Nasal Swab Negative for Influenza A & B, NAAT
Negative results must be combined with clinical observations
and patient history.
Nucleic Acid Amplification test (NAAT)performed on the
[employer] platform.
10/21/23 CXR : Airspace opacity at the periphery of the mid to lower right lung compatible with pneumonia. Bibasilar atelectasis. No large pleural effusion or pneumothorax. The cardiomediastinal silhouette is stable. Left reverse total shoulder
arthroplasty hardware.
Care Review
Plan reviewed with: Physician (Dr Alonzo)
[2023-10-24] MEDS: MYCOSTATIN ORAL SUSPENSION 5 ML PO ×4 (09:01→21:35)
[2023-10-24 09:39] LABS: B.E. 0.5 mmol/L; HCO3 22.9 mmol/L (21-28); O2 Saturation % 90.3 % (94-98); PCO2 30 mmHg (32-35); pH 7.49 (7.35-7.45)
[2023-10-24 09:43] LABS: PO2 56 mmHg (83-108)
[2023-10-24 10:12] LABS: D-Dimer 6.36 ug/mlFEU (0.00-0.50)
--- NOTE | 2023-10-24 11:49 | PTCARENOTE ---
SpO2 increasing throughout shift. Currently 93% on HF NC 60L 100% FiO2. Pt states less CHAVARRIA and 'Breathing easier.' Family at bedside. Assisted OOB to BSC. VSS and only mild CHAVARRIA reported by pt. SpO2 remained 90-93%. +void, +flatus.
--- NOTE | 2023-10-24 15:23 | CM ---
CM following re: discharge planning.
Discussed in rounds, reviewed pt' chart, met with pt, family at bedside.
Per Rounds meeting, pt requires 55L HFNC, weaning off O2, continue supportive care.
Per CM note, patient lives alone in a 2 story home and is independent with functional ability.
D/C plan: uncertain at this time and will depend on pt's progress. Pt hopes to return back home when medically stable.
CM will follow with discharge plan updates as hospitalization progresses
--- NOTE | 2023-10-24 16:47 | PTCARENOTE ---
BLE U/S neg for PE, CTA neg for PE. Standby assistance to move pt to recliner without issue. CHAVARRIA continues with SpO2 to 82% and RR to 40. Slow recovery noted.
[2023-10-24] MEDS: TYLENOL 1000 MG PO (17:19)
[2023-10-24] MEDS: LOVENOX 40 MG SC (17:20)
[2023-10-24] MEDS: CRESTOR 5 MG PO (17:20)
[2023-10-24] MEDS: VENTOLIN NEBULES 2.5 MG INH (19:51)
[2023-10-24] MEDS: COLACE PO (19:56)
[2023-10-24] MEDS: MELATONIN 10 MG PO (21:35)
[2023-10-25] VITALS (15 sets, daily range): BP systolic 108–149; BP diastolic 59–82; PULSE 106–126; O2SAT 94
[2023-10-25] MEDS: SOLU-MEDROL PF 30 MG IV (03:59)
[2023-10-25] MEDS: TYLENOL 1000 MG PO ×2 (03:59→12:31)
[2023-10-25] MEDS: XANAX 0.5 MG PO ×3 (04:08→20:36)
[2023-10-25] MEDS: VENTOLIN NEBULES 2.5 MG INH ×4 (07:38→19:59)
[2023-10-25] MEDS: PULMICORT 0.5 MG INH ×2 (07:38→19:59)
[2023-10-25] MEDS: SODIUM CHLORIDE 3% FOR INHALATION 1 VIAL INH ×4 (07:39→19:59)
[2023-10-25] MEDS: COLACE PO ×2 (08:36→20:26)
[2023-10-25] MEDS: MIRALAX 17 GRAMS PO (08:37)
[2023-10-25] MEDS: SENOKOT PO (08:37)
[2023-10-25] MEDS: VITAMIN D3 (cholecalciferol) 125 MCG PO (08:38)
[2023-10-25] MEDS: MYCOSTATIN ORAL SUSPENSION 5 ML PO ×4 (08:38→20:32)
[2023-10-25] MEDS: TESSALON PERLES 100 MG PO (08:38)
[2023-10-25] MEDS: MUCINEX 600 MG PO ×2 (08:38→20:31)
[2023-10-25] MEDS: PROTONIX 40 MG PO (08:38)
[2023-10-25] MEDS: RESTASIS 0.05% OPHTHALMIC EMULSION 1 DROPS BOTH EYES ×2 (08:39→20:31)
--- NOTE | 2023-10-25 09:00 | W.PN.ID1 ---
Addendum entered and electronically signed by Chyna Le MD 10/25/23 17:16:
I looked into expanded access and clinical trials for brincidofovir; unfortunately I have heard back from [employer] and the adenovirus trials are full and the drug is out of stock for expanded access. It is not an option at this time.
Addendum entered and electronically signed by Chyna Le MD 10/25/23 14:25:
adenorvirus PCR will be sent to [facility]
Original Note:
Date of Service
Date of Service: October 25, 2023
Today's Communication
- given progression of viral pneumonia would consider a rapid steroid wean if possible
- droplet and contact precautions - isolation for duration of illness, there can be prolonged viral shedding
Assessment / Plan
Pneumonia due to Adenovirus
COPD
- COPD changes described as moderate on last CT
Pulmonary HTN
- suspect hypoxemia is in part due to structural lung changes from moderate COPD
- would consider a rapid steroid wean if possible
- adenovirus noted - care is supportive
- negative procalcitonin x3 (most recently 10/20) and clear alternative diagnosis; no indication for antibiotics at this time
- clinical pharmacy will investigate if she might be a candidate for expanded access to brincidofovir; I have doubts as she is not known to be immunosuppressed beyond the steroids
- droplet and contact precautions - isolation for duration of illness, there can be prolonged viral shedding
- follow clinically
Chief Complaint
-: Pneumonia and Other (adenovirus)
Subjective / Review of Systems
afebrile
bp stable
remain on high flow NC 60L 100%
note elevated D-dimer however CTA neg
progression of leukocytosis
cr 0.[address] progression of pneumonia noted in the RLL
'Im getting discouraged'
Vital Signs / Physical Exam
Vital Signs
Vital Signs
Temp Pulse Resp BP Pulse Ox
97.7 F 95 17 116/66 86
10/25/23 07:29 10/25/23 08:00 10/25/23 08:00 10/25/23 08:00 10/25/23 08:00
Physical Exam
Constitutional: No Acute Distress and Acutely Ill
Cardiovascular: Regular Rate and S1/S2; Negative Murmur or Rub
Pulmonary: Clear and Symmetric; Negative Wheezes or Rales
Gastrointestinal: Soft, Non Tender, Non Distended and Normal Bowel Sounds
Skin: Warm and Dry; Negative Rash or Jaundice
Objective Data
Lab Data
Lab Results
10/24/23 03:46
10/24/23 03:46
Estimated Creat Clear 69 ml/min 10/24/23 03:46
Total Bilirubin 0.5 mg/dl (0.2-1.3) 10/22/23 03:54
AST 20 U/L (14-36) 10/22/23 03:54
ALT 17 U/L (0-35) 10/22/23 03:54
Alkaline Phosphatase 67 U/L (38-126) 10/22/23 03:54
Most recent labs reviewed.
Micro Results:
10/18/23 16:45 Influenza Type A (PCR) - Final
Nasalpharynx Not Detected
Influenza Type A (H1) (PCR) - Final
Not Detected
Influenza Type A (H3) (PCR) - Final
Not Detected
Influenza Type B (PCR) - Final
Not Detected
Resp Syncytial Virus Type A (PCR) - Final
Not Detected
Resp Syncytial Virus Type B (PCR) - Final
Not Detected
Adenovirus DNA (PCR) - Final
DETECTED
Human Metapneumovirus (PCR) - Final
Not Detected
Parainfluenza Virus Type 1 (PCR) - Final
Not Detected
Parainfluenza Virus Type 2 (PCR) - Final
Not Detected
Parainfluenza Virus Type 3 (PCR) - Final
Not Detected
Parainfluenza Virus Type 4 - Final
Not Detected
Rhinovirus (PCR) - Final
Not Detected
10/11/23 06:30 Influenza Types A & B (ROSY) - Final
Nasal Swab Negative for Influenza A & B, NAAT
Negative results must be combined with clinical observations
and patient history.
Nucleic Acid Amplification test (NAAT)performed on the
[employer] platform.
10/21/23 CXR : Airspace opacity at the periphery of the mid to lower right lung compatible with pneumonia. Bibasilar atelectasis. No large pleural effusion or pneumothorax. The cardiomediastinal silhouette is stable. Left reverse total shoulder
arthroplasty hardware.
Care Review
Plan reviewed with: Physician (Dr Johny domínguez text - steroid wean?)
--- NOTE | 2023-10-25 09:10 | PTCARENOTE ---
PT received in bed with family at bedside, AAOX3, appears anxious, EKWOK, BUSH, NSR-ST, + pulses no edema, HiFlow 60L/100%, B/L BS coarse rhonchi with scattered crackles, occasional harsh dry hacking cough, IS pulls 1500, acapela also preformed
correctly at bedside, abdomen soft NT +BS, pure wick in place draining clear yellow urine, right wrist #20 and right AC INT flushed and patent, PT refusing oral care at this time, refusing to get OOB also at this time
--- NOTE | 2023-10-25 09:50 | PN.CDI ---
CDI
- -
CDI:
Physician Documentation Request
Admit Date: 10/11/23 10:49
Dear Doctor Clinton,
Please review the following and provide your response in the progress notes.
Clinical Indicators:
10/10 admitted...Acute exacerbation of chronic obstructive pulmonary disease (COPD), Hypoxia
Laboratory Tests
10/11/23 10/17/23 10/18/23
05:55 05:29 04:58
WBC 7.7 10.5 11.4 H
10/19/23 10/21/23 10/22/23
05:23 06:03 03:54
WBC 10.6 15.2 H 13.4 H
10/23/23 10/24/23
03:35 03:46
WBC 13.9 H 17.5 H
ID, PN, 10/18
#Pneumonia due to Adenovirus
#- adenovirus noted - care is supportive
#- negative procalcitonin x2 and clear alternative diagnosis; stopped antibiotics
#- droplet and contact precautions
Pulmonary, PN, 10/23
#...86% on room air, refractory hypoxemia on O2 NC and HFNC,
#...transferred to IMU 10/20, transferred to ICU on evening 05-13
PN, 10/23
#Acute exacerbation of COPD likely due to viral PNA
#...(She had a prior right posterior lower lobe pneumonia which is followed with a
#...repeat CT in July 2023 and it had cleared)--
#...patient presented with new dry cough, progressive shortness of breath,
#...and actively bronchospastic---cont slow steroid taper, back on IV solumedrol---#added pulmicort--CT scan with worsening PNA
#...--levaquin added by ID, then stopped --apprec input--
#...possible viral PNA as adenovirus DNA positive
#.....now off all abx, repeat procal negative
#Acute hypoxic respiratory failure--persistently hypoxic, now on HI AMITA O2.
Vital Signs
Temp Pulse Resp BP Pulse Ox
98.0 F 107 20 143/74 84
10/24/23 07:43 10/24/23 08:00 10/24/23 08:00 10/24/23 08:00 10/24/23 08:00
Please clarify which of the following most accurately describes the status of the patient's infection:
Viral Severe Sepsis evolved during admission, (please indicate organ failure, etc...)
Localized Infection Only, Without Systemic Illness
- indicate the site/source, such as UTI, pneumonia etc.
Other(please specify)
Sepsis
- Systemic manifestations of infection, with 2 or more SIRS criteria which include:
- Fever >100.4 degrees F or hypothermia < 96.8 degrees F
- Leukocytosis - WBC > 12,000 or leukopenia - WBC < 4,000 or > 10% bands
- Tachycardia > 90 beats per minute
- Tachypnea - RR > 20 breaths per minute or PaCO2 , 32mmHg
Source: Merck Manual 2013
- Indicate the known or suspected underlying infection, such as UTI, pneumonia or cellulitis
Severe Sepsis
- Sepsis with associated acute organ dysfunction, such as renal or respiratory failure
- Documentation should indicate the association between the sepsis and the organ dysfunction
Use of terms such as suspected, likely, concern for, or probable (associated with a specific diagnosis that is being evaluated, monitored, or treated as if it exists) are acceptable and can be coded in the inpatient setting, when documented at the
time of discharge.
Thank you,
Jenni Fuentes RN BSN CCDS
CDI Specialist
please contact via tiger text
Please use your independent medical judgment in providing your response.
--- NOTE | 2023-10-25 10:20 | W.PN.INTV ---
Today's Communication / Plan
Recommendations
O2 for POx>=88%
CS
CPT
BDs
HS nebs
IMU
Assessment
-
Assessment:
Mrs Nicki Womack is a 72-year-old female with history of recent COVID infection 05/18/2023, right lower lobe pneumonia identified at [facility] with improvement radiographically, left shoulder surgery April 2023, heartburn, questionable
COPD, significant smoking history who presents with 3 days of increased shortness of breath. Unfortunate patient did not start her maintenance regimen as discussed in the past for obstructive lung disease. Chest x-ray suggest possible right lower
lobe process. Admitted for COPD exacerbation 10/11/2023
Known to our outpatient pulmonary service, admitted on October 10 from home through emergency department, seen same day well Dr. Sanchez who follows with her in the office. Pulmonary has continue following the patient since admission for acute hypoxemic
respiratory failure, the patient is not on oxygen at home, she was diagnosed with adenovirus respiratory infection and is being actively followed by the ID service with a diagnosis of right lower lobe and right middle pneumonia, right middle lobe
and right lower atelectasis. Reportedly she has a history of mild interstitial lung disease per chest CT along with few scattered nodules in the right upper lobe, known submillimeter sized as well as mild to moderate centrilobular emphysema. No
has had significant history of smoking quitting 20 years ago with a [id number] history of smoking. Also has a history of latent to close infection. Outpatient she is on albuterol inhaler and tiotropium�olodaterol (Stiolto).
Due to persistent hypoxemia requiring high flow nasal cannula, the patient was transferred to the ICU last night on October 22, reportedly BiPAP was attempted but she could not tolerate it, the patient continue on high flow nasal cannula. Of note, in
the spite of hypoxemia on pulse oximetry, pO2 on arterial blood gases show hyperoxia on supplemental oxygen via high flow.
Seen at ICU 10-23, she was accompanied by one of her daughters, case was reviewed and discussed in detail with them, also discussed case with Dr. Alonzo from the hospitalist service
Impression.
Acute hypoxic respiratory insufficiency
86% on room air, refractory hypoxemia on O2 NC and HFNC, transferred to IMU 10/20, transferred to ICU on evening 10-22
Multifactorial: adenovirus infection, AECOPD, relatively recent h/o COVID disease, COPD in patient with past h/o heavy smoking, moderate to severe apical emphysema and baseline mild ILD on CT, mild MR, atelectasis
Acute COPD exacerbation
Right lower lobe/RML pneumonia - pt worsening clinically and radiographically on 10/21/2023
Recent right lower lobe pneumonia, improved radiographically July 2023
RML/RLL atelectasis mainly seen on CXR from 10/15/2023
Conditions present prior to admission
Mild interstitial lung disease per CT chest
Few scattered nodules mainly in RUL including two 6mm nodules
Recent left apical nodule 5 mm per left shoulder imaging, February 2023 ([facility])
Mild-moderate centrilobular emphysema per CT imaging
Hx of Covid April 2023
[id number] history of smoking, quit 20 years ago (she does not qualify for LDCT chest imaging for lung cancer screening)
History of latent tuberculosis infection
Subjective dyspnea, chronic
Plan:
Adm DH 10-10
Transferred to IMU 10-20
Transferred to ICU 10-22
Acute hypoxic respiratory insufficiency, not on home O2 as outpatient
86% on room air, refractory hypoxemia on O2 NC and HFNC, transferred to IMU 10/20, transferred to ICU on evening 10-22
Multifactorial: adenovirus infection, AECOPD, relatively recent h/o COVID disease, COPD in patient with past h/o heavy smoking, baseline moderate to severe apical emphysema and mild ILD on CT, progressive atelectasis (compressive [secretions
related] and resorptive [high O2 supplementation related]), mild MR, interim worsening of pulm infiltrates (c/w adenovirus pneumonia)
Continue O2 protocol with HFNC, could not tolerate BPAP
Reassuringly in spite of hypoxemia on sometimes marginal POx signal, PO2 on ABG showed hyperoxia on 10-22
Reassuringly resp sloan patient does not feel she is deterioration but is understandably frustrated with her prolonged admission
Of note, ABG on HFNC showed hypoxemia down to 56, wondering if PO2 on previous ABG was due to presence of air bubble and consequently falsely elevated
Monitor for potential epistaxis in setting of high O2 dosing, patient aware
D-dimer 10-23: significantly elevated to 6.36 ug/mL FEU (of note, age-adjusted D-dimer calculated at 0.71 ug/mL). Noted BNP negative on 10-17 and
Rechecked SABRA doppler: negative (negative on 10-18)
Chest CTA 10-17 negative for PE
Repeat CTA 10-23: no PE but worsening pulm infiltrates and atelectasis
Continue HFNC, attempt to wean fiO2 as much as possible for POx>=88% given oligosymptomatic re dyspnea and cough
D/w patient and family, will keep POx readings in context of symptoms to avoid excessive/unnecessary adm of O2
Limited data on use of cidofovir and less data on use of brincidofovir on adenovirus pneumonia
Check Ig panel to rule out hypogammaglobulinemia associated to adenov pn, unclear if IVIG will be of benefit
Chest CT findings not compatible with activation of LTBI
In clinical context doubt methemoglobinemia is an issue
ID following closely, exploring possibility of brincidofovir instead of cidofovir due to side effect profile
Encouraged PT/OT
IS
Acapella valve
OOB as much as tolerated
Imaging reviewed
Chest x-ray with mild interstitial changes at the base, progressive nodular consolidation right base
CTA chest 10/18/2023 with right lower lobe consolidation, no PE (baseline CT with moderate to severe apical emphysema and mild ILD changes)
Repeat CXR 10-22 and c/w all prior CXRs since adm showed dynamic changes of infiltration at R>L bases
Recently identified adenovirus noted 10-17
She initially improved, then worsened with worsened infiltrate per imaging
She remains on Solu-Medrol, no wheezing
Doubt will require pulse dose steroids
Weaning CS down to prednisone 40 mg starting 10-25, followed by quick taper to off
Not candidate for BAL at this juncture given increasing O2 needs and consequent risk of procedure, but will proceed if absolutely necessary
History of COVID illness in May per daughter which started her decline
Continue CPT
Was on chest percussion twice daily and 3% saline with sessions bid prior to transfer to ICU
Changed CPT to VEST qid along alb nebs and hypertonic saline nebs 10-23
Strongly advised to use VEST regularly for as long as tolerated duration and intensity of percussion per session to enhance effect of CPT in improving atelectasis
D/c DNs to avoid dryness of secretions due to ipratropium related anticholinergic side effect (also d/c prn diphenhydramine for same reason)
Continue Pulmicort
No current evidence of fluid overload
Repeat proBNP remains normal 10-22
ECHO 10-17 reviewed and stable c/w October 2017
She had a left shoulder film in February 2023 at [facility] which commented on a 5 mm left upper lobe nodule
She does have two RUL 6mm nodules that are stable between CT chest imaging on 05/2023 to 07/2023
This can be followed as an outpatient
Insomnia, on outpatient melatonin
Compounded by acute illness, hospital environment, high dose CS
Weaning down CS
Continue melatonin at 10 mg qhs for now instead of prn
Must time nocturnal dosing at 30-45 min of chosen sleep time and procure dark bedroom environment to facilitate action of melatonin
Will not recommend bzd hypnotics due to side effects and limited inpatient hipnotic options
DVT prophylaxis: enoxaparin
GI prophylaxis: Protonix daily
D/w Mrs Womack and two daughters at bedside, all questions answered to satisfaction
D/w MDT
Downgraded to IMU level of care 10-23, pulm will continue to follow once out of ICU
Diagnostic Data:
CTA Chest 10-18-2023: Moderate consolidation in the posterior right lung base, as well has patchy airspace opacity in the right lower lobe, consistent with pneumonia. Minor atelectasis versus pneumonia in the left lower lobe. Moderate emphysematous
lung changes. Focal irregular opacity/scarring in the posterior right upper lobe is stable.
CXR 10/21/23: Airspace opacity at the periphery of the mid to lower right lung compatible with pneumonia. Bibasilar atelectasis. No large pleural effusion or pneumothorax. The cardiomediastinal silhouette is stable. Left reverse total shoulder
arthroplasty hardware.
CXR 10-17-2023: Small right pleural effusion. Stable. Tiny left pleural effusion. New Progressed airspace disease in right lower lung field concerning for pneumonia. Mild.
LE Venous Duplex 10-19-2023: No evidence of deep venous thrombosis the lower extremities bilaterally.
ECHO 10/18/23: Normal left ventricular size, wall thickness and systolic function. LV ejection fraction is 60-65%. Mild mitral regurgitation. Moderate tricuspid regurgitation. Estimated PA pressure 45 mmHg. Compared to the previous report 11/08/2017
tricuspid regurgitation reported as moderate percent of the moderate to severe. PA pressure is higher. Previous estimate 25 to 30 mmHg
Subjective Dataa
Subjective Data
Date of Service:
Date of Service: October 25, 2023
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
Subjective:
No major events reported overnight
Continues on high flow nasal cannula
Intermittent hypoxemia, however the patient does not report increasing dyspnea or cough
Compliant with incentive spirometry and Acapella valve
Complies to new onset base chest PT
Devoted daughters at bedside every day
Review of Systems
General: Fever (n), Sweats (n), Chills and Satisfactory Appetite
HEENT: Epistaxis (n) and Dysphagia (n)
Cardiopulmonary: Dyspnea, Cough, Sputum Production (trace), Wheezing (n), Chest Pain (n), Edema (n), Lower Extremity Pain and Hemoptysis (n)
GI: Abdominal Pain (n), Nausea (n) and Vomiting (n)
Neuro: Weakness
Genitourinary: Hematuria (n)
Objective Data
Data Reviewed
Vital Signs / I&O / Oxygen:
Vital Signs
Temp Pulse Resp BP Pulse Ox
97.7 F 95 17 116/66 86
10/25/23 07:29 10/25/23 08:00 10/25/23 08:00 10/25/23 08:00 10/25/23 08:00
Intake and Output
10/24/23 10/25/23 10/26/23
06:59 06:59 06:59
Intake Total 360 / 360
Output Total 1050 / 1050 600 / 600
Balance -690 / -690 -600 / -600
SaO2 86
Nasal Cannula flow liters per 55
minute
Physical Exam
General: Respiratory Distress (mild on HFNC)
HEENT: Normocephalic, Moist Mucous Membranes, Thrush and Other (full dentures)
Cardiovascular: Regular Rhythm, Murmur (n), Rub, JVD (n), Peripheral Edema (n) and Calf Tenderness (n)
Respiratory: Wheeze, Rhonchi, Accessory Resp Muscle Use (trace) and Stridor (n)
GI: Soft, Non Distended and Non Tender
Neurology: Awake, AO x 3 and No Motor Deficits
Skin: Warm
Labs/Micro/Reports
Lab Data
10/24/23 03:46
10/24/23 03:46
--- NOTE | 2023-10-25 10:48 | PTCARENOTE ---
Assisted PT OOB to chair, PT is quick to get moving to chair, encouraged PT to relax and slow down to reserve O2 reserves, PT remains OOB, became easily upset and started to cry about her anxiety, and how longs shes been ill, PT feels overwhelmed,
emotional support given
--- NOTE | 2023-10-25 11:57 | W.PN.HOSP.TC ---
Today's Communication/Plan
-
Wean steroids
CW O2 support and wean as able
CW Vest therapies, ICS, OOB to chair
Assessment / Plan
Assessment / Plan
pt is a 72 year old female
Acute exacerbation of COPD likely due to viral PNA (She had a prior right posterior lower lobe pneumonia which is followed with a repeat CT in July 2023 and it had cleared)--patient presented with new dry cough, progressive shortness of breath,
and actively bronchospastic---cont slow steroid taper, back on IV solumedrol---added pulmicort--CT scan with worsening PNA--levaquin added by ID, then stopped --apprec input--possible viral PNA as adenovirus DNA positive .....now off all abx,
repeat procal negative
Acute hypoxic respiratory failure--persistently hypoxic, now on HI AMITA O2. High A- a gradient suspect possibly sec to decreased DLCO or intrapulmonary shunting. No evidence of PE. Pulm following.
With persistent hypoxia , no complications of pneumonia on the chest x-ray report, no hypercapnia with still pursue first thromboembolic disease with repeat CT chest and ultrasound of the legs -both neg for PE/VTE respectively. CW O2 support and
wean as able
Hyperlipidemia-continue home medication
Full code
Discussed with cocoa press operator
Discussed with RN
Discussed with family.
Anticipated Discharge: > 48 hours
Subjective/Interval History
-
Date of Service: October 25, 2023
Still on 100% FiO2 via high flow nasal cannula. Not short of breath at rest. She is seeing some improvement with vest therapy.
No nausea vomiting.
No fever or chills.
Insomnia even at home. She was using combination of melatonin and Benadryl as needed basis.
Objective Data
-
Vital Signs:
Vital Signs
Temp Pulse Resp BP Pulse Ox
97.8 F 101 22 116/66 93
10/25/23 11:03 10/25/23 11:30 10/25/23 11:30 10/25/23 08:00 10/25/23 11:30
I&O
10/24/23 10/25/23 10/26/23
06:59 06:59 06:59
Intake Total 360 / 360
Output Total 1050 / 1050 600 / 600
Balance -690 / -690 -600 / -600
Review of Systems
-
Respiratory: Reports Cough and Trouble Breathing (With minimal exertion)
Cardiac: Denies Chest Pain
Abdomen/GI: Denies Nausea or Vomiting
Neuro: Denies Dizzy
Physical Exam
-
General: No Apparent Distress
HEENT: Moist Mucous Membranes
Respiratory: Non Labored Respirations; Negative Wheezes or Accessory Resp Muscle Use
Cardiac: Regular Rhythm and S1/S2
GI: Soft
Neuro: AO x 3
Data Reviewed
-
CT Scan: Report Reviewed by me (ct chest)
Labs: Labs Reviewed by me
--- NOTE | 2023-10-25 13:12 | PTCARENOTE ---
Assessment remains unchanged, O2 sats remains 88-94%, HiFlow decreased to 50L/100%, PT continues with harsh dry OBJECTS CONSERVATOR cough, remains OOB, denies any complaints or needs at this time, daughter at bedside, call sawant within reach, safe environment provided
--- NOTE | 2023-10-25 13:36 | CM ---
Addendum entered by Beatrice York 10/25/23 13:38:
PT/OT recommendation home with VN vs SNF at this time.
Original Note:
Patient seen at bedside. Patient remains on high lizzy O2, plan is to go home with family supports pending home O2 assessment/needs. CM will continue to follow for discharge planning needs.
Plan; home with VN/ home O2 needs pending functional assessments
[2023-10-25] MEDS: LOVENOX 40 MG SC (17:20)
[2023-10-25] MEDS: CRESTOR 5 MG PO (17:20)
--- NOTE | 2023-10-25 17:40 | PTCARENOTE ---
PT remained OOB in chair without any issues or complaints 8+ hours, assisted x1 to BSC 100 ml clear yellow urine, assisted back to bed, pure wick placed, assessment remains unchanged, HIflow 50L/95% O2 saturation 93%, PT resting comfortably, bed in
lowest position, call sawant in reach, safe environment provided
--- NOTE | 2023-10-25 20:30 | PTCARENOTE ---
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 Purewick in place. POC discussed, call sawant with pt.
[2023-10-25] MEDS: SENOKOT 17.1999999999999993 MG PO (20:31)
[2023-10-25] MEDS: MELATONIN 10 MG PO (20:31)
--- NOTE | 2023-10-25 23:07 | PTCARENOTE ---
pt sat hanging 86-87% while sleeping, appears comfortable, sat to 80% after coughing, gradually back to mid 80s, RT paged to increase 02 on pt HFNC.
[2023-10-26] VITALS (27 sets, daily range): BP systolic 75–131; BP diastolic 40–78; PULSE 103–109; O2SAT 94; BMI 30.5
[2023-10-26 04:26] LABS: Hematocrit 41.7 % (37.0-47.0); Hemoglobin 13.7 g/dL (12.0-16.0); Mean Corp Hgb Conc. 32.9 g/dL (33.0-37.0); Mean Corpuscular Hgb 30.4 pg (27.0-31.0); Mean Corpuscular Volume 92.5 fL (81.0-99.0); Mean Platelet Volume 9.3 fL (7.4-10.4); Platelet Count 157 10^3/uL (130-400); Red Blood Cell Count 4.51 10^6/uL (4.20-5.40); Red Cell Dist. Width 13.7 % (11.5-14.5)
[2023-10-26] MEDS: TYLENOL 1000 MG PO ×2 (04:29→23:05)
[2023-10-26 04:46] LABS: Blood Urea Nitrogen 25 mg/dl (7-17); Calcium 8.8 mg/dl (8.4-10.2); Carbon Dioxide 24 mmol/L (22-30); Chloride 108 mmol/L (98-107); Estimated Creatinine Clearance 62 ml/min; Glucose 101 mg/dl (70-99); Potassium 4.3 mmol/L (3.5-5.1); Sodium 140 mmol/L (135-145); eGFR > 60.00
--- NOTE | 2023-10-26 05:15 | PTCARENOTE ---
pt w/decreased UO in xavi, bladder scan 1265cc, pt assisted to commode to attempt to void on own prior to cath, pt desat as low as 79% when OOB to commode- required NRB in addition to already maxed HFNC, Sat recovered when back to bed/NRB able
to be removed and pt maintaining Sat 90%. 400cc total UO voided by pt, post void bladder scan 882cc, straight cathed for additional 925cc. pt reports feeling more comfortable after cath. resting in bed, call sawant with patient.
[2023-10-26 05:47] LABS: IgA 309 mg/dl (70-400); IgG 954 mg/dl (700-1600); IgM 307 mg/dl (40-230)
--- NOTE | 2023-10-26 07:28 | W.PN.INTV ---
Today's Communication / Plan
Recommendations
O2
CPT
CXR tmw
Pred taper
Assessment
-
Assessment:
Mrs Nicki Womack is a 72-year-old female with history of recent COVID infection 05/18/2023, right lower lobe pneumonia identified at [facility] with improvement radiographically, left shoulder surgery April 2023, heartburn, questionable
COPD, significant smoking history who presents with 3 days of increased shortness of breath. Unfortunate patient did not start her maintenance regimen as discussed in the past for obstructive lung disease. Chest x-ray suggest possible right lower
lobe process. Admitted for COPD exacerbation 10/11/2023
Known to our outpatient pulmonary service, admitted on October 10 from home through emergency department, seen same day well Dr. Sanchez who follows with her in the office. Pulmonary has continue following the patient since admission for acute hypoxemic
respiratory failure, the patient is not on oxygen at home, she was diagnosed with adenovirus respiratory infection and is being actively followed by the ID service with a diagnosis of right lower lobe and right middle pneumonia, right middle lobe
and right lower atelectasis. Reportedly she has a history of mild interstitial lung disease per chest CT along with few scattered nodules in the right upper lobe, known submillimeter sized as well as mild to moderate centrilobular emphysema. No
has had significant history of smoking quitting 20 years ago with a [id number] history of smoking. Also has a history of latent to close infection. Outpatient she is on albuterol inhaler and tiotropium�olodaterol (Stiolto).
Due to persistent hypoxemia requiring high flow nasal cannula, the patient was transferred to the ICU last night on October 22, reportedly BiPAP was attempted but she could not tolerate it, the patient continue on high flow nasal cannula. Of note, in
the spite of hypoxemia on pulse oximetry, pO2 on arterial blood gases show hyperoxia on supplemental oxygen via high flow.
Seen at ICU -14, she was accompanied by one of her daughters, case was reviewed and discussed in detail with them, also discussed case with Dr. Alonzo from the hospitalist service
Impression.
Acute hypoxic respiratory insufficiency
86% on room air, refractory hypoxemia on O2 NC and HFNC, transferred to IMU 10/20, transferred to ICU on evening 10-22
Multifactorial: adenovirus infection, AECOPD, relatively recent h/o COVID disease, COPD in patient with past h/o heavy smoking, moderate to severe apical emphysema and baseline mild ILD on CT, mild MR, atelectasis
Acute COPD exacerbation
Right lower lobe/RML pneumonia - pt worsening clinically and radiographically on 10/21/2023
Recent right lower lobe pneumonia, improved radiographically July 2023
RML/RLL atelectasis mainly seen on CXR from 10/15/2023
Conditions present prior to admission
Mild interstitial lung disease per CT chest
Few scattered nodules mainly in RUL including two 6mm nodules
Recent left apical nodule 5 mm per left shoulder imaging, February 2023 ([facility])
Mild-moderate centrilobular emphysema per CT imaging
Hx of Covid April 2023
[id number]-[id number] history of smoking, quit 20 years ago (she does not qualify for LDCT chest imaging for lung cancer screening)
History of latent tuberculosis infection
Subjective dyspnea, chronic
Plan:
Adm DH 10-10
Transferred to IMU 10-20
Transferred to ICU 10-22
Acute hypoxic respiratory insufficiency, not on home O2 as outpatient
86% on room air, refractory hypoxemia on O2 NC and HFNC, transferred to IMU 10/20, transferred to ICU on evening 10-22
Multifactorial: adenovirus infection, AECOPD, relatively recent h/o COVID disease, COPD in patient with past h/o heavy smoking, baseline moderate to severe apical emphysema and mild ILD on CT, progressive atelectasis (compressive [secretions
related] and resorptive [high O2 supplementation related]), mild MR, interim worsening of pulm infiltrates (c/w adenovirus pneumonia)
Continue O2 protocol with HFNC, could not tolerate BPAP
Reassuringly in spite of hypoxemia on sometimes marginal POx signal, PO2 on ABG showed hyperoxia on 10-22
Reassuringly resp sloan patient does not feel she is deterioration but is understandably frustrated with her prolonged admission
Of note, ABG on HFNC showed hypoxemia down to 56, wondering if PO2 on previous ABG was due to presence of air bubble and consequently falsely elevated
Monitor for potential epistaxis in setting of high O2 dosing, patient aware
D-dimer 10-23: significantly elevated to 6.36 ug/mL FEU (of note, age-adjusted D-dimer calculated at 0.71 ug/mL). Noted BNP negative on 10-17 and . In retrospect, ^D-d likely due to acute illness and pneumonia/pneumonitis
Rechecked SABRA doppler: negative (negative on 10-18)
Chest CTA 10-17 negative for PE
Repeat CTA 10-23: no PE but worsening pulm infiltrates and atelectasis
Continue HFNC, attempt to wean fiO2 as much as possible for POx>=88% given oligosymptomatic re dyspnea and cough
D/w patient and family, will keep POx readings in context of symptoms to avoid excessive/unnecessary adm of O2
Limited data on use of cidofovir and noted high risk profile for renal failure, and less data on use of brincidofovir on adenovirus pneumonia
Appreciate ID efforts to look into expanded access and clinical trials for brincidofovir; unfortunately the adenovirus trials are full and the drug is out of stock for expanded access (not an option at this time)
Checke Ig panel to rule out hypogammaglobulinemia associated to adenov pn, unclear if IVIG will be of benefit, fortunately Igs normal
Chest CT findings not compatible with activation of LTBI
In clinical context doubt methemoglobinemia is an issue
Encouraged PT/OT
IS
Acapella valve
OOB as much as tolerated
Imaging reviewed
Chest x-ray with mild interstitial changes at the base, progressive nodular consolidation right base
CTA chest 10/18/2023 with right lower lobe consolidation, no PE (baseline CT with moderate to severe apical emphysema and mild ILD changes)
Repeat CXR 10-22 and c/w all prior CXRs since adm showed dynamic changes of infiltration at R>L bases
Recently identified adenovirus noted 10-17
She initially improved, then worsened with worsened infiltrate per imaging
She remains on Solu-Medrol, no wheezing
Doubt will require pulse dose steroids
Weaning CS down to prednisone 40 mg starting 10-25, followed by quick taper to off
Not candidate for BAL at this juncture given increasing O2 needs and consequent risk of procedure, but will proceed if absolutely necessary
History of COVID illness in May per daughter which started her decline
Continue CPT
Was on chest percussion twice daily and 3% saline with sessions bid prior to transfer to ICU
Changed CPT to VEST qid along alb nebs and hypertonic saline nebs 10-23
Strongly advised to use VEST regularly for as long as tolerated duration and intensity of percussion per session to enhance effect of CPT in improving atelectasis
D/c DNs to avoid dryness of secretions due to ipratropium related anticholinergic side effect (also d/c prn diphenhydramine for same reason)
Continue Pulmicort
CXR in AM 10-26
No current evidence of fluid overload
Repeat proBNP remains normal 10-22
ECHO 10-17 reviewed and stable c/w October 2017
She had a left shoulder film in February 2023 at [facility] which commented on a 5 mm left upper lobe nodule
She does have two RUL 6mm nodules that are stable between CT chest imaging on 05/2023 to 07/2023
This can be followed as an outpatient
Insomnia, on outpatient melatonin
Compounded by acute illness, hospital environment, high dose CS
Weaning down CS
Continue melatonin at 10 mg qhs for now instead of prn
Must time nocturnal dosing at 30-45 min of chosen sleep time and procure dark bedroom environment to facilitate action of melatonin
Will not recommend bzd hypnotics due to side effects and limited inpatient hypnotic options
Will benefit from appropriate exposure to daylight during daytime and darkness exposure at night time
DVT prophylaxis: enoxaparin
GI prophylaxis: Protonix daily
D/w Mrs Womack and two daughters at bedside, all questions answered to satisfaction
D/w MDT
Downgraded to IMU level of care -, pulm will continue to follow once out of ICU
Diagnostic Data:
CTA Chest 10-18-2023: Moderate consolidation in the posterior right lung base, as well has patchy airspace opacity in the right lower lobe, consistent with pneumonia. Minor atelectasis versus pneumonia in the left lower lobe. Moderate emphysematous
lung changes. Focal irregular opacity/scarring in the posterior right upper lobe is stable.
CXR 10/21/23: Airspace opacity at the periphery of the mid to lower right lung compatible with pneumonia. Bibasilar atelectasis. No large pleural effusion or pneumothorax. The cardiomediastinal silhouette is stable. Left reverse total shoulder
arthroplasty hardware.
CXR 10-17-2023: Small right pleural effusion. Stable. Tiny left pleural effusion. New Progressed airspace disease in right lower lung field concerning for pneumonia. Mild.
LE Venous Duplex 10-19-2023: No evidence of deep venous thrombosis the lower extremities bilaterally.
ECHO 10/18/23: Normal left ventricular size, wall thickness and systolic function. LV ejection fraction is 60-65%. Mild mitral regurgitation. Moderate tricuspid regurgitation. Estimated PA pressure 45 mmHg. Compared to the previous report 11/08/2017
tricuspid regurgitation reported as moderate percent of the moderate to severe. PA pressure is higher. Previous estimate 25 to 30 mmHg
Subjective Dataa
Subjective Data
Date of Service:
Date of Service: October 26, 2023
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
Subjective:
No major events reported overnight
Remains on high flow nasal cannula, appears in better spirits than prior days
Cooperating with chest PT
Review of Systems
General: Fever (n), Sweats (n), Chills (n) and Satisfactory Appetite
HEENT: Epistaxis (n) and Dysphagia (n)
Cardiopulmonary: Dyspnea, Cough (trace), Wheezing (n), Chest Pain (n), Edema (n), Lower Extremity Pain (n) and Hemoptysis (n)
GI: Abdominal Pain (n), Nausea (n) and Vomiting (n)
Neuro: Weakness (n)
Genitourinary: Hematuria (n)
Objective Data
Data Reviewed
Vital Signs / I&O / Oxygen:
Vital Signs
Temp Pulse Resp BP Pulse Ox
98.5 F 109 18 103/46 97
10/26/23 03:39 10/26/23 06:00 10/26/23 06:00 10/26/23 04:00 10/26/23 06:00
Intake and Output
10/25/23 10/26/23 10/27/23
06:59 06:59 06:59
Intake Total 100 / 100
Output Total 600 / 600 1325 / 1325
Balance -600 / -600 -1225 / -1225
SaO2 97
Nasal Cannula flow liters per 60
minute
Physical Exam
General: Respiratory Distress (mild on HFNC)
HEENT: Normocephalic, Moist Mucous Membranes, Thrush (improved) and Other (full dentures)
Cardiovascular: Regular Rhythm, Murmur (n), Rub, JVD (n), Peripheral Edema (n) and Calf Tenderness (n)
Respiratory: Wheeze, Rhonchi, Accessory Resp Muscle Use (trace) and Stridor (n)
GI: Soft, Non Distended and Non Tender
Neurology: Awake, AO x 3 and No Motor Deficits
Skin: Warm, Good Color and Cyanosis (n)
Labs/Micro/Reports
Lab Data
10/26/23 03:58
10/26/23 03:58
[2023-10-26] MEDS: DELTASONE 40 MG PO (08:09)
[2023-10-26] MEDS: RESTASIS 0.05% OPHTHALMIC EMULSION 1 DROPS BOTH EYES ×2 (08:09→22:02)
[2023-10-26] MEDS: TESSALON PERLES 100 MG PO (08:09)
[2023-10-26] MEDS: MYCOSTATIN ORAL SUSPENSION 5 ML PO ×3 (08:09→22:02)
[2023-10-26] MEDS: MUCINEX 600 MG PO ×2 (08:09→22:02)
[2023-10-26] MEDS: SENOKOT 17.1999999999999993 MG PO ×2 (08:10→22:02)
[2023-10-26] MEDS: VITAMIN D3 (cholecalciferol) 125 MCG PO (08:10)
[2023-10-26] MEDS: COLACE 100 MG PO ×2 (08:10→22:02)
[2023-10-26] MEDS: MIRALAX PO (08:10)
[2023-10-26] MEDS: VENTOLIN NEBULES 2.5 MG INH ×4 (08:35→19:50)
[2023-10-26] MEDS: SODIUM CHLORIDE 3% FOR INHALATION 1 VIAL INH ×4 (08:35→19:50)
[2023-10-26] MEDS: PULMICORT 0.5 MG INH ×2 (08:35→19:50)
--- NOTE | 2023-10-26 09:07 | PTCARENOTE ---
0700 patient received in bed. AAO x3. [place] with b/l hearing aid. denies pain, nausea, dizziness, feeling SOB ST101. BP via left upper arm 93/43 MAP 60 . NO edema. pedal pulses palatable . On High flow 60L/100% POX 88-90%. Dyspnea on exertion. NON
productive dry frequent cough. lungs course through. Morning hygiene and oral care administered. patient transfer to chair with one person minimum assist. call sawant within reach. daughter at bedside. Updates provided. care explained.
--- NOTE | 2023-10-26 10:57 | W.PN.HOSP.TC ---
Today's Communication/Plan
-
Continue with oxygen support and wean as able
Continue with vest therapy and incentive spirometry
Continue with steroid taper.
Assessment / Plan
Assessment / Plan
pt is a 72 year old female
Acute exacerbation of COPD likely due to viral PNA (She had a prior right posterior lower lobe pneumonia which is followed with a repeat CT in July 2023 and it had cleared)--patient presented with new dry cough, progressive shortness of breath,
and actively bronchospastic---cont slow steroid taper, back on IV solumedrol---added pulmicort--CT scan with worsening PNA--levaquin added by ID, then stopped --apprec input--possible viral PNA as adenovirus DNA positive .....now off all abx,
repeat procal negative
ID following
Steroids on wean
Acute hypoxic respiratory failure--persistently hypoxic, now on HI AMITA O2. High A- a gradient suspect possibly sec to decreased DLCO or intrapulmonary shunting. No evidence of PE. Pulm following.
With persistent hypoxia , no complications of pneumonia on the chest x-ray report, no hypercapnia with still pursue first thromboembolic disease with repeat CT chest and ultrasound of the legs -both neg for PE/VTE respectively. CW O2 support and
wean as able
Hyperlipidemia-continue home medication
Urinary retention - needed straight cath once . Follow bladder scans for now. Encourage OOB to chair.
Full code
Discussed with RN
Discussed with daughter at bedside.
Total time spent on today's encounter was 52 minutes which included time spent in counseling the patient/family regarding diagnosis and treatment plan as listed above, goals of care, and symptom management. Case was discussed with nursing staff,
specialists. All labs and imaging personally reviewed by me. Remainder the time spent in detailed review of previous records, lab data, imaging, and other medical provider documentation.
Anticipated Discharge: > 48 hours
Subjective/Interval History
-
Date of Service: October 26, 2023
Did sleep okay last night but this morning she feels tired. Breathing is no worse. No chest pain.
No nausea or vomiting.
No fever or chills.
Objective Data
-
Labs:
Laboratory Results
10/26/23
03:58
WBC 15.0 H
Hgb 13.7
Hct 41.7
Plt Count 157 D
Sodium 140
Potassium 4.3
Chloride 108 H
Carbon Dioxide 24
BUN 25 H
Creatinine 0.9
Glucose 101 H
Calcium 8.8
Vital Signs:
Vital Signs
Temp Pulse Resp BP Pulse Ox
97.8 F 109 22 93/49 94
10/26/23 07:51 10/26/23 08:45 10/26/23 08:45 10/26/23 08:03 10/26/23 10:10
I&O
10/25/23 10/26/23 10/27/23
06:59 06:59 06:59
Intake Total 100 / 100 100 / 100
Output Total 600 / 600 1325 / 1325
Balance -600 / -600 -1225 / -1225 100 / 100
Review of Systems
-
Constitutional: Denies Fever
EENT: Denies Sore Throat
Abdomen/GI: Denies Abdominal Pain or Diarrhea
Genitourinary: Reports Difficulty Voiding; Denies Dysuria
Neuro: Denies Dizzy
Physical Exam
-
General: No Apparent Distress
HEENT: Moist Mucous Membranes
Respiratory: Crackles (few in left base today) and Non Labored Respirations; Negative Wheezes or Accessory Resp Muscle Use
Cardiac: Regular Rhythm and S1/S2
GI: Soft
Neuro: AO x 3
Psych: Calm; Negative Confused
Data Reviewed
-
Labs: Labs Reviewed by me
--- NOTE | 2023-10-26 13:13 | CM ---
CM following re: discharge planning.
Discussed in rounds, reviewed pt' chart, met with pt, family at bedside.
Per Rounds meeting, pt requires 55L HFNC, down from 60 L HFNC, weaning off O2, continue supportive care.
Per CM note, patient lives alone in a 2 story home and is independent with functional ability.
D/C plan: uncertain at this time and will depend on pt's progress. Pt hopes to return back home when medically stable.
CM will follow with discharge plan updates as hospitalization progresses
--- NOTE | 2023-10-26 13:21 | W.PN.ID1 ---
Date of Service
Date of Service: October 26, 2023
Today's Communication
supportive care
steroid taper
droplet and contact precautions - isolation for duration of illness, there can be prolonged viral shedding
Assessment / Plan
Pneumonia due to Adenovirus
COPD
- COPD changes described as moderate on last CT
Pulmonary HTN
- suspect hypoxemia is in part due to structural lung changes from moderate COPD
- please to see steroid wean
- suspect fatigue/malaise is more inflammation as body responding more to the adenovirus
- adenovirus noted - care is supportive
- negative procalcitonin x3 (most recently 10/20) and clear alternative diagnosis; no indication for antibiotics at this time
- brincidofovir on national shortage and not available outside of clinical trials for CMV at this time; would not recommend cidofovir given significant side effect profile even with a single dose
- droplet and contact precautions - isolation for duration of illness, there can be prolonged viral shedding
- follow clinically
Chief Complaint
-: Pneumonia and Other (adenovirus)
Subjective / Review of Systems
afebrile
bp borderline hypotensive this afternoon
high flow NC at 50L 100% O2 slight decrease, however sating lower as well
declined wbc with steroid taper
Igm a bit high, antibiodies otherwise normal
Vital Signs / Physical Exam
Vital Signs
Vital Signs
Temp Pulse Resp BP Pulse Ox
97.7 F 103 18 93/49 89
10/26/23 12:24 10/26/23 11:52 10/26/23 11:52 10/26/23 08:03 10/26/23 11:52
Physical Exam
Constitutional: No Acute Distress
Cardiovascular: Regular Rate and S1/S2; Negative Murmur or Rub
Pulmonary: Clear and Symmetric; Negative Wheezes or Rales
Gastrointestinal: Soft, Non Tender, Non Distended and Normal Bowel Sounds
Skin: Warm and Dry; Negative Rash or Jaundice
Objective Data
Lab Data
Lab Results
10/26/23 03:58
10/26/23 03:58
Estimated Creat Clear 62 ml/min 10/26/23 03:58
Total Bilirubin 0.5 mg/dl (0.2-1.3) 10/22/23 03:54
AST 20 U/L (14-36) 10/22/23 03:54
ALT 17 U/L (0-35) 10/22/23 03:54
Alkaline Phosphatase 67 U/L (38-126) 10/22/23 03:54
Most recent labs reviewed.
Micro Results:
10/18/23 16:45 Influenza Type A (PCR) - Final
Nasalpharynx Not Detected
Influenza Type A (H1) (PCR) - Final
Not Detected
Influenza Type A (H3) (PCR) - Final
Not Detected
Influenza Type B (PCR) - Final
Not Detected
Resp Syncytial Virus Type A (PCR) - Final
Not Detected
Resp Syncytial Virus Type B (PCR) - Final
Not Detected
Adenovirus DNA (PCR) - Final
DETECTED
Human Metapneumovirus (PCR) - Final
Not Detected
Parainfluenza Virus Type 1 (PCR) - Final
Not Detected
Parainfluenza Virus Type 2 (PCR) - Final
Not Detected
Parainfluenza Virus Type 3 (PCR) - Final
Not Detected
Parainfluenza Virus Type 4 - Final
Not Detected
Rhinovirus (PCR) - Final
Not Detected
10/11/23 06:30 Influenza Types A & B (ROSY) - Final
Nasal Swab Negative for Influenza A & B, NAAT
Negative results must be combined with clinical observations
and patient history.
Nucleic Acid Amplification test (NAAT)performed on the
[employer] platform.
05/11/24 CXR : Airspace opacity at the periphery of the mid to lower right lung compatible with pneumonia. Bibasilar atelectasis. No large pleural effusion or pneumothorax. The cardiomediastinal silhouette is stable. Left reverse total shoulder
arthroplasty hardware.
Care Review
Plan reviewed with: Physician (Dr Johny penny)
--- NOTE | 2023-10-26 14:17 | PTCARENOTE ---
OOB chair 6 hrs. transfer with supervision to bed. High flow 50L /90 % POX 90% No urinal output bladder scanned for 35CC
[2023-10-26] MEDS: MYCOSTATIN ORAL SUSPENSION PO (14:49)
[2023-10-26] MEDS: PROTONIX 40 MG PO (14:54)
--- NOTE | 2023-10-26 17:33 | PTCARENOTE ---
patient in bed AAO x3. On high flow 50L/85% POX 89% with POX goal 88% and above. Bladder scanned for 135 cc . encouraged po fluids
[2023-10-26] MEDS: LOVENOX 40 MG SC (17:45)
[2023-10-26] MEDS: CRESTOR 5 MG PO (17:45)
--- NOTE | 2023-10-26 19:00 | PTCARENOTE ---
vitals verified from 1500 until now from prev shift, can only verify accuracy of vital signs starting at 1900 this shift.
--- NOTE | 2023-10-26 20:00 | PTCARENOTE ---
mission assessment specialist, aaox3, denies pain, HFNC 50L/85%,Sat 88-91%. dtr at bedside, POC discussed, call sawant with pt.
[2023-10-26] MEDS: XANAX 0.5 MG PO (22:02)
[2023-10-26] MEDS: MELATONIN 10 MG PO (22:02)
--- NOTE | 2023-10-26 22:05 | PTCARENOTE ---
no UO previous shift, pt bladder scanned for 799cc at this time, pt request to attempt to void on own before need for straight cath. purewick placed, will monitor.
[2023-10-27] VITALS (21 sets, daily range): BP systolic 96–136; BP diastolic 19–113; BMI 30.7
[2023-10-27 02:58] LABS: IgG Subclass 1 403 mg/dL (240-1118); IgG Subclass 2 367 mg/dL (124-549); IgG Subclass 3 93 mg/dL (21-134); IgG Subclass 4 32 mg/dL (1-123)
[2023-10-27] MEDS: TYLENOL 1000 MG PO (04:44)
[2023-10-27 05:23] LABS: Hemoglobin 13.7 g/dL (12.0-16.0); Mean Corp Hgb Conc. 33.4 g/dL (33.0-37.0); Mean Corpuscular Volume 89.9 fL (81.0-99.0); Mean Platelet Volume 9.6 fL (7.4-10.4); Platelet Count 137 10^3/uL (130-400); Red Blood Cell Count 4.56 10^6/uL (4.20-5.40); Red Cell Dist. Width 13.6 % (11.5-14.5); White Blood Cell Count 14.4 10^3/uL (4.8-10.8)
[2023-10-27 05:53] LABS: Blood Urea Nitrogen 17 mg/dl (7-17); Calcium 8.5 mg/dl (8.4-10.2); Carbon Dioxide 25 mmol/L (22-30); Chloride 104 mmol/L (98-107); Estimated Creatinine Clearance 70 ml/min; Glucose 98 mg/dl (70-99); Potassium 3.9 mmol/L (3.5-5.1); Sodium 138 mmol/L (135-145); eGFR > 60.00
--- NOTE | 2023-10-27 07:31 | W.PN.INTV ---
Today's Communication / Plan
Recommendations
O2
Prednisone taper
Chest PT
Ibuprofen, lidocaine patch
Assessment
-
Assessment:
Mrs Nicki Womack is a 72-year-old female with history of recent COVID infection 05/18/2023, right lower lobe pneumonia identified at [facility] with improvement radiographically, left shoulder surgery April 2023, heartburn, questionable
COPD, significant smoking history who presents with 3 days of increased shortness of breath. Unfortunate patient did not start her maintenance regimen as discussed in the past for obstructive lung disease. Chest x-ray suggest possible right lower
lobe process. Admitted for COPD exacerbation 10/11/2023
Known to our outpatient pulmonary service, admitted on October 10 from home through emergency department, seen same day well Dr. Sanchez who follows with her in the office. Pulmonary has continue following the patient since admission for acute hypoxemic
respiratory failure, the patient is not on oxygen at home, she was diagnosed with adenovirus respiratory infection and is being actively followed by the ID service with a diagnosis of right lower lobe and right middle pneumonia, right middle lobe
and right lower atelectasis. Reportedly she has a history of mild interstitial lung disease per chest CT along with few scattered nodules in the right upper lobe, known submillimeter sized as well as mild to moderate centrilobular emphysema. No
has had significant history of smoking quitting 20 years ago with a [id number] history of smoking. Also has a history of latent to close infection. Outpatient she is on albuterol inhaler and tiotropium�olodaterol (Stiolto).
Due to persistent hypoxemia requiring high flow nasal cannula, the patient was transferred to the ICU last night on October 22, reportedly BiPAP was attempted but she could not tolerate it, the patient continue on high flow nasal cannula. Of note, in
the spite of hypoxemia on pulse oximetry, pO2 on arterial blood gases show hyperoxia on supplemental oxygen via high flow.
Seen at ICU -14, she was accompanied by one of her daughters, case was reviewed and discussed in detail with them, also discussed case with Dr. Alonzo from the hospitalist service
Impression.
Acute hypoxic respiratory insufficiency
86% on room air, refractory hypoxemia on O2 NC and HFNC, transferred to IMU 10/20, transferred to ICU on evening 10-22
Multifactorial: adenovirus infection, AECOPD, relatively recent h/o COVID disease, COPD in patient with past h/o heavy smoking, moderate to severe apical emphysema and baseline mild ILD on CT, mild MR, atelectasis
Acute COPD exacerbation
Right lower lobe/RML pneumonia - pt worsening clinically and radiographically on 10/21/2023
Recent right lower lobe pneumonia, improved radiographically July 2023
RML/RLL atelectasis mainly seen on CXR from 10/15/2023
Acute mild reproducible lower left rib cage pain: Costochondritis
Conditions present prior to admission
Mild interstitial lung disease per CT chest
Few scattered nodules mainly in RUL including two 6mm nodules
Recent left apical nodule 5 mm per left shoulder imaging, February 2023 ([facility])
Mild-moderate centrilobular emphysema per CT imaging
Hx of Covid April 2023
[id number] history of smoking, quit 20 years ago (she does not qualify for LDCT chest imaging for lung cancer screening)
History of latent tuberculosis infection
Subjective dyspnea, chronic
Plan:
Adm DH 10-10
Transferred to IMU 10-20
Transferred to ICU 10-22
Acute hypoxic respiratory insufficiency, not on home O2 as outpatient
86% on room air, refractory hypoxemia on O2 NC and HFNC, transferred to IMU 10/20, transferred to ICU on evening 10-22
Multifactorial: adenovirus infection, AECOPD, relatively recent h/o COVID disease, COPD in patient with past h/o heavy smoking, baseline moderate to severe apical emphysema and mild ILD on CT, progressive atelectasis (compressive [secretions
related] and resorptive [high O2 supplementation related]), mild MR, interim worsening of pulm infiltrates (c/w adenovirus pneumonia)
Continue O2 protocol with HFNC, could not tolerate BPAP
Reassuringly in spite of hypoxemia on sometimes marginal POx signal, PO2 on ABG showed hyperoxia on 10-22
Reassuringly resp sloan patient does not feel she is deterioration but is understandably frustrated with her prolonged admission
Of note, ABG on HFNC showed hypoxemia down to 56, wondering if PO2 on previous ABG was due to presence of air bubble and consequently falsely elevated
Monitor for potential epistaxis in setting of high O2 dosing, patient aware
D-dimer 10-23: significantly elevated to 6.36 ug/mL FEU (of note, age-adjusted D-dimer calculated at 0.71 ug/mL). Noted BNP negative on 10-17 and . In retrospect, ^D-d likely due to acute illness and pneumonia/pneumonitis
Rechecked SABRA doppler: negative (negative on 10-18)
Chest CTA 10-17 negative for PE
Repeat CTA 10-23: no PE but worsening pulm infiltrates and atelectasis
Continue HFNC, attempt to wean fiO2 as much as possible for POx>=88% given oligosymptomatic re dyspnea and cough
D/w patient and family, will keep POx readings in context of symptoms to avoid excessive/unnecessary adm of O2
Limited data on use of cidofovir and noted high risk profile for renal failure, and less data on use of brincidofovir on adenovirus pneumonia
Appreciate ID efforts to look into expanded access and clinical trials for brincidofovir; unfortunately the adenovirus trials are full and the drug is out of stock for expanded access (not an option at this time)
Checke Ig panel to rule out hypogammaglobulinemia associated to adenov pn, unclear if IVIG will be of benefit, fortunately Igs normal
Chest CT findings not compatible with activation of LTBI
In clinical context doubt methemoglobinemia is an issue
Encouraged PT/OT
IS
Acapella valve
OOB as much as tolerated
Imaging reviewed
Chest x-ray with mild interstitial changes at the base, progressive nodular consolidation right base
CTA chest 10/18/2023 with right lower lobe consolidation, no PE (baseline CT with moderate to severe apical emphysema and mild ILD changes)
Repeat CXR 10-22 and 14 c/w all prior CXRs since adm showed dynamic changes of infiltration at R>L bases
Recently identified adenovirus noted 10-17
She initially improved, then worsened with worsened infiltrate per imaging
She remains on Solu-Medrol, no wheezing
Doubt will require pulse dose steroids
Weaning CS down to prednisone 40 mg starting 10-25, followed by quick taper to off
Not candidate for BAL at this juncture given increasing O2 needs and consequent risk of procedure, but will proceed if absolutely necessary
History of COVID illness in May per daughter which started her decline
Continue CPT
Was on chest percussion twice daily and 3% saline with sessions bid prior to transfer to ICU
Changed CPT to VEST qid along alb nebs and hypertonic saline nebs 10-23
Strongly advised to use VEST regularly for as long as tolerated duration and intensity of percussion per session to enhance effect of CPT in improving atelectasis
D/c DNs to avoid dryness of secretions due to ipratropium related anticholinergic side effect (also d/c prn diphenhydramine for same reason)
Continue Pulmicort
CXR in AM 10-26 with persistent and denser basilar atelectatic changes however, patient is clinically improved as compared to prior days even with some weaning from FiO2 via high flow nasal cannula
Acute left lower rib cage pain, reproducible, costochondritis
Started as needed use of ibuprofen and lidocaine patch on October 26
No current evidence of fluid overload
Repeat proBNP remains normal 10-22
ECHO 10-17 reviewed and stable c/w October 2017
She had a left shoulder film in February 2023 at [facility] which commented on a 5 mm left upper lobe nodule
She does have two RUL 6mm nodules that are stable between CT chest imaging on 05/2023 to 07/2023
This can be followed as an outpatient
Insomnia, on outpatient melatonin
Compounded by acute illness, hospital environment, high dose CS
Weaning down CS
Continue melatonin at 10 mg qhs for now instead of prn
Must time nocturnal dosing at 30-45 min of chosen sleep time and procure dark bedroom environment to facilitate action of melatonin
Will not recommend bzd hypnotics due to side effects and limited inpatient hypnotic options
Will benefit from appropriate exposure to daylight during daytime and darkness exposure at night time
DVT prophylaxis: enoxaparin
GI prophylaxis: Protonix daily
D/w Mrs Womack and two daughters at bedside, all questions answered to satisfaction
D/w MDT
Downgraded to IMU level of care 10-23
Currently can downgrade from IMU as she is respiratory sloan improved and remains hemodynamically stable. She can be transferred to 2 N, floor that is used to manage patients on high flow nasal cannula, pulm will continue to follow closely
Diagnostic Data:
CTA Chest 10-18-2023: Moderate consolidation in the posterior right lung base, as well has patchy airspace opacity in the right lower lobe, consistent with pneumonia. Minor atelectasis versus pneumonia in the left lower lobe. Moderate emphysematous
lung changes. Focal irregular opacity/scarring in the posterior right upper lobe is stable.
CXR 10/21/23: Airspace opacity at the periphery of the mid to lower right lung compatible with pneumonia. Bibasilar atelectasis. No large pleural effusion or pneumothorax. The cardiomediastinal silhouette is stable. Left reverse total shoulder
arthroplasty hardware.
CXR 10-17-2023: Small right pleural effusion. Stable. Tiny left pleural effusion. New Progressed airspace disease in right lower lung field concerning for pneumonia. Mild.
LE Venous Duplex 10-19-2023: No evidence of deep venous thrombosis the lower extremities bilaterally.
ECHO 10/18/23: Normal left ventricular size, wall thickness and systolic function. LV ejection fraction is 60-65%. Mild mitral regurgitation. Moderate tricuspid regurgitation. Estimated PA pressure 45 mmHg. Compared to the previous report 11/08/2017
tricuspid regurgitation reported as moderate percent of the moderate to severe. PA pressure is higher. Previous estimate 25 to 30 mmHg
Subjective Dataa
Subjective Data
Date of Service:
Date of Service: October 27, 2023
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
Subjective:
No major events reported overnight
Continues on high flow nasal cannula, slowly weaning down FiO2 and liters per minute
Oximetry goals discussed with patient and family, will try to overcorrect hypoxemia per oximetry readings
Complains of left flank pain
Review of Systems
General: Fever (n), Sweats (n), Chills and Satisfactory Appetite (n)
HEENT: Dysphagia (n)
Cardiopulmonary: Dyspnea, Cough, Wheezing (n) and Chest Pain (Left flank pain, located at lower left rib cage, reproducible with palpation)
GI: Abdominal Pain (n), Nausea (n) and Vomiting (n)
Neuro: Weakness
Genitourinary: Hematuria (n)
Objective Data
Data Reviewed
Vital Signs / I&O / Oxygen:
Vital Signs
Temp Pulse Resp BP Pulse Ox
97.8 F 94 29 115/73 94
10/27/23 03:00 10/27/23 06:00 10/27/23 06:00 10/27/23 06:00 10/27/23 06:00
Intake and Output
10/26/23 10/27/23 10/28/23
06:59 06:59 06:59
Intake Total 100 / 100 1660 / 1660
Output Total 1325 / 1325 900 / 900
Balance -1225 / -1225 760 / 760
SaO2 94
Nasal Cannula flow liters per 50
minute
Physical Exam
General: Respiratory Distress (mild on HFNC)
HEENT: Normocephalic, Moist Mucous Membranes, Thrush (improved) and Other (full dentures)
Cardiovascular: Regular Rhythm, Murmur (n), Rub, JVD (n), Peripheral Edema (n) and Calf Tenderness (n)
Respiratory: Wheeze, Rhonchi, Accessory Resp Muscle Use (trace), Stridor (n) and Other (Pain on palpation of lower left rib cage, no rash)
GI: Soft, Non Distended and Non Tender
Neurology: Awake, AO x 3 and No Motor Deficits
Skin: Warm, Good Color and Cyanosis (n)
Labs/Micro/Reports
Lab Data
10/27/23 04:55
10/27/23 04:55
[2023-10-27] MEDS: PULMICORT 0.5 MG INH ×2 (07:56→20:29)
[2023-10-27] MEDS: SODIUM CHLORIDE 3% FOR INHALATION 1 VIAL INH ×4 (07:56→20:29)
[2023-10-27] MEDS: VENTOLIN NEBULES 2.5 MG INH ×4 (07:57→20:29)
[2023-10-27] MEDS: MUCINEX 600 MG PO ×2 (08:06→21:22)
[2023-10-27] MEDS: DELTASONE 40 MG PO (08:06)
[2023-10-27] MEDS: SENOKOT 17.1999999999999993 MG PO (08:06)
[2023-10-27] MEDS: COLACE 100 MG PO (08:06)
[2023-10-27] MEDS: MYCOSTATIN ORAL SUSPENSION 5 ML PO ×4 (08:07→21:27)
[2023-10-27] MEDS: MIRALAX 17 GRAMS PO (08:07)
[2023-10-27] MEDS: VITAMIN D3 (cholecalciferol) 125 MCG PO (08:07)
[2023-10-27] MEDS: RESTASIS 0.05% OPHTHALMIC EMULSION 1 DROPS BOTH EYES ×2 (08:07→21:22)
[2023-10-27] MEDS: PROTONIX 40 MG PO (08:07)
--- NOTE | 2023-10-27 08:12 | PTCARENOTE ---
0700 patient received in bed. Transfer to chair with minimum assist . BP via left upper arm 136/113 ST 105 RR 26. POX 90% /50L/85% dry frequent dry cough. c/o of chest and left upper ribcage pain increase with inhalations. Abdomen soft non tender .
no edema pedal pulses palatable . peripheral line RT wrist capped flushed. pt has difficulties with scan bladder at noon call sawant within reach
--- NOTE | 2023-10-27 08:51 | W.PN.ID1 ---
Date of Service
Date of Service: October 27, 2023
Today's Communication
supportive care
clinically improving - im pleased
Assessment / Plan
Pneumonia due to Adenovirus
COPD
- COPD changes described as moderate on last CT
- pleased to see O2 requirements improving
- would continue steroid wean as feasible
- continue supportive care
- droplet and contact precautions - isolation for duration of illness, there can be prolonged viral shedding
- bladder scan and prn straight caths added for retention
- follow clinically
Patient is critically ill
Chief Complaint
-: Pneumonia and Other (adenovirus)
Subjective / Review of Systems
down to 50L and 85% fio2
declining leukocytosis with steroid wean
cr 0.8
CXR today: bilateral patchy infiltrates; my read: progression
'I feel better than yesterday'
Vital Signs / Physical Exam
Vital Signs
Vital Signs
Temp Pulse Resp BP Pulse Ox
97.8 F 94 29 115/73 94
10/27/23 03:00 10/27/23 06:00 10/27/23 06:00 10/27/23 06:00 10/27/23 06:00
Physical Exam
Constitutional: Acutely Ill and Non-toxic
Cardiovascular: Regular Rate and S1/S2; Negative Murmur or Rub
Pulmonary: Clear, Symmetric and Non Labored; Negative Wheezes or Rales
Gastrointestinal: Soft, Non Tender, Non Distended and Normal Bowel Sounds
Skin: Warm and Dry; Negative Rash or Jaundice
Neurological: Awake
Objective Data
Lab Data
Lab Results
10/27/23 04:55
10/27/23 04:55
Estimated Creat Clear 70 ml/min 10/27/23 04:55
Total Bilirubin 0.5 mg/dl (0.2-1.3) 10/22/23 03:54
AST 20 U/L (14-36) 10/22/23 03:54
ALT 17 U/L (0-35) 10/22/23 03:54
Alkaline Phosphatase 67 U/L (38-126) 10/22/23 03:54
Most recent labs reviewed.
Micro Results:
10/18/23 16:45 Influenza Type A (PCR) - Final
Nasalpharynx Not Detected
Influenza Type A (H1) (PCR) - Final
Not Detected
Influenza Type A (H3) (PCR) - Final
Not Detected
Influenza Type B (PCR) - Final
Not Detected
Resp Syncytial Virus Type A (PCR) - Final
Not Detected
Resp Syncytial Virus Type B (PCR) - Final
Not Detected
Adenovirus DNA (PCR) - Final
DETECTED
Human Metapneumovirus (PCR) - Final
Not Detected
Parainfluenza Virus Type 1 (PCR) - Final
Not Detected
Parainfluenza Virus Type 2 (PCR) - Final
Not Detected
Parainfluenza Virus Type 3 (PCR) - Final
Not Detected
Parainfluenza Virus Type 4 - Final
Not Detected
Rhinovirus (PCR) - Final
Not Detected
10/11/23 06:30 Influenza Types A & B (ROSY) - Final
Nasal Swab Negative for Influenza A & B, NAAT
Negative results must be combined with clinical observations
and patient history.
Nucleic Acid Amplification test (NAAT)performed on the
[employer]Star platform.
10/21/23 CXR : Airspace opacity at the periphery of the mid to lower right lung compatible with pneumonia. Bibasilar atelectasis. No large pleural effusion or pneumothorax. The cardiomediastinal silhouette is stable. Left reverse total shoulder
arthroplasty hardware.
[2023-10-27] MEDS: MOTRIN 400 MG PO ×2 (11:07→21:27)
[2023-10-27] MEDS: TESSALON PERLES 100 MG PO (11:07)
[2023-10-27] MEDS: LIDOCAINE 4% PATCH 1 PATCH TOPICAL (11:13)
--- NOTE | 2023-10-27 12:24 | CM ---
CM following re: discharge planning.
Discussed in rounds, reviewed pt' chart, met with pt, family at bedside.
Per Rounds meeting, pt requires 40 L HFNC, down from 50 L HFNC, weaning off O2, continue supportive care.
Per CM note, patient lives alone in a 2 story home and is independent with functional ability.
PT and OT evaluations noted - SNF vs VN recommended. Pt preferred to discuss it later.
D/C plan: SNF vs VN recommended. Pt hopes to return back home when medically stable.
CM will follow with discharge plan updates as hospitalization progresses
--- NOTE | 2023-10-27 15:46 | W.PN.HOSP.TC ---
Today's Communication/Plan
-
Tx to IMU
Assessment / Plan
Assessment / Plan
pt is a 72 year old female
Acute exacerbation of COPD likely due to viral PNA (She had a prior right posterior lower lobe pneumonia which is followed with a repeat CT in July 2023 and it had cleared)--patient presented with new dry cough, progressive shortness of breath,
and actively bronchospastic---cont slow steroid taper, back on IV solumedrol---added pulmicort--CT scan with worsening PNA--levaquin added by ID, then stopped --apprec input--possible viral PNA as adenovirus DNA positive .....now off all abx,
repeat procal negative
ID following
Steroids on wean
Acute hypoxic respiratory failure--persistently hypoxic, now on HI MAITA O2. High A- a gradient suspect possibly sec to decreased DLCO or intrapulmonary shunting. No evidence of PE. Pulm following.
With persistent hypoxia , no complications of pneumonia on the chest x-ray report, no hypercapnia with still pursue first thromboembolic disease with repeat CT chest and ultrasound of the legs -both neg for PE/VTE respectively. CW O2 support and
wean as able
Improving FIO2
Hyperlipidemia-continue home medication
Urinary retention - needed straight cath once . Follow bladder scans for now. Encourage OOB to chair.
Full code
Discussed with daughter at bedside.
Tx to IMU
Anticipated Discharge: > 48 hours
Subjective/Interval History
-
Date of Service: October 27, 2023
feeling improved.
On lesser FiO2.
Objective Data
-
Labs:
Laboratory Results
10/27/23
04:55
WBC 14.4 H
Hgb 13.7
Hct 41.0
Plt Count 137
Sodium 138
Potassium 3.9
Chloride 104
Carbon Dioxide 25
BUN 17
Creatinine 0.8
Glucose 98
Calcium 8.5
Vital Signs:
Vital Signs
Temp Pulse Resp BP Pulse Ox
97.8 F 105 22 131/69 96
10/27/23 14:22 10/27/23 14:00 10/27/23 14:00 10/27/23 14:00 10/27/23 14:00
I&O
10/26/23 10/27/23 10/28/23
06:59 06:59 06:59
Intake Total 100 / 100 1660 / 1660 960 / 960
Output Total 1325 / 1325 900 / 900 350 / 350
Balance -1225 / -1225 760 / 760 610 / 610
Review of Systems
-
Constitutional: Denies Fever
EENT: Denies Sore Throat
Respiratory: Denies Trouble Breathing (at rest)
Cardiac: Denies Chest Pain
Abdomen/GI: Denies Nausea or Vomiting
Neuro: Denies Dizzy
Physical Exam
-
General: No Apparent Distress
HEENT: Moist Mucous Membranes
Respiratory: Crackles (few in left base) and Non Labored Respirations; Negative Accessory Resp Muscle Use
Cardiac: Regular Rhythm and S1/S2
Neuro: AO x 3
Data Reviewed
-
Labs: Labs Reviewed by me
[2023-10-27] MEDS: LOVENOX 40 MG SC (16:18)
[2023-10-27] MEDS: CRESTOR 5 MG PO (16:18)
[2023-10-27] MEDS: COLACE PO (21:22)
[2023-10-27] MEDS: SENOKOT PO (21:22)
[2023-10-27] MEDS: MELATONIN 10 MG PO (21:28)
--- NOTE | 2023-10-27 23:14 | PTCARENOTE ---
Patient walked to bathroom with assist, continent of urine. Patient tolerating 15L O2 via NC.
[2023-10-28] VITALS (10 sets, daily range): BP systolic 97–132; BP diastolic 52–79; BMI 29.0
--- NOTE | 2023-10-28 07:40 | W.PN.PUL3 ---
Today's Communication / Plan
-
O2
Pred taper to off
CPT
MedSx
Assessment
-
Assessment:
Mrs Nicki Womack is a 72-year-old female with history of recent COVID infection 05/18/2023, right lower lobe pneumonia identified at [facility] with improvement radiographically, left shoulder surgery April 2023, heartburn, questionable
COPD, significant smoking history who presents with 3 days of increased shortness of breath. Unfortunate patient did not start her maintenance regimen as discussed in the past for obstructive lung disease. Chest x-ray suggest possible right lower
lobe process. Admitted for COPD exacerbation 10/11/2023
Known to our outpatient pulmonary service, admitted on October 10 from home through emergency department, seen same day well Dr. Sanchez who follows with her in the office. Pulmonary has continue following the patient since admission for acute hypoxemic
respiratory failure, the patient is not on oxygen at home, she was diagnosed with adenovirus respiratory infection and is being actively followed by the ID service with a diagnosis of right lower lobe and right middle pneumonia, right middle lobe
and right lower atelectasis. Reportedly she has a history of mild interstitial lung disease per chest CT along with few scattered nodules in the right upper lobe, known submillimeter sized as well as mild to moderate centrilobular emphysema. No
has had significant history of smoking quitting 20 years ago with a [id number] history of smoking. Also has a history of latent to close infection. Outpatient she is on albuterol inhaler and tiotropium�olodaterol (Stiolto).
Due to persistent hypoxemia requiring high flow nasal cannula, the patient was transferred to the ICU last night on October 22, reportedly BiPAP was attempted but she could not tolerate it, the patient continue on high flow nasal cannula. Of note, in
the spite of hypoxemia on pulse oximetry, pO2 on arterial blood gases show hyperoxia on supplemental oxygen via high flow.
Seen at ICU -14, she was accompanied by one of her daughters, case was reviewed and discussed in detail with them, also discussed case with Dr. Alonzo from the hospitalist service
Impression.
Acute hypoxic respiratory insufficiency
86% on room air, refractory hypoxemia on O2 NC and HFNC, transferred to IMU 10/20, transferred to ICU on evening 10-22
Multifactorial: adenovirus infection, AECOPD, relatively recent h/o COVID disease, COPD in patient with past h/o heavy smoking, moderate to severe apical emphysema and baseline mild ILD on CT, mild MR, atelectasis
Acute COPD exacerbation
Right lower lobe/RML pneumonia - pt worsening clinically and radiographically on 10/21/2023
Recent right lower lobe pneumonia, improved radiographically July 2023
RML/RLL atelectasis mainly seen on CXR from 10/15/2023
Acute mild reproducible lower left rib cage pain: Costochondritis
Conditions present prior to admission
Mild interstitial lung disease per CT chest
Few scattered nodules mainly in RUL including two 6mm nodules
Recent left apical nodule 5 mm per left shoulder imaging, February 2023 ([facility])
Mild-moderate centrilobular emphysema per CT imaging
Hx of Covid April 2023
[id number] history of smoking, quit 20 years ago (she does not qualify for LDCT chest imaging for lung cancer screening)
History of latent tuberculosis infection
Subjective dyspnea, chronic
Plan:
Adm DH 10-10
Transferred to IMU 10-20
Transferred to ICU 10-22
Acute hypoxic respiratory insufficiency, not on home O2 as outpatient
86% on room air, refractory hypoxemia on O2 NC and HFNC, transferred to IMU 10/20, transferred to ICU on evening 10-22
Multifactorial: adenovirus infection, AECOPD, relatively recent h/o COVID disease, COPD in patient with past h/o heavy smoking, baseline moderate to severe apical emphysema and mild ILD on CT, progressive atelectasis (compressive [secretions
related] and resorptive [high O2 supplementation related]), mild MR, interim worsening of pulm infiltrates (c/w adenovirus pneumonia)
Continue O2 protocol
Was on HFNC 24/ for several days, could not tolerate BPAP
Reassuringly in spite of hypoxemia on sometimes marginal POx signal, PO2 on ABG showed hyperoxia on 10-22
Reassuringly resp sloan patient does not feel she is deterioration but is understandably frustrated with her prolonged admission
Of note, ABG on HFNC showed hypoxemia down to 56, wondering if PO2 on previous ABG was due to presence of air bubble and consequently falsely elevated
Monitor for potential epistaxis in setting of high O2 dosing, patient aware
D-dimer 10-23: significantly elevated to 6.36 ug/mL FEU (of note, age-adjusted D-dimer calculated at 0.71 ug/mL). Noted BNP negative on 10-17 and . In retrospect, ^D-d likely due to acute illness and pneumonia/pneumonitis
Rechecked SABRA doppler: negative (negative on 10-18)
Chest CTA 10-17 negative for PE
Repeat CTA 10-23: no PE but worsening pulm infiltrates and atelectasis
Able to wean down HFNC to off
Currently on MFNC 15 L with POx up to 94^=% at times
Continue to wean fiO2 as much as possible for POx>=88% given oligosymptomatic re dyspnea and cough
D/w patient and family, will keep POx readings in context of symptoms to avoid excessive/unnecessary adm of O2
Limited data on use of cidofovir and noted high risk profile for renal failure, and less data on use of brincidofovir on adenovirus pneumonia
Appreciate ID efforts to look into expanded access and clinical trials for brincidofovir; unfortunately the adenovirus trials are full and the drug is out of stock for expanded access (not an option at this time)
Checke Ig panel to rule out hypogammaglobulinemia associated to adenov pn, unclear if IVIG will be of benefit, fortunately Igs normal
Chest CT findings not compatible with activation of LTBI
In clinical context doubt methemoglobinemia is an issue
Encouraged PT/OT
IS
Acapella valve
OOB as much as tolerated
Imaging reviewed
Chest x-ray with mild interstitial changes at the base, progressive nodular consolidation right base
CTA chest 10/18/2023 with right lower lobe consolidation, no PE (baseline CT with moderate to severe apical emphysema and mild ILD changes)
Repeat CXR 10-22 and c/w all prior CXRs since adm showed dynamic changes of infiltration at R>L bases
Recently identified adenovirus noted 10-17
She initially improved, then worsened with worsened infiltrate per imaging
She remains on Solu-Medrol, no wheezing
Doubt will require pulse dose steroids
Weaning CS down to prednisone 40 mg starting 10-25, followed by quick taper to off
Not candidate for BAL at this juncture given increasing O2 needs and consequent risk of procedure, but will proceed if absolutely necessary
History of COVID illness in May per daughter which started her decline
Continue CPT
Was on chest percussion twice daily and 3% saline with sessions bid prior to transfer to ICU
Changed CPT to VEST qid along alb nebs and hypertonic saline nebs 10-23
Strongly advised to use VEST regularly for as long as tolerated duration and intensity of percussion per session to enhance effect of CPT in improving atelectasis
D/c DNs to avoid dryness of secretions due to ipratropium related anticholinergic side effect (also d/c prn diphenhydramine for same reason)
Continue Pulmicort
CXR in AM 10-26 with persistent and denser basilar atelectatic changes however, patient is clinically improved as compared to prior days even with some weaning from FiO2 via high flow nasal cannula
Acute left lower rib cage pain, reproducible, costochondritis
Started as needed use of ibuprofen and lidocaine patch on October 26, continue
No current evidence of fluid overload
Repeat proBNP remains normal 10-22
ECHO 10-17 reviewed and stable c/w October 2017
She had a left shoulder film in February 2023 at [facility] which commented on a 5 mm left upper lobe nodule
She does have two RUL 6mm nodules that are stable between CT chest imaging on 05/2023 to 07/2023
This can be followed as an outpatient
Insomnia, on outpatient melatonin
Compounded by acute illness, hospital environment, high dose CS
Weaning down CS
Continue melatonin at 10 mg qhs for now instead of prn
Must time nocturnal dosing at 30-45 min of chosen sleep time and procure dark bedroom environment to facilitate action of melatonin
Will not recommend bzd hypnotics due to side effects and limited inpatient hypnotic options
Will benefit from appropriate exposure to daylight during daytime and darkness exposure at night time
DVT prophylaxis: enoxaparin
GI prophylaxis: Protonix daily
D/w Mrs Womack and two daughters at bedside, all questions answered to satisfaction
D/w MDT
Downgraded to IMU level of care 10-23
As of 10-26 can downgrade from IMU to [facility] as she is respiratory sloan continues improving and remains hemodynamically stable
She can be transferred to 2 N, floor that is used to manage patients on high flow nasal cannula in case becomes necessary, pulm will continue to follow closely
Diagnostic Data:
CTA Chest 10-18-2023: Moderate consolidation in the posterior right lung base, as well has patchy airspace opacity in the right lower lobe, consistent with pneumonia. Minor atelectasis versus pneumonia in the left lower lobe. Moderate emphysematous
lung changes. Focal irregular opacity/scarring in the posterior right upper lobe is stable.
CXR 10/21/23: Airspace opacity at the periphery of the mid to lower right lung compatible with pneumonia. Bibasilar atelectasis. No large pleural effusion or pneumothorax. The cardiomediastinal silhouette is stable. Left reverse total shoulder
arthroplasty hardware.
CXR 10-17-2023: Small right pleural effusion. Stable. Tiny left pleural effusion. New Progressed airspace disease in right lower lung field concerning for pneumonia. Mild.
LE Venous Duplex 10-19-2023: No evidence of deep venous thrombosis the lower extremities bilaterally.
ECHO 10/18/23: Normal left ventricular size, wall thickness and systolic function. LV ejection fraction is 60-65%. Mild mitral regurgitation. Moderate tricuspid regurgitation. Estimated PA pressure 45 mmHg. Compared to the previous report 11/08/2017
tricuspid regurgitation reported as moderate percent of the moderate to severe. PA pressure is higher. Previous estimate 25 to 30 mmHg
Subjective Data
-
Date of Service:
Date of Service: October 28, 2023
Chief Complaint: Pulmonary Follow Up (Acute exacerbation COPD/pneumonia)
Subjective:
No major events reported overnight
Clinical improvement continues
High flow nasal cannula now down to mid flow nasal cannula
Sitting in chair, good spirits
Review of Systems
General: Fever (n), Sweats (n), Chills (n) and Satisfactory Appetite
HEENT: Epistaxis (n) and Dysphagia (n)
Cardiopulmonary: Dyspnea, Cough (trace), Wheezing (n) and Chest Pain
GI: Abdominal Pain (n), Nausea (n) and Vomiting
Neuro: Weakness (n)
Objective Data
Data Reviewed
Vital Signs / I&O / Oxygen:
Vital Signs
Temp Pulse Resp BP Pulse Ox
97.2 F 84 22 127/75 95
10/28/23 03:51 10/28/23 04:00 10/28/23 04:00 10/28/23 04:00 10/28/23 04:00
Intake and Output
10/27/23 10/28/23 10/29/23
06:59 06:59 06:59
Intake Total 1660 / 1660 1860 / 1860
Output Total 900 / 900 650 / 650
Balance 760 / 760 1210 / 1210
SaO2 95
Nasal Cannula flow liters per 15
minute
Physical Exam
General: Comfortable and Good Appetite
HEENT: Normocephalic, Anicteric, Thrush (improving) and Other (Large neck)
Cardiovascular: S1-S2, Murmur (n), Rub (n) and Peripheral Edema (n)
Respiratory: Wheeze (None), Crackles (Mild right base), Rhonchi (n), Non-Labored Respirations and Stridor (n)
GI: Soft, Non Distended and Non Tender
Neurology: Awake, Alert, Oriented, AO x 3 and No Motor Deficits (Able to sit up without assistance)
Skin: Cyanosis (n), Jaundice (n) and Rash (n)
Labs/Micro/Reports
Lab Data
10/27/23 04:55
10/27/23 04:55
[2023-10-28] MEDS: SODIUM CHLORIDE 3% FOR INHALATION 1 VIAL INH ×4 (08:04→20:51)
[2023-10-28] MEDS: VENTOLIN NEBULES 2.5 MG INH ×4 (08:04→20:52)
[2023-10-28] MEDS: PULMICORT 0.5 MG INH ×2 (08:04→20:51)
[2023-10-28] MEDS: LIDOCAINE 4% PATCH 1 PATCH TOPICAL (08:05)
[2023-10-28] MEDS: DELTASONE 30 MG PO (08:08)
[2023-10-28] MEDS: MYCOSTATIN ORAL SUSPENSION 5 ML PO ×4 (08:09→21:20)
[2023-10-28] MEDS: RESTASIS 0.05% OPHTHALMIC EMULSION 1 DROPS BOTH EYES ×2 (08:10→21:20)
[2023-10-28] MEDS: COLACE PO (08:10)
[2023-10-28] MEDS: PROTONIX 40 MG PO (08:10)
[2023-10-28] MEDS: VITAMIN D3 (cholecalciferol) 125 MCG PO (08:11)
[2023-10-28] MEDS: MUCINEX 600 MG PO ×2 (08:11→21:19)
[2023-10-28] MEDS: MIRALAX PO (08:11)
[2023-10-28] MEDS: SENOKOT PO (08:11)
[2023-10-28] MEDS: MOTRIN 400 MG PO ×2 (08:54→17:07)
--- NOTE | 2023-10-28 09:18 | PTCARENOTE ---
Pt received OOB in chair. Ambulated to bathroom with stand by assist for cord management. PRN Motrin 400mg PO administered per patient request for 7/10 pain in left flank. Scheduled Lidocaine patch also applied. SaO2 90-96% on 15L midflow.
Percussion vest therapy completed. Lungs coarse rhonchi throughout. Dry nonproductive cough. Sinus tach on feeder operator automatic. HR 100s - 110s. No edema. Pedal pulses palpable. Pt refused bowel regiment, stated 2 large loose bowel movements yesterday.
Voided clear yellow into toilet.
--- NOTE | 2023-10-28 09:38 | W.PN.ID1 ---
Date of Service
Date of Service: October 28, 2023
Today's Communication
- very pleased to see O2 requirements further improving
- would continue steroid wean as feasible
- continue supportive care
Assessment / Plan
Pneumonia due to Adenovirus
COPD Moderate
- very pleased to see O2 requirements further improving
- would continue steroid wean as feasible
- continue supportive care
- droplet and contact precautions - isolation for duration of illness, there can be prolonged viral shedding
- follow clinically
Chief Complaint
-: Pneumonia and Other (adenovirus)
Subjective / Review of Systems
afebrile
bp stable
down to 15L of O2
no labs today, not needed from my perspective
Vital Signs / Physical Exam
Vital Signs
Vital Signs
Temp Pulse Resp BP Pulse Ox
98.1 F 98 20 127/75 95
10/28/23 07:20 10/28/23 08:10 10/28/23 08:10 10/28/23 04:00 10/28/23 08:10
Physical Exam
Constitutional: No Acute Distress
Cardiovascular: Regular Rate and S1/S2; Negative Murmur or Rub
Pulmonary: Clear and Symmetric; Negative Wheezes or Rales
Gastrointestinal: Soft, Non Tender, Non Distended and Normal Bowel Sounds
Skin: Warm and Dry; Negative Rash or Jaundice
Objective Data
Lab Data
Lab Results
10/27/23 04:55
10/27/23 04:55
Estimated Creat Clear 70 ml/min 10/27/23 04:55
Total Bilirubin 0.5 mg/dl (0.2-1.3) 10/22/23 03:54
AST 20 U/L (14-36) 10/22/23 03:54
ALT 17 U/L (0-35) 10/22/23 03:54
Alkaline Phosphatase 67 U/L (38-126) 10/22/23 03:54
Most recent labs reviewed.
Micro Results:
10/18/23 16:45 Influenza Type A (PCR) - Final
Nasalpharynx Not Detected
Influenza Type A (H1) (PCR) - Final
Not Detected
Influenza Type A (H3) (PCR) - Final
Not Detected
Influenza Type B (PCR) - Final
Not Detected
Resp Syncytial Virus Type A (PCR) - Final
Not Detected
Resp Syncytial Virus Type B (PCR) - Final
Not Detected
Adenovirus DNA (PCR) - Final
DETECTED
Human Metapneumovirus (PCR) - Final
Not Detected
Parainfluenza Virus Type 1 (PCR) - Final
Not Detected
Parainfluenza Virus Type 2 (PCR) - Final
Not Detected
Parainfluenza Virus Type 3 (PCR) - Final
Not Detected
Parainfluenza Virus Type 4 - Final
Not Detected
Rhinovirus (PCR) - Final
Not Detected
10/11/23 06:30 Influenza Types A & B (ROSY) - Final
Nasal Swab Negative for Influenza A & B, NAAT
Negative results must be combined with clinical observations
and patient history.
Nucleic Acid Amplification test (NAAT)performed on the
[employer] platform.
10/21/23 CXR : Airspace opacity at the periphery of the mid to lower right lung compatible with pneumonia. Bibasilar atelectasis. No large pleural effusion or pneumothorax. The cardiomediastinal silhouette is stable. Left reverse total shoulder
arthroplasty hardware.
--- NOTE | 2023-10-28 14:39 | W.PN.HOSP.TC ---
Addendum entered and electronically signed by Floyd Alonzo MD 10/28/23 15:21:
She had manifesation of viral severe sepsis with adenovirus pneumonia and secondary respiratory failure
Original Note:
Today's Communication/Plan
-
continue with steroid wean and oxygen support
Assessment / Plan
Assessment / Plan
pt is a 72 year old female
Acute exacerbation of COPD likely due to viral PNA (She had a prior right posterior lower lobe pneumonia which is followed with a repeat CT in July 2023 and it had cleared)--patient presented with new dry cough, progressive shortness of breath,
and actively bronchospastic---cont slow steroid taper, back on IV solumedrol---added pulmicort--CT scan with worsening PNA--levaquin added by ID, then stopped --apprec input--possible viral PNA as adenovirus DNA positive .....now off all abx,
repeat procal negative
ID following
Steroids on wean
Acute hypoxic respiratory failure--persistently hypoxic, now on HI AMITA O2. High A- a gradient suspect possibly sec to decreased DLCO or intrapulmonary shunting. No evidence of PE. Pulm following.
With persistent hypoxia , no complications of pneumonia on the chest x-ray report, no hypercapnia with still pursue first thromboembolic disease with repeat CT chest and ultrasound of the legs -both neg for PE/VTE respectively. CW O2 support and
wean as able
Improving FIO2 -now on 10L mid flow
Hyperlipidemia-continue home medication
Full code
Tx to tele
Anticipated Discharge: > 48 hours
Subjective/Interval History
-
Date of Service: October 28, 2023
Feels improved.
currently on 10 L of oxygen. Off of high flow nasal cannula.
Denies shortness of breath at rest.
No fever or chills.
No chest pain
Objective Data
-
Vital Signs:
Vital Signs
Temp Pulse Resp BP Pulse Ox
98.2 F 100 20 115/66 97
10/28/23 14:19 10/28/23 14:19 10/28/23 14:19 10/28/23 14:19 10/28/23 14:30
I&O
10/27/23 10/28/23 10/29/23
06:59 06:59 06:59
Intake Total 1660 / 1660 1860 / 1860
Output Total 900 / 900 650 / 650
Balance 760 / 760 1210 / 1210
Review of Systems
-
EENT: Denies Sore Throat
Respiratory: Denies Cough
Neuro: Denies Dizzy
Physical Exam
-
General: No Apparent Distress
HEENT: Moist Mucous Membranes
Respiratory: Clear to Auscultation
Cardiac: Regular Rhythm and S1/S2
GI: Soft
Neuro: AO x 3
[2023-10-28] MEDS: LOVENOX 40 MG SC (17:06)
[2023-10-28] MEDS: CRESTOR 5 MG PO (17:06)
[2023-10-28] MEDS: COLACE 100 MG PO (21:19)
[2023-10-28] MEDS: SENOKOT 17.1999999999999993 MG PO (21:19)
[2023-10-28] MEDS: TESSALON PERLES 100 MG PO (21:22)
[2023-10-28] MEDS: MELATONIN 10 MG PO (21:25)
[2023-10-28] MEDS: TYLENOL 1000 MG PO (21:29)
[2023-10-29 06:00] VITALS: BMI 29.3
[2023-10-29] MEDS: SODIUM CHLORIDE 3% FOR INHALATION 1 VIAL INH ×4 (06:09→17:49)
[2023-10-29] MEDS: PULMICORT 0.5 MG INH ×2 (06:09→17:49)
[2023-10-29] MEDS: VENTOLIN NEBULES 2.5 MG INH ×4 (06:09→17:49)
[2023-10-29 07:45] VITALS: BP 127/51
[2023-10-29] MEDS: MYCOSTATIN ORAL SUSPENSION 5 ML PO ×4 (07:52→20:02)
[2023-10-29] MEDS: DELTASONE 30 MG PO (07:52)
[2023-10-29] MEDS: VITAMIN D3 (cholecalciferol) 125 MCG PO (07:53)
[2023-10-29] MEDS: PROTONIX 40 MG PO (07:53)
[2023-10-29] MEDS: TYLENOL 1000 MG PO ×2 (07:53→18:18)
[2023-10-29] MEDS: MUCINEX 600 MG PO ×2 (07:53→20:00)
[2023-10-29] MEDS: RESTASIS 0.05% OPHTHALMIC EMULSION 1 DROPS BOTH EYES ×2 (07:54→20:01)
[2023-10-29] MEDS: SENOKOT PO (07:55)
[2023-10-29] MEDS: MIRALAX PO (07:55)
[2023-10-29] MEDS: LIDOCAINE 4% PATCH TOPICAL (07:56)
[2023-10-29] MEDS: COLACE PO (08:03)
--- NOTE | 2023-10-29 11:09 | CM ---
CM reviewed chart. Pt appears to be improving on oxygen needs, noted 6L vs previous 15L. CM attempted to meet with pt at bedside but currently recieving chest PT.
Anticipated discharge dispo home with VN, will need to follow up with pt to offer choice of agency. Noted preference is to return home and plans to move to a [address] community in November after settlement. Pt is new to oxygen. CM following for home oxygen
needs.
--- NOTE | 2023-10-29 11:38 | W.PN.ID1 ---
Date of Service
Date of Service: October 29, 2023
Today's Communication
supportive care, note continued improvement
Assessment / Plan
Pneumonia due to Adenovirus
COPD Moderate
- O2 requirements continue to improve
- would continue steroid wean as feasible
- continue supportive care
- droplet and contact precautions - isolation for duration of illness, there can be prolonged viral shedding
- follow clinically
Chief Complaint
-: Pneumonia and Other (adenovirus)
Subjective / Review of Systems
afebrile
bp stable
O2 requirements continue to improve
shes very pleased at her improvement
Vital Signs / Physical Exam
Vital Signs
Vital Signs
Temp Pulse Resp BP Pulse Ox
98.2 F 94 18 127/51 94
10/29/23 07:45 10/29/23 10:56 10/29/23 10:56 10/29/23 07:45 10/29/23 11:36
Physical Exam
Constitutional: No Acute Distress
Cardiovascular: Regular Rate and S1/S2; Negative Murmur or Rub
Pulmonary: Clear and Symmetric; Negative Wheezes or Rales
Gastrointestinal: Soft, Non Tender, Non Distended and Normal Bowel Sounds
Skin: Warm and Dry; Negative Rash or Jaundice
Objective Data
Lab Data
Lab Results
10/27/23 04:55
10/27/23 04:55
Estimated Creat Clear 70 ml/min 10/27/23 04:55
Total Bilirubin 0.5 mg/dl (0.2-1.3) 10/22/23 03:54
AST 20 U/L (14-36) 10/22/23 03:54
ALT 17 U/L (0-35) 10/22/23 03:54
Alkaline Phosphatase 67 U/L (38-126) 10/22/23 03:54
Most recent labs reviewed.
Micro Results:
10/18/23 16:45 Influenza Type A (PCR) - Final
Nasalpharynx Not Detected
Influenza Type A (H1) (PCR) - Final
Not Detected
Influenza Type A (H3) (PCR) - Final
Not Detected
Influenza Type B (PCR) - Final
Not Detected
Resp Syncytial Virus Type A (PCR) - Final
Not Detected
Resp Syncytial Virus Type B (PCR) - Final
Not Detected
Adenovirus DNA (PCR) - Final
DETECTED
Human Metapneumovirus (PCR) - Final
Not Detected
Parainfluenza Virus Type 1 (PCR) - Final
Not Detected
Parainfluenza Virus Type 2 (PCR) - Final
Not Detected
Parainfluenza Virus Type 3 (PCR) - Final
Not Detected
Parainfluenza Virus Type 4 - Final
Not Detected
Rhinovirus (PCR) - Final
Not Detected
10/11/23 06:30 Influenza Types A & B (ROSY) - Final
Nasal Swab Negative for Influenza A & B, NAAT
Negative results must be combined with clinical observations
and patient history.
Nucleic Acid Amplification test (NAAT)performed on the
[employer] platform.
10/21/23 CXR : Airspace opacity at the periphery of the mid to lower right lung compatible with pneumonia. Bibasilar atelectasis. No large pleural effusion or pneumothorax. The cardiomediastinal silhouette is stable. Left reverse total shoulder
arthroplasty hardware.
--- NOTE | 2023-10-29 13:09 | W.PN.HOSP.TC ---
Today's Communication/Plan
-
continue with oxygen wean.
Assessment / Plan
Assessment / Plan
pt is a 72 year old female
Acute exacerbation of COPD likely due to viral PNA (She had a prior right posterior lower lobe pneumonia which is followed with a repeat CT in July 2023 and it had cleared)--patient presented with new dry cough, progressive shortness of breath,
and actively bronchospastic---cont slow steroid taper, back on IV solumedrol---added pulmicort--CT scan with worsening PNA--levaquin added by ID, then stopped --apprec input--possible viral PNA as adenovirus DNA positive .....now off all abx,
repeat procal negative
ID following
Steroids on wean
Acute hypoxic respiratory failure--persistently hypoxic, now on HI AMITA O2. High A- a gradient suspect possibly sec to decreased DLCO or intrapulmonary shunting. No evidence of PE. Pulm following.
With persistent hypoxia , no complications of pneumonia on the chest x-ray report, no hypercapnia with still pursue first thromboembolic disease with repeat CT chest and ultrasound of the legs -both neg for PE/VTE respectively. CW O2 support and
wean as able
Improving FIO2 -now on 4 L mid flow
Hyperlipidemia-continue home medication
Full code
Anticipated Discharge: 24 - 48 hours
Subjective/Interval History
-
Date of Service: October 29, 2023
Continued improvement with the breathing. No overnight events.
Objective Data
-
Vital Signs:
Vital Signs
Temp Pulse Resp BP Pulse Ox
98.2 F 94 18 127/51 94
10/29/23 07:45 10/29/23 10:56 10/29/23 10:56 10/29/23 07:45 10/29/23 11:36
I&O
10/28/23 10/29/23 10/30/23
06:59 06:59 06:59
Intake Total 1859 / 1859 570 / 570
Output Total 650 / 650
Balance 1210 / 1210 570 / 570
Review of Systems
-
Cardiac: Denies Chest Pain
Abdomen/GI: Denies Nausea, Vomiting or Diarrhea
Neuro: Denies Dizzy
Physical Exam
-
General: No Apparent Distress
HEENT: Moist Mucous Membranes
Respiratory: Clear to Auscultation and Non Labored Respirations; Negative Accessory Resp Muscle Use
Cardiac: Regular Rhythm and S1/S2
Neuro: AO x 3
[2023-10-29 15:00] VITALS: BP 115/59
--- NOTE | 2023-10-29 15:56 | W.PN.PUL3 ---
Today's Communication / Plan
-
O2
CPT
BDs
Dispo
Assessment
-
Assessment:
Mrs Nicki Womack is a 72-year-old female with history of recent COVID infection 05/18/2023, right lower lobe pneumonia identified at [facility] with improvement radiographically, left shoulder surgery April 2023, heartburn, questionable
COPD, significant smoking history who presents with 3 days of increased shortness of breath. Unfortunate patient did not start her maintenance regimen as discussed in the past for obstructive lung disease. Chest x-ray suggest possible right lower
lobe process. Admitted for COPD exacerbation 10/11/2023
Known to our outpatient pulmonary service, admitted on October 10 from home through emergency department, seen same day well Dr. Sanchez who follows with her in the office. Pulmonary has continue following the patient since admission for acute hypoxemic
respiratory failure, the patient is not on oxygen at home, she was diagnosed with adenovirus respiratory infection and is being actively followed by the ID service with a diagnosis of right lower lobe and right middle pneumonia, right middle lobe
and right lower atelectasis. Reportedly she has a history of mild interstitial lung disease per chest CT along with few scattered nodules in the right upper lobe, known submillimeter sized as well as mild to moderate centrilobular emphysema. No
has had significant history of smoking quitting 20 years ago with a 12-bffo-rdsw history of smoking. Also has a history of latent to close infection. Outpatient she is on albuterol inhaler and tiotropium�olodaterol (Stiolto).
Due to persistent hypoxemia requiring high flow nasal cannula, the patient was transferred to the ICU last night on October 22, reportedly BiPAP was attempted but she could not tolerate it, the patient continue on high flow nasal cannula. Of note, in
the spite of hypoxemia on pulse oximetry, pO2 on arterial blood gases show hyperoxia on supplemental oxygen via high flow.
Seen at ICU -14, she was accompanied by one of her daughters, case was reviewed and discussed in detail with them, also discussed case with Dr. Alonzo from the hospitalist service
Impression.
Acute hypoxic respiratory insufficiency
86% on room air, refractory hypoxemia on O2 NC and HFNC, transferred to IMU 10/20, transferred to ICU on evening 10-22
Multifactorial: adenovirus infection, AECOPD, relatively recent h/o COVID disease, COPD in patient with past h/o heavy smoking, moderate to severe apical emphysema and baseline mild ILD on CT, mild MR, atelectasis
Acute COPD exacerbation
Right lower lobe/RML pneumonia - pt worsening clinically and radiographically on 10/21/2023
Recent right lower lobe pneumonia, improved radiographically July 2023
RML/RLL atelectasis mainly seen on CXR from 10/15/2023
Acute mild reproducible lower left rib cage pain: Costochondritis
Conditions present prior to admission
Mild interstitial lung disease per CT chest
Few scattered nodules mainly in RUL including two 6mm nodules
Recent left apical nodule 5 mm per left shoulder imaging, February 2023 ([facility])
Mild-moderate centrilobular emphysema per CT imaging
Hx of Covid April 2023
[id number] history of smoking, quit 20 years ago (she does not qualify for LDCT chest imaging for lung cancer screening)
History of latent tuberculosis infection
Subjective dyspnea, chronic
Plan:
Adm DH 10-10
Transferred to IMU 10-20
Transferred to ICU 10-22
Acute hypoxic respiratory insufficiency, not on home O2 as outpatient
86% on room air, refractory hypoxemia on O2 NC and HFNC, transferred to IMU 10/20, transferred to ICU on evening 10-22
Multifactorial: adenovirus infection, AECOPD, relatively recent h/o COVID disease, COPD in patient with past h/o heavy smoking, baseline moderate to severe apical emphysema and mild ILD on CT, progressive atelectasis (compressive [secretions
related] and resorptive [high O2 supplementation related]), mild MR, interim worsening of pulm infiltrates (c/w adenovirus pneumonia)
Continue O2 protocol
Was on HFNC 24/ for several days, could not tolerate BPAP
Reassuringly in spite of hypoxemia on sometimes marginal POx signal, PO2 on ABG showed hyperoxia on 10-22
Reassuringly resp sloan patient does not feel she is deterioration but is understandably frustrated with her prolonged admission
Of note, ABG on HFNC showed hypoxemia down to 56, wondering if PO2 on previous ABG was due to presence of air bubble and consequently falsely elevated
Monitor for potential epistaxis in setting of high O2 dosing, patient aware
D-dimer 10-23: significantly elevated to 6.36 ug/mL FEU (of note, age-adjusted D-dimer calculated at 0.71 ug/mL). Noted BNP negative on 10-17 and . In retrospect, ^D-d likely due to acute illness and pneumonia/pneumonitis
Rechecked SABRA doppler: negative (negative on 10-18)
Chest CTA 10-17 negative for PE
Repeat CTA 10-23: no PE but worsening pulm infiltrates and atelectasis
Able to wean down HFNC to off
Currently on MFNC 15 L with POx up to 94^=% at times
Continue to wean fiO2 as much as possible for POx>=88% given oligosymptomatic re dyspnea and cough
D/w patient and family, will keep POx readings in context of symptoms to avoid excessive/unnecessary adm of O2
Currently on O2 LPM, POx 94% at rest
Check O2 needs PTD (not on home O2)
Limited data on use of cidofovir and noted high risk profile for renal failure, and less data on use of brincidofovir on adenovirus pneumonia
Appreciate ID efforts to look into expanded access and clinical trials for brincidofovir; unfortunately the adenovirus trials are full and the drug is out of stock for expanded access (not an option at this time)
Checked Ig panel to rule out hypogammaglobulinemia associated to adenov pn, unclear if IVIG will be of benefit, fortunately Igs normal
Chest CT findings not compatible with activation of LTBI
In clinical context doubt methemoglobinemia is an issue
Encouraged PT/OT
IS
Acapella valve
OOB as much as tolerated
Imaging reviewed
Chest x-ray with mild interstitial changes at the base, progressive nodular consolidation right base
CTA chest 10/18/2023 with right lower lobe consolidation, no PE (baseline CT with moderate to severe apical emphysema and mild ILD changes)
Repeat CXR 10-22 and c/w all prior CXRs since adm showed dynamic changes of infiltration at R>L bases
Recently identified adenovirus noted 10-17
She initially improved, then worsened with worsened infiltrate per imaging
She remains on Solu-Medrol, no wheezing
Doubt will require pulse dose steroids
Weaning CS down to prednisone 40 mg starting 10-25, followed by quick taper to off
Was not candidate for BAL at time of severe hypoxemia. No current indication given significant improvement
History of COVID illness in May per daughter which started her decline
Continue CPT
Was on chest percussion twice daily and 3% saline with sessions bid prior to transfer to ICU
Changed CPT to VEST qid along alb nebs and hypertonic saline nebs 10-23
Strongly advised to use VEST regularly for as long as tolerated duration and intensity of percussion per session to enhance effect of CPT in improving atelectasis
Continue CPT as above, d/c upon discharge
D/c DNs to avoid dryness of secretions due to ipratropium related anticholinergic side effect (also d/c prn diphenhydramine for same reason)
Continue Pulmicort
CXR in AM 10-26 with persistent and denser basilar atelectatic changes however, patient is clinically improved as compared to prior days even with some weaning from FiO2 via high flow nasal cannula
Given significant clinical improvement in last 48 hrs, I see no need for repeat CXR or CT at this juncture
Acute left lower rib cage pain, reproducible, costochondritis
Started as needed use of ibuprofen and lidocaine patch on October 26, continue
No current evidence of fluid overload
Repeat proBNP remains normal 10-22
ECHO 10-17 reviewed and stable c/w October 2017
She had a left shoulder film in February 2023 at [facility] which commented on a 5 mm left upper lobe nodule
She does have two RUL 6mm nodules that are stable between CT chest imaging on 05/2023 to 07/2023
This can be followed as an outpatient
Insomnia, on outpatient melatonin
Compounded by acute illness, hospital environment, high dose CS
Weaning down CS
Continue melatonin at 10 mg qhs for now instead of prn
Must time nocturnal dosing at 30-45 min of chosen sleep time and procure dark bedroom environment to facilitate action of melatonin
Will not recommend bzd hypnotics due to side effects and limited inpatient hypnotic options
Will benefit from appropriate exposure to daylight during daytime and darkness exposure at night time
DVT prophylaxis: enoxaparin
GI prophylaxis: Protonix daily
Downgraded to IMU level of care 10-23
As of 10-26 can downgrade from IMU to [facility] as she is respiratory sloan continues improving and remains hemodynamically stable
Transferred to [facility] 10-27
Disposition efforts, no objection for d/c tomorrow if otherwise stable
Will follow with Dr Sanchez in 2 wks p d/c, pls arrange for CXR PA/lat prior to visit
D/w Mrs Womack and two daughters at bedside on a daily basis, all questions answered to satisfaction
Diagnostic Data:
CTA Chest 10-18-2023: Moderate consolidation in the posterior right lung base, as well has patchy airspace opacity in the right lower lobe, consistent with pneumonia. Minor atelectasis versus pneumonia in the left lower lobe. Moderate emphysematous
lung changes. Focal irregular opacity/scarring in the posterior right upper lobe is stable.
CXR 10/21/23: Airspace opacity at the periphery of the mid to lower right lung compatible with pneumonia. Bibasilar atelectasis. No large pleural effusion or pneumothorax. The cardiomediastinal silhouette is stable. Left reverse total shoulder
arthroplasty hardware.
CXR 10-17-2023: Small right pleural effusion. Stable. Tiny left pleural effusion. New Progressed airspace disease in right lower lung field concerning for pneumonia. Mild.
LE Venous Duplex 10-19-2023: No evidence of deep venous thrombosis the lower extremities bilaterally.
ECHO 10/18/23: Normal left ventricular size, wall thickness and systolic function. LV ejection fraction is 60-65%. Mild mitral regurgitation. Moderate tricuspid regurgitation. Estimated PA pressure 45 mmHg. Compared to the previous report 11/08/2017
tricuspid regurgitation reported as moderate percent of the moderate to severe. PA pressure is higher. Previous estimate 25 to 30 mmHg
Subjective Data
-
Date of Service:
Date of Service: October 29, 2023
Chief Complaint: Pulmonary Follow Up (Acute exacerbation COPD/pneumonia)
Subjective:
No major events reported overnight
Significant and progressive improvement in the last 48 hours: Came off high flow nasal cannula to mid flow nasal cannula, currently down to only 2 L/min
Respiratory symptoms significantly improved
Patient is looking forward to be discharged soon
Devoted daughter at bedside, second daughter return back to [place] given the significant improvement on his mother's respiratory condition
Review of Systems
General: Fever (n), Sweats (n), Chills (n) and Satisfactory Appetite
HEENT: Epistaxis (n) and Dysphagia (n)
Cardiopulmonary: Dyspnea (n at rest on O2 2L), Cough (resolving), Sputum Production (n), Wheezing (n) and Chest Pain (n)
GI: Abdominal Pain (n), Nausea (n) and Vomiting (n)
Neuro: Weakness
Objective Data
Data Reviewed
Vital Signs / I&O / Oxygen:
Vital Signs
Temp Pulse Resp BP Pulse Ox
97.9 F 95 18 115/59 94
10/29/23 15:00 10/29/23 15:00 10/29/23 15:00 10/29/23 15:00 10/29/23 15:48
Intake and Output
10/28/23 10/29/23 10/30/23
06:59 06:59 06:59
Intake Total 1860 / 1860 570 / 570
Output Total 650 / 650
Balance 1210 / 1210 570 / 570
SaO2 94
Nasal Cannula flow liters per 2
minute
Physical Exam
General: Comfortable and Good Appetite
HEENT: Normocephalic, Anicteric, Thrush (improving) and Other (Large neck)
Cardiovascular: S1-S2, Murmur (n), Rub (n) and Peripheral Edema (n)
Respiratory: Wheeze (None), Crackles (Mild right base), Rhonchi (n), Non-Labored Respirations and Stridor (n)
GI: Soft, Non Distended and Non Tender
Neurology: Awake, Alert, Oriented, AO x 3 and No Motor Deficits (Able to sit up without assistance)
Skin: Cyanosis (n), Jaundice (n) and Rash (n)
Labs/Micro/Reports
Lab Data
10/27/23 04:55
10/27/23 04:55
[2023-10-29] MEDS: LOVENOX 40 MG SC (18:18)
[2023-10-29] MEDS: CRESTOR 5 MG PO (18:18)
[2023-10-29] MEDS: COLACE 100 MG PO (20:00)
[2023-10-29] MEDS: TESSALON PERLES 100 MG PO (20:01)
[2023-10-29] MEDS: MELATONIN 10 MG PO (20:01)
[2023-10-29] MEDS: SENOKOT 17.1999999999999993 MG PO (20:02)
[2023-10-29 23:17] VITALS: BP 117/63
[2023-10-30] MEDS: PULMICORT 0.5 MG INH (07:35)
[2023-10-30] MEDS: VENTOLIN NEBULES 2.5 MG INH ×3 (07:35→15:38)
[2023-10-30] MEDS: SODIUM CHLORIDE 3% FOR INHALATION 1 VIAL INH ×3 (07:35→15:38)
[2023-10-30] MEDS: RESTASIS 0.05% OPHTHALMIC EMULSION 1 DROPS BOTH EYES (07:47)
[2023-10-30] MEDS: PROTONIX 40 MG PO (07:47)
[2023-10-30] MEDS: MYCOSTATIN ORAL SUSPENSION 5 ML PO ×3 (07:47→15:51)
[2023-10-30] MEDS: LIDOCAINE 4% PATCH 1 PATCH TOPICAL (07:47)
[2023-10-30] MEDS: DELTASONE 20 MG PO (07:48)
[2023-10-30] MEDS: MUCINEX 600 MG PO (07:48)
[2023-10-30] MEDS: VITAMIN D3 (cholecalciferol) 125 MCG PO (07:49)
[2023-10-30 07:50] VITALS: BP 122/76
[2023-10-30] MEDS: MIRALAX PO (07:51)
[2023-10-30] MEDS: SENOKOT PO (07:51)
[2023-10-30] MEDS: COLACE PO (07:51)
[2023-10-30] MEDS: MOTRIN 400 MG PO (08:00)
--- NOTE | 2023-10-30 10:05 | W.PN.PUL3 ---
Today's Communication / Plan
-
O2
CPT
BDs
Patient awaiting discharge home today. She will need repeat imaging in about 4-6 weeks to follow pneumonia to resolution
Pulmonary service will now sign off. Please reconsult if there are any additional questions/concerns, or if patient's respiratory status deteriorates.
Assessment
-
Assessment:
Mrs Nicki Womack is a 72-year-old female with history of recent COVID infection 05/18/2023, right lower lobe pneumonia identified at [facility] with improvement radiographically, left shoulder surgery April 2023, heartburn, questionable
COPD, significant smoking history who presents with 3 days of increased shortness of breath. Unfortunate patient did not start her maintenance regimen as discussed in the past for obstructive lung disease. Chest x-ray suggest possible right lower
lobe process. Admitted for COPD exacerbation 10/11/2023
Known to our outpatient pulmonary service, admitted on October 10 from home through emergency department, seen same day well Dr. Sanchez who follows with her in the office. Pulmonary has continue following the patient since admission for acute hypoxemic
respiratory failure, the patient is not on oxygen at home, she was diagnosed with adenovirus respiratory infection and is being actively followed by the ID service with a diagnosis of right lower lobe and right middle pneumonia, right middle lobe
and right lower atelectasis. Reportedly she has a history of mild interstitial lung disease per chest CT along with few scattered nodules in the right upper lobe, known submillimeter sized as well as mild to moderate centrilobular emphysema. No
has had significant history of smoking quitting 20 years ago with a [id number] history of smoking. Also has a history of latent to close infection. Outpatient she is on albuterol inhaler and tiotropium�olodaterol (Stiolto).
Due to persistent hypoxemia requiring high flow nasal cannula, the patient was transferred to the ICU last night on October 22, reportedly BiPAP was attempted but she could not tolerate it, the patient continue on high flow nasal cannula. Of note, in
the spite of hypoxemia on pulse oximetry, pO2 on arterial blood gases show hyperoxia on supplemental oxygen via high flow.
Seen at ICU 10-23, she was accompanied by one of her daughters, case was reviewed by the Info Analyst and discussed in detail with them, also discussed case with Dr. Alonzo from the hospitalist service
Impression.
Acute hypoxic respiratory insufficiency due to multifocal PNA (progressed from RML/RLLL pneumonia to bilateral starting on 10/18/2023 and clearly seen bilaterally on CXR from 10/23/2023
86% on room air, refractory hypoxemia on O2 NC and HFNC, transferred to IMU 10/20, transferred to ICU on evening 10-22
Multifactorial: adenovirus infection, AECOPD, relatively recent h/o COVID disease, h/o heavy smoking with moderate to severe apical emphysema and baseline mild ILD on CT, mild MR, atelectasis
Acute COPD exacerbation (Dx on 10/18/2023)
Viral pneumonia due to adenovirus
Right lower lobe/RML pneumonia - pt worsening clinically and radiographically on 10/21/2023
Recent right lower lobe pneumonia Dx via CTAon 06/02/2023, improved radiographically July 2023
RML/RLL atelectasis mainly seen on CXR from 10/15/2023
Acute mild reproducible lower left rib cage pain: Costochondritis
Conditions present prior to admission
Mild interstitial lung disease per CT chest
Few scattered nodules mainly in RUL including two 6mm nodules
Recent left apical nodule 5 mm per left shoulder imaging, February 2023 ([facility])
Mild-moderate centrilobular emphysema per CT imaging
Hx of Covid April 2023
[id number] history of smoking, quit 20 years ago (she does not qualify for LDCT chest imaging for lung cancer screening)
History of latent tuberculosis infection
Subjective dyspnea, chronic
Plan:
Adm DH 10-10
Transferred to IMU 10-20
Transferred to ICU 10-22 --> downgraded to med-surg on 10/27 and now awaiting discharge home
Acute hypoxic respiratory insufficiency, not on home O2 as outpatient
86% on room air, refractory hypoxemia on O2 NC and HFNC, transferred to IMU 10/20, transferred to ICU on evening 10-22
Multifactorial: adenovirus infection, AECOPD, relatively recent h/o COVID disease, COPD in patient with past h/o heavy smoking, baseline moderate to severe apical emphysema and mild ILD on CT, progressive atelectasis (compressive [secretions
related] and resorptive [high O2 supplementation related]), mild MR, interim worsening of pulm infiltrates (c/w adenovirus pneumonia)
Continue O2 protocol to maintain SpO2>88%
Was on HFNC 02/01 for several days, could not tolerate BPAP
Reassuringly in spite of hypoxemia on sometimes marginal POx signal, PO2 on ABG showed hyperoxia on 10-22
Reassuringly resp sloan patient does not feel she is deterioration but is understandably frustrated with her prolonged admission
Of note, ABG on HFNC showed hypoxemia down to 56, wondering if PO2 on previous ABG was due to presence of air bubble and consequently falsely elevated
Monitor for potential epistaxis in setting of high O2 dosing, patient aware
D-dimer 10-23: significantly elevated to 6.36 ug/mL FEU (of note, age-adjusted D-dimer calculated at 0.71 ug/mL). Noted BNP negative on 10-17 and . In retrospect, ^D-d likely due to acute illness and pneumonia/pneumonitis
Rechecked SABRA doppler: negative (negative on 10-18)
Chest CTA 10-17 negative for PE
Repeat CTA 10-23: no PE but worsening pulm infiltrates and atelectasis to RLL and lingula
D/w patient and family, will keep POx readings in context of symptoms to avoid excessive/unnecessary adm of O2
Check walking oximetry prior to discharge (not on home O2) --> done today and she requires 2L/min with activity, none at rest
Limited data on use of cidofovir and noted high risk profile for renal failure, and less data on use of brincidofovir on adenovirus pneumonia
Appreciate ID efforts to look into expanded access and clinical trials for brincidofovir; unfortunately the adenovirus trials are full and the drug is out of stock for expanded access (not an option at this time)
Checked Ig panel to rule out hypogammaglobulinemia associated to adenov pn, unclear if IVIG will be of benefit, fortunately Igs normal as of 10/24/[address] findings not compatible with activation of LTBI
In clinical context doubt methemoglobinemia is an issue
Encouraged PT/OT
IS
Acapella valve
OOB as much as tolerated
Recently identified adenovirus noted 10-17
She initially improved, then worsened with worsened infiltrate per imaging
She is s/p Solu-Medrol and now on prednisone taper - taper steroids as tolerated; may need more prolonged taper considering she has COPD with severe exacerbation; if she ends up back on 20mg or greater dose of steroids then she will need PCP ppx no
wheezing
Was not candidate for BAL at time of severe hypoxemia. No current indication given significant improvement
History of COVID illness in May per daughter which started her decline
Continue CPT
Was on chest percussion twice daily and 3% saline with sessions bid prior to transfer to ICU
Changed CPT to VEST qid along alb nebs and hypertonic saline nebs 10-23
Strongly advised to use VEST regularly for as long as tolerated duration and intensity of percussion per session to enhance effect of CPT in improving atelectasis
Continue CPT as above, d/c upon discharge
D/c DNs to avoid dryness of secretions due to ipratropium related anticholinergic side effect (also d/c prn diphenhydramine for same reason)
Continue Pulmicort;DC home on triple inhaler therapy with Trelegy vs Breztri with nebulizer for prn use
CXR in AM 10-26 with persistent and denser basilar atelectatic changes however, patient is clinically improved as compared to prior days even with some weaning from FiO2 via high flow nasal cannula
Acute left lower rib cage pain, reproducible, costochondritis
Started as needed use of ibuprofen and lidocaine patch on October 26, continue
No current evidence of fluid overload
Repeat proBNP remains normal 10-22
ECHO 10-17 reviewed and stable c/w October 2017
She had a left shoulder film in February 2023 at [facility] which commented on a 5 mm left upper lobe nodule
She does have two RUL 6mm nodules that are stable between CT chest imaging on 05/2023 to 07/2023
This can be followed as an outpatient
Insomnia, on outpatient melatonin
Compounded by acute illness, hospital environment, high dose CS
Weaning down CS
Continue melatonin at 10 mg qhs for now instead of prn
Must time nocturnal dosing at 30-45 min of chosen sleep time and procure dark bedroom environment to facilitate action of melatonin
Will not recommend bzd hypnotics due to side effects and limited inpatient hypnotic options
Will benefit from appropriate exposure to daylight during daytime and darkness exposure at night time
DVT prophylaxis: enoxaparin
GI prophylaxis: Protonix daily
Patient awaiting discharge home today.
Will follow with Dr Sanchez in 2 wks p d/c, and she will need repeat CXR in 4-6 weeks to follow pneumonia to resolution
Pulmonary service will now sign off. Thank you for allowing us to be involved in the care of this patient. Please reconsult if there are any additional questions/concerns, or if patient's respiratory status deteriorates.
I answered all the patient's questions today; previously, Dr. Mcclain had d/w Mrs Womack and two daughters at bedside on a daily basis, all questions answered to satisfaction
Total time spent today was 35 minutes for this encounter. Time includes reviewing laboratory test/imaging results, reviewing pertinent medical records, obtaining and reviewing medical history, performing an appropriate exam, ordering medications,
tests and procedures. Time also includes documentation of this encounter, coordinating patient care and communicating with other healthcare professionals. Total time does not include separately billed tests performed on this date of service.
Diagnostic Data:
CTA Chest 10-18-2023: Moderate consolidation in the posterior right lung base, as well has patchy airspace opacity in the right lower lobe, consistent with pneumonia. Minor atelectasis versus pneumonia in the left lower lobe. Moderate emphysematous
lung changes. Focal irregular opacity/scarring in the posterior right upper lobe is stable.
CXR 10/21/23: Airspace opacity at the periphery of the mid to lower right lung compatible with pneumonia. Bibasilar atelectasis. No large pleural effusion or pneumothorax. The cardiomediastinal silhouette is stable. Left reverse total shoulder
arthroplasty hardware.
CXR 10-17-2023: Small right pleural effusion. Stable. Tiny left pleural effusion. New Progressed airspace disease in right lower lung field concerning for pneumonia. Mild.
LE Venous Duplex 10-19-2023: No evidence of deep venous thrombosis the lower extremities bilaterally.
ECHO 10/18/23: Normal left ventricular size, wall thickness and systolic function. LV ejection fraction is 60-65%. Mild mitral regurgitation. Moderate tricuspid regurgitation. Estimated PA pressure 45 mmHg. Compared to the previous report 11/08/2017
tricuspid regurgitation reported as moderate percent of the moderate to severe. PA pressure is higher. Previous estimate 25 to 30 mmHg
Subjective Data
-
Date of Service:
Date of Service: October 30, 2023
Chief Complaint: Pulmonary Follow Up (Acute exacerbation COPD/pneumonia)
Subjective:
Patient seen and evaluated at bedside. She feels well, and is awaiting discharge home. She ready has a nebulizer in-hand and I answered all her questions. Currently on 2 L/min nasal cannula saturating 95%.
Review of Systems
General: Other (Negative unless mentioned above)
Objective Data
Data Reviewed
Vital Signs / I&O / Oxygen:
Vital Signs
Temp Pulse Resp BP Pulse Ox
98.4 F 95 18 122/76 93
10/30/23 07:50 10/30/23 07:50 10/30/23 07:50 10/30/23 07:50 10/30/23 10:36
Intake and Output
10/29/23 10/30/23 10/31/23
06:59 06:59 06:59
Intake Total 570 / 570 810 / 810
Balance 570 / 570 810 / 810
SaO2 93
Nasal Cannula flow liters per 2
minute
Physical Exam
General: Comfortable and Good Appetite
HEENT: Normocephalic, Anicteric, Moist Mucous Membranes and Other (Thick neck)
Cardiovascular: S1-S2, Rub (n) and Peripheral Edema (n)
Respiratory: Wheeze (None), Crackles (Negative), Rhonchi (n), Non-Labored Respirations and Stridor (n)
GI: Soft, Non Distended and Non Tender
Neurology: AO x 3 and No Motor Deficits (Able to sit up without assistance)
Skin: Cyanosis (n), Jaundice (n) and Rash (n)
Labs/Micro/Reports
Lab Data
10/27/23 04:55
10/27/23 04:55
--- NOTE | 2023-10-30 10:07 | CM ---
Addendum entered by Doris Meyers RN 10/30/23 10:48:
Plan: Discharge to home with VN and home O2 and nebulizer through [facility].
Original Note:
Reviewed the chart notes. IMM placed on chart. Patient will need home O2 evaluation. CM continues to be available to patient/family and is monitoring medical plan for needs at discharge.
Plan: Discharge to home with VN and possibly home O2.
--- NOTE | 2023-10-30 10:26 | W.PN.HOSP.TC ---
Today's Communication/Plan
-
Home O2 eval
DC
Assessment / Plan
Assessment / Plan
pt is a 72 year old female
Acute exacerbation of COPD likely due to viral PNA
PNA sec to adenovirus
Acute hypoxic respiratory failure
Improved pulmonary status. Reached clincal stability for DC. Currently on 2 L. Check home O2 eval and discharge home. Steroid wean started which I would continue on discharge.
Hyperlipidemia-continue home medication
Full code
Discussed with patient the diagnosis, treatments and follow-up plan.
Total time of discharge 32 minutes
Discussed with case management regarding need of home O2
Anticipated Discharge: Today
Subjective/Interval History
-
Date of Service: October 30, 2023
Feels continuously improved. Currently on 2 L of oxygen. Denies shortness of breath. Ambulating better without much shortness of breath like preadmission. No fever or chills.
Objective Data
-
Vital Signs:
Vital Signs
Temp Pulse Resp BP Pulse Ox
98.4 F 95 18 122/76 94
10/30/23 07:50 10/30/23 07:50 10/30/23 07:50 10/30/23 07:50 10/30/23 07:50
I&O
10/29/23 10/30/23 10/31/23
06:59 06:59 06:59
Intake Total 570 / 570 810 / 810
Balance 570 / 570 810 / 810
Review of Systems
-
Cardiac: Denies Chest Pain
Abdomen/GI: Denies Abdominal Pain, Nausea or Vomiting
Neuro: Denies Dizzy
Physical Exam
-
General: No Apparent Distress
HEENT: Moist Mucous Membranes
Respiratory: Clear to Auscultation and Non Labored Respirations; Negative Accessory Resp Muscle Use
Cardiac: Regular Rhythm and S1/S2
Neuro: AO x 3
Data Reviewed
-
Labs: Labs Reviewed by me
--- NOTE | 2023-10-30 10:35 | W.DS.TRANS ---
DC Summary - Take Down Inspector
-
Discharge Instructions:
Discharge Diagnosis/Procedures adenovirus pneumonia with COPD flare and acute
hypoxic respiratory failure
Diet Regular
Activity As tolerated
Driving Restrictions Not until seen by your Dr
Instructions:
Stand-Alone Forms:
Changes to Home Medications: Yes
Discharge Medications:
DC Medications w/original date entered in [facility]
albuterol sulfate 90 mcg/actuation aerosol inhaler 2 puff inhalation R Q4HPRN PRN sob/wheezing 06/02/23
alendronate 70 mg tablet 70 mg PO MO osteoporosis 06/02/23
cyclosporine 0.05 % eye drops in a dropperette (Restasis) 1 drp BOTH EYES BID Eye Condition 06/02/23
diphenhydramine 25 mg-acetaminophen 500 mg tablet (Tylenol PM Extra Strength) 2 tab PO HS PRN sleep 06/02/23
esomeprazole magnesium 20 mg capsule,delayed release (Nexium) 20 mg PO DAILY PRN heartburn 06/02/23
rosuvastatin 5 mg tablet 5 mg PO QPM High Cholesterol 06/02/23
acetaminophen 500 mg tablet (Tylenol Extra Strength) 1,000 mg PO Q6H PRN mild pain 10/11/23
cholecalciferol (vitamin D3) 125 mcg (5,000 unit) tablet 125 mcg PO DAILY Supplement 10/11/23
melatonin 10 mg tablet 10 mg PO HS PRN sleep 10/11/23
tiotropium 2.5 mcg-olodaterol 2.5 mcg/actuation mist for inhalation (Stiolto Respimat) 2 puff inhalation .SEE BELOW Lung/Breathing Issues 10/11/23
albuterol sulfate 2.5 mg/3 mL (0.083 %) solution for nebulization 2.5 mg (3 mL) inhalation R Q4HPRN PRN SOB, COUGH, WHEEZE #75 mL 10/30/23
budesonide 0.5 mg/2 mL suspension for nebulization 0.5 mg (2 mL) inhalation R BID #60 mL 10/30/23
docusate sodium 100 mg capsule 100 mg PO BID #30 caps 10/30/23
guaifenesin 600 mg tablet, extended release 12 hr 600 mg PO Q12 #30 tabs 10/30/23
polyethylene glycol 3350 17 gram oral powder packet (HealthyLax) 17 g PO DAILY #30 ea 10/30/23
prednisone 10 mg tablet 10 mg PO DIRECTED #9 tabs 10/30/23
sodium chloride 0.65 % nasal spray aerosol (Saline Nasal) 2 spray intranasal QIDPRN PRN nasal congestion or dryness #44 mL 10/30/23
Home Medication Changes
education-prednisone taper, MiraLAX, Mucinex, Colace, budesonide , albuterol neb as needed
Pending Results: No
[2023-10-30 10:36] VITALS: O2SAT 85; O2SAT 91
--- NOTE | 2023-10-30 11:47 | W.PN.ID1 ---
Date of Service
Date of Service: October 30, 2023
Today's Communication
- stable for dc from ID perspective
Assessment / Plan
Pneumonia due to Adenovirus
COPD Moderate
- O2 requirements continue to improve
- would continue steroid wean as feasible
- continue supportive care
- droplet and contact precautions - isolation for duration of illness, there can be prolonged viral shedding
- stable for dc from ID perspective
Chief Complaint
-: Pneumonia and Other (adenovirus)
Subjective / Review of Systems
afebrile
bp stable
weaned to room air
Vital Signs / Physical Exam
Vital Signs
Vital Signs
Temp Pulse Resp BP Pulse Ox
98.4 F 95 18 122/76 93
10/30/23 07:50 10/30/23 07:50 10/30/23 07:50 10/30/23 07:50 10/30/23 10:36
Physical Exam
Constitutional: No Acute Distress
Cardiovascular: Regular Rate
Pulmonary: Symmetric and Non Labored
Gastrointestinal: Non Distended
Skin: Dry; Negative Rash or Jaundice
Neurological: Awake
Objective Data
Lab Data
Lab Results
10/27/23 04:55
10/27/23 04:55
Estimated Creat Clear 70 ml/min 10/27/23 04:55
Total Bilirubin 0.5 mg/dl (0.2-1.3) 10/22/23 03:54
AST 20 U/L (14-36) 10/22/23 03:54
ALT 17 U/L (0-35) 10/22/23 03:54
Alkaline Phosphatase 67 U/L (38-126) 10/22/23 03:54
Most recent labs reviewed.
Micro Results:
10/18/23 16:45 Influenza Type A (PCR) - Final
Nasalpharynx Not Detected
Influenza Type A (H1) (PCR) - Final
Not Detected
Influenza Type A (H3) (PCR) - Final
Not Detected
Influenza Type B (PCR) - Final
Not Detected
Resp Syncytial Virus Type A (PCR) - Final
Not Detected
Resp Syncytial Virus Type B (PCR) - Final
Not Detected
Adenovirus DNA (PCR) - Final
DETECTED
Human Metapneumovirus (PCR) - Final
Not Detected
Parainfluenza Virus Type 1 (PCR) - Final
Not Detected
Parainfluenza Virus Type 2 (PCR) - Final
Not Detected
Parainfluenza Virus Type 3 (PCR) - Final
Not Detected
Parainfluenza Virus Type 4 - Final
Not Detected
Rhinovirus (PCR) - Final
Not Detected
10/11/23 06:30 Influenza Types A & B (ROSY) - Final
Nasal Swab Negative for Influenza A & B, NAAT
Negative results must be combined with clinical observations
and patient history.
Nucleic Acid Amplification test (NAAT)performed on the
[employer] platform.
10/21/23 CXR : Airspace opacity at the periphery of the mid to lower right lung compatible with pneumonia. Bibasilar atelectasis. No large pleural effusion or pneumothorax. The cardiomediastinal silhouette is stable. Left reverse total shoulder
arthroplasty hardware.
[2023-10-30 15:18] VITALS: BP 139/73
[2023-10-30] MEDS: LOVENOX 40 MG SC (15:52)
[2023-10-30] MEDS: CRESTOR 5 MG PO (15:52)
--- NOTE | 2023-10-30 16:24 | W.DCSUMMARY ---
Discharge Summary
Discharge Data
Date of Admission: 10/11/23
Date of Discharge: 10/30/23
-
Pending Results: No
Hospital Course
Primary diagnosis:
Acute exacerbation of chronic obstructive pulmonary disease likely due to viral pneumonia
Pneumonia sec to adenovirus
Acute hypoxic respiratory failure
Secondary diagnosis:
Hyperlipidemia
Hospital course:
Patient with underlying history of COPD presented with acute pneumonia symptoms are bilateral pneumonia. Cultures came back positive for adenovirus. She had prolonged hypoxic respiratory failure requiring as high as 100% FiO2 via high flow nasal
cannula. She was treated with steroids which was tapered off to oral prednisone at the time of discharge. She did improve slowly and was weaned down to 2 L. She had home O2 eval and oxygen was arranged at the time of discharge. She will
follow-up with primary dental aide on discharge.
Consultants on board:
Pulmonary-Dr. Sanchez
Infectious disease-Dr. Saez
Discharge Plan
-
Patient Disposition: Home with Home Care
Discharge Diagnosis/Procedures: adenovirus pneumonia with COPD flare and acute hypoxic respiratory failure
Condition: Fair
Diet: Regular
Activity: As tolerated
Driving Restrictions: Not until seen by your Dr
Referrals:
Damian Sanchez MD [Active] - (Laura in 6 weeks)
Lennie Brown DO [Family Provider] - in less than 1 week
Prescriptions:
New
docusate sodium 100 mg Capsule
100 mg PO BID Qty: 30 0RF
Rx Instructions:
Can stop once bowel movements are regular
prednisone 10 mg tablet
10 mg PO DIRECTED Qty: 9 0RF
Rx Instructions:
take 20mg daily* 3 days and cut it to 10mg daily for another 3 days
polyethylene glycol 3350 [HealthyLax] 17 gram Powder In Packet
17 g PO DAILY Qty: 30 0RF
Rx Instructions:
can stop once bowel movements are regular
guaifenesin 600 mg Tablet Extended Release 12hr
600 mg PO Q12 Qty: 30 0RF
Saline Nasal 0.65 % Aerosol,[place]
2 spray intranasal QIDPRN PRN (Reason: nasal congestion or dryness) Qty: 44 0RF
budesonide 0.5 mg/2 mL Suspension For Nebulization
0.5 mg inhalation R BID Qty: 60 0RF
albuterol sulfate 2.5 mg /3 mL (0.083 %) Solution For Nebulization
2.5 mg inhalation R Q4HPRN PRN (Reason: SOB, COUGH, WHEEZE) Qty: 75 0RF
Continued
alendronate 70 mg tablet
70 mg PO MO
Tylenol PM Extra Strength 25-500 mg Tablet
2 tab PO HS PRN (Reason: sleep)
Patient Comments:
10/11/2023, alternates with Melatonin.
esomeprazole magnesium [Nexium] 20 mg Capsule,Delayed Release(Dr/Ec)
20 mg PO DAILY PRN (Reason: heartburn)
cyclosporine [Restasis] 0.05 % dropperette
1 drp BOTH EYES BID
rosuvastatin 5 mg tablet
5 mg PO QPM
albuterol sulfate 90 mcg/actuation HFA aerosol inhaler
2 puff INHALATION R Q4HPRN PRN (Reason: sob/wheezing)
Stiolto Respimat 2.5-2.5 mcg/actuation Mist
2 puff INHALATION .SEE BELOW
Patient Comments:
10/11/2023, pt. states that she stopped using this med. on Monday (10/09/2023) because she didn't think it was helping her. Prescribed for pt. to take daily.
acetaminophen [Tylenol Extra Strength] 500 mg Tablet
1,000 mg PO Q6H PRN (Reason: mild pain)
cholecalciferol (vitamin D3) 125 mcg (5,000 unit) Tablet
125 mcg PO DAILY
melatonin 10 mg Tablet
10 mg PO HS PRN (Reason: sleep)
Patient Comments:
10/11/2023, alternates with Tylenol PM.
Discharge Orders:
Discharge Patient (As Directed); Ordered 10/30/23
Ordered By: Floyd Alonzo
Discharge Date and Time
Print Language: GABONESE
== END 2023-10-30 16:53 | disposition home health service (06) | DRG 190 ==
LOC: 2 NORTH 10:49
PROVIDERS: Internal Medicine; Internal Medicine Critical Care Medicine; Internal Medicine Pulmonary Disease; Nurse Practitioner Family; Nurse Practitioner Primary Care; Student in an Organized Health Care Education/Training Program; ADMITTING PHYSICIAN Internal Medicine; CONSULT PHYSICIAN Internal Medicine Critical Care Medicine; CONSULT PHYSICIAN Student in an Organized Health Care Education/Training Program; EMERGENCY PHYSICIAN Emergency Medicine; FAMILY PHYSICIAN Family Medicine
PROC: 5A0955A Assistance with Respiratory Ventilation, Greater than 96 Consecutive Hours, High Flow/Velocity Cannula (ICD-10-PCS; 2023-10-22)
DX: J43.2 Centrilobular emphysema (principal); A41.89 Other specified sepsis; J12.0 Adenoviral pneumonia; J96.01 Acute respiratory failure with hypoxia; R65.20 Severe sepsis without septic shock; J98.11 Atelectasis; J84.9 Interstitial pulmonary disease, unspecified; J90 Pleural effusion, not elsewhere classified; E78.00 Pure hypercholesterolemia, unspecified; R91.8 Other nonspecific abnormal finding of lung field; I27.20 Pulmonary hypertension, unspecified; I07.1 Rheumatic tricuspid insufficiency; G47.00 Insomnia, unspecified; M94.0 Chondrocostal junction syndrome [Tietze]; R33.9 Retention of urine, unspecified; Z96.612 Presence of left artificial shoulder joint; Z96.652 Presence of left artificial knee joint; Z87.891 Personal history of nicotine dependence; Z88.5 Allergy status to narcotic agent; Z86.16 Personal history of COVID-19; Z86.15 Personal history of latent tuberculosis infection; Z11.52 Encounter for screening for COVID-19
CPT/HCPCS: 36600; 71045; 71046; 71275; 74230; 80048; 80053; 82784; 82787; 82805; 83735; 83880; 84145; 84484; 85025; 85027; 85379; 87502; 87633; 87811; 92611; 93005; 93306; 93970; 94640; 94667; 94668; 94669; 94761; 97163; 97167; 97530; 99285; Q9967

== ENCOUNTER → 2023-11-27 09:03 | Outpatient (REF) | payer MEDICARE, OTHER, SELFPAY | LOC: RAD 09:03 | PROVIDERS: ATTENDING PHYSICIAN Nurse Practitioner Family | DX: Z87.01 Personal history of pneumonia (recurrent) (principal) | CPT/HCPCS: 71046 ==

== ENCOUNTER → 2024-01-22 07:00 | Outpatient (REF) | payer MEDICARE, OTHER, SELFPAY | LOC: RAD 07:00 | PROVIDERS: ATTENDING PHYSICIAN Internal Medicine Critical Care Medicine; FAMILY PHYSICIAN Family Medicine | DX: R91.8 Other nonspecific abnormal finding of lung field (principal) | CPT/HCPCS: 71250 ==

== ENCOUNTER → 2024-12-30 07:47 | Outpatient (REF) | payer MEDICARE, OTHER, SELFPAY | LOC: RAD 07:47 | PROVIDERS: ATTENDING PHYSICIAN Internal Medicine Critical Care Medicine; FAMILY PHYSICIAN Student in an Organized Health Care Education/Training Program | DX: R91.8 Other nonspecific abnormal finding of lung field (principal) | CPT/HCPCS: 71250 ==

== ENCOUNTER 2025-04-12 10:08 | Emergency (ER) | payer MEDICARE, OTHER, SELFPAY ==
[2025-04-12 10:11] VITALS: BP 127/89
[2025-04-12 11:04] VITALS: BP 126/82
[2025-04-12] MEDS: DUONEB 3 ML INH ×2 (11:38→13:52)
[2025-04-12] MEDS: DELTASONE 50 MG PO (11:38)
--- NOTE | 2025-04-12 11:39 | ED.GENMED ---
History of Present Illness
General
Chief Complaint: Breathing Problem
Source: patient, family and previous hospital records
Exam Limitations: none
Time Seen by Provider: 04/12/25 10:55
History of Present Illness
History of Present Illness:
Pt is a 74 yo female with PMH of COPD, emphysema, osteoporosis who presents to the emergency department from home accompanied by her daughter for evaluation of cough and shortness of breath over the past 4 days. Pt reports that five days ago, she
received the RSV vaccine. The following day, the patient reports she was extremely fatigued. The following day, the patient developed a non-productive cough and shortness of breath. Pt denies fevers, chills, chest pain. Pt denies abdominal pain,
nausea, vomiting. Pt denies lower extremity edema. Pt notes that she was in the ICU and had a prolonged hospitalization last year here at [facility] for acute hypoxemic respiratory failure secondary to COPD exacerbation/pneumonia. Pt has
never been intubated. Pt does not use supplemental oxygen at home. Pt reports compliance with her maintenance inhalers. She reports she has albuterol for prn use, she has been using it without improvement in her symptoms.
Past History
Past History
ED Past Medical History: COPD and Hypercholesterolemia
Social History
Tobacco: Former smoker
Alcohol: None
Drug: None
Personal:
Living: with family
Review of Systems
Review of Systems
Allergies reviewed?: Yes
All Other Systems: ROS reviewed and negative except as documented in HPI and ROS
Constitutional: Reports no symptoms; Denies fever or chills
EENT: Reports no symptoms; Denies sore throat or runny nose
Respiratory: Reports cough and trouble breathing; Denies hemoptysis
Cardiac: Reports no symptoms
ABD/GI: Reports no symptoms
: Reports no symptoms
Musculoskeletal: Reports no symptoms
Skin: Reports no symptoms
Neurological: Reports no symptoms
Endocrine: Reports no symptoms
Hematologic/Lymphatic: Reports no symptoms
Psychiatric: Reports no symptoms
Phy Exam
General Physical Exam
General Presentation: well appearing and no apparent distress
General Skin: warm and dry
General Habitus: normal
General Mental: alert
General Hydration: appears well hydrated
ENT Exam
ENT Exam: EOMI, pharynx normal, neck supple and normocephalic
Eye Exam
Eye Exam: PERRL, cornea clear and conjunctiva normal
Cardiovascular Exam
Cardiovascular Exam: regular rate/rhythm, no edema, no murmur and normal peripheral pulses
Pulmonary Exam
Pulmonary Exam: no respiratory distress, no rales, no crackles, no rhonchi, no stridor and no cough
Breath Sounds: Wheeze: generalized
Gastrointestinal Exam
Gastrointestinal Exam: normal bowel sounds, non tender, soft, no organomegaly, no pulsatile mass and non distended
Neurological Exam
Neurological Exam: alert, oriented x3, no motor deficits and speech normal
Musculoskeletal Exam
Musculoskeletal Exam: full ROM and no edema
Skin Exam
Skin Exam: normal color, warm/dry, no rash and no petechia
Psychiatric Exam
Psychiatric Exam: normal mood/affect
Scores
Heart Failure Risk
Heart Failure Risk Score: Not Applicable
Course
Orders/Labs/Results
Orders:
Orders
04/12/25 10:31
CR Chest - 2 Views Urgent
Comment:
Reason For Exam: cough, SOB, hot and cold
04/12/25 11:24
COVID-19 Antigen Urgent
Source: Nasal Swab
Complete Blood Count/With Diff Urgent
Comprehensive Metabolic Panel Urgent
Influenza A+B Rapid Molecular Urgent
ARTEM Source: Nasal Swab
Specimen Description:
04/12/25 11:34
Ipratropium/Albuterol Sulfate [Duoneb] 3 ml INH R NOW STA
Prednisone [Deltasone] 50 mg PO NOW STA
04/12/25 13:25
Ipratropium/Albuterol Sulfate [Duoneb] 3 ml INH R NOW STA
04/12/25 13:26
Doxycycline [Vibramycin] 100 mg PO NOW STA
Abnormal Lab Results
04/12/25
11:24
WBC 10.9 H 10^3/uL
(4.8-10.8)
MCH 31.4 H pg
(27.0-31.0)
Absolute Neuts (auto) 7.6 H 10^3/uL
(1.4-6.5)
Absolute Monos (auto) 0.8 H 10^3/uL
(0.1-0.6)
Lymphocytes % 18.8 L %
(20.5-51.1)
Glucose 105 H mg/dl
(70-99)
04/12/25 11:24
04/12/25 11:24
Vital Signs
Initial and Last Documented VS:
Initial Vital Signs
Temp Pulse Resp BP Pulse Ox
99 F 105 18 127/89 94
04/12/25 10:11 04/12/25 10:11 04/12/25 10:11 04/12/25 10:11 04/12/25 10:11
Last Documented Vital Signs
Temp Pulse Resp BP Pulse Ox
99 F 86 16 124/66 91
04/12/25 10:11 04/12/25 14:00 04/12/25 14:00 04/12/25 14:00 04/12/25 15:15
*Pulse Oximetry
SaO2: 92
Oxygen Mode of Delivery: Room air
Patient hypoxic: no
*Critical Care Note
Total Time (30-74mins, 75-104mins- exclusive of procedures): Not Applicable
Update Note
Update Note:
74-year-old female with past medical history of COPD, ICU admission for acute hypoxemic respiratory failure, but no history of intubation, who presents to the emergency department accompanied by her daughter for evaluation of cough and shortness of
breath. Patient believes that she got a virus which then caused her symptoms. On arrival, patient's vital signs are stable, she is afebrile. On examination, the patient is well-appearing, she is in no acute distress, she does have trace
expiratory wheeze throughout all lung caceres with slightly decreased breath sounds, she is not in respiratory distress. Labs were obtained and are notable for a very slight leukocytosis of 10.9, the remainder of the patient's labs are
nonactionable, COVID-19 is negative, flu swab is negative. Chest x-ray with findings of emphysema but no evidence of pneumonia. Patient given prednisone, DuoNeb, will reassess.
13:29 - Patient reassessed, patient with more wheezing now. Will give additional Duoneb and perform ambulatory pulse ox to help determine disposition.
Patient reassessed and states that she feels significantly improved. Lungs are more clear to auscultation bilaterally. Patient's ambulatory pulse ox did not drop below 92%. Patient desires discharge. She states that she has a nebulizer machine
at home but no more albuterol solution to put in it. She states that if we prescribe her albuterol solution, she will be able to use it along with her usual COPD medication. Her daughter states that she can stay with her and monitor her at home.
She reports they also have a pulse oximeter at home so that they can monitor those readings. At this time, will discharge the patient with prescriptions for a steroid burst, albuterol solution, as well as a course of azithromycin for an acute
exacerbation of her COPD. Patient strongly encouraged to follow-up with her PCP within 48 hours for reevaluation. Additionally, the patient and her daughter were given strict return precautions, they expressed understanding of the plan and agreed.
ED Attending Note
-
Portions of this chart may have been created with voice recognition software.� Occasional wrong word or��sound alike� substitutions may have occurred due to the inherent limitations of voice recognition software.
Discharge Plan
Departure
Patient Disposition: Home (Routine Discharge)
Date of Disposition: 04/12/25
Time of Disposition: 15:18
Patient with high blood pressure during this ER visit?: No
Condition: Good
Covid-19: Negative COVID-19
Discharge Problem:
Acute exacerbation of chronic obstructive pulmonary disease
Instructions: Exacerbation of COPD (DC)
Prescriptions:
New
prednisone 10 mg tablet
40 mg PO DAILY 4 Days Qty: 16 0RF
albuterol sulfate 2.5 mg /3 mL (0.083 %) solution for nebulization
2.5 mg inhalation Q4H PRN (Reason: shortness of breath or wheezing) 30 Days Qty: 90 0RF
azithromycin 250 mg tablet
250 mg PO DAILY 4 Days Qty: 4 0RF
No Action
alendronate 70 mg tablet
70 mg PO MO
Tylenol PM Extra Strength 25-500 mg Tablet
2 tab PO HS PRN (Reason: sleep)
Patient Comments:
10/11/2023, alternates with Melatonin.
esomeprazole magnesium [Nexium] 20 mg Capsule,Delayed Release(Dr/Ec)
20 mg PO DAILY PRN (Reason: heartburn)
cyclosporine [Restasis] 0.05 % dropperette
1 drp BOTH EYES BID
rosuvastatin 5 mg tablet
5 mg PO QPM
albuterol sulfate 90 mcg/actuation HFA aerosol inhaler
2 puff INHALATION R Q4HPRN PRN (Reason: sob/wheezing)
Stiolto Respimat 2.5-2.5 mcg/actuation Mist
2 puff INHALATION .SEE BELOW
Patient Comments:
10/11/2023, pt. states that she stopped using this med. on Monday (10/09/2023) because she didn't think it was helping her. Prescribed for pt. to take daily.
acetaminophen [Tylenol Extra Strength] 500 mg Tablet
1,000 mg PO Q6H PRN (Reason: mild pain)
cholecalciferol (vitamin D3) 125 mcg (5,000 unit) Tablet
125 mcg PO DAILY
melatonin 10 mg Tablet
10 mg PO HS PRN (Reason: sleep)
Patient Comments:
10/11/2023, alternates with Tylenol PM.
docusate sodium 100 mg Capsule
100 mg PO BID Qty: 30 0RF
Rx Instructions:
Can stop once bowel movements are regular
prednisone 10 mg tablet
10 mg PO DIRECTED Qty: 9 0RF
Rx Instructions:
take 20mg daily* 3 days and cut it to 10mg daily for another 3 days
polyethylene glycol 3350 [HealthyLax] 17 gram Powder In Packet
17 g PO DAILY Qty: 30 0RF
Rx Instructions:
can stop once bowel movements are regular
guaifenesin 600 mg Tablet Extended Release 12hr
600 mg PO Q12 Qty: 30 0RF
Saline Nasal 0.65 % Aerosol,[place]
2 spray intranasal QIDPRN PRN (Reason: nasal congestion or dryness) Qty: 44 0RF
albuterol sulfate 2.5 mg /3 mL (0.083 %) solution for nebulization
2.5 mg inhalation Q4H PRN (Reason: shortness of breath or wheezing) Qty: 90 0RF
budesonide 0.5 mg/2 mL suspension for nebulization
0.5 mg inhalation BID Qty: 60 0RF
Referrals:
Luz Haney MD [Family Provider, Family Practice] - Follow up in 2-3 days
Referral Note: Call for follow up appointment
Activity Restrictions/Additional Instructions:
You were seen in the emergency department for evaluation of cough and shortness of breath. While you were in the emergency department you had blood work and a chest x-ray. We suspect that you are having an exacerbation of your COPD. You felt
better after receiving steroids and breathing treatments. Please continue taking the steroids that were prescribed exactly as directed. Please continue using the albuterol solution in your nebulizer machine every 4-6 hours if needed for wheezing
or shortness of breath. Please complete the antibiotics that were prescribed to you. Please follow up closely with your primary care provider to ensure improvement in your symptoms. Please return to the emergency department if you develop
worsening shortness of breath or difficulty breathing, if your pulse ox less than 90%, or for any other worsening or concerning symptoms.
Interventions
Interventions:
*Risk Screen - Suicide Last Done: 04/12/25 10:11
*General Assessment Last Done: 04/12/25 11:26
*Neglect/Abuse Screening Last Done: 04/12/25 11:26
*ED- Fall Risk Assessment Last Done: 04/12/25 11:26
*Nursing Disposition Last Done: 04/12/25 15:27
ED- Cardiac Assessment Last Done: 04/12/25 11:26
ED- Pulmonary Assessment Last Done: 04/12/25 11:26
Discharge Date and Time
Discharge Date/Time: 04/12/25 15:28
Print Language: GREENLANDIC
[2025-04-12 11:43] LABS: Hematocrit 38.8 % (37.0-47.0); Hemoglobin 13.2 g/dL (12.0-16.0); Mean Corp Hgb Conc. 34.0 g/dL (33.0-37.0); Mean Corpuscular Volume 92.4 fL (81.0-99.0); Nucleated Red Blood Cells % 0 %; Platelet Count 248 10^3/uL (130-400); Red Cell Dist. Width 12.9 % (11.5-14.5)
[2025-04-12 12:00] VITALS: BP 132/103
[2025-04-12 12:02] LABS: ALT (SGPT) 23 U/L (0-35); AST (SGOT) 33 U/L (14-36); Albumin 4.3 g/dl (3.5-5.0); Alkaline Phosphatase 75 U/L (38-126); Blood Urea Nitrogen 17 mg/dl (7-17); Calcium 9.5 mg/dl (8.4-10.2); Carbon Dioxide 23 mmol/L (22-30); Chloride 106 mmol/L (98-107); Glucose 105 mg/dl (70-99); Potassium 4.3 mmol/L (3.5-5.1); Sodium 135 mmol/L (135-145); Total Protein 7.8 g/dl (6.3-8.2); eGFR 59.12
[2025-04-12 12:25] LABS: COVID-19 Antigen Negative (Negative)
[2025-04-12] MEDS: VIBRAMYCIN 100 MG PO (13:52)
[2025-04-12 14:00] VITALS: BP 124/66
== END 2025-04-12 15:28 | disposition home or self-care (01) ==
LOC: EMR 10:08
PROVIDERS: EMERGENCY PHYSICIAN Student in an Organized Health Care Education/Training Program; FAMILY PHYSICIAN Student in an Organized Health Care Education/Training Program
DX: J44.1 Chronic obstructive pulmonary disease with (acute) exacerbation (principal); J43.9 Emphysema, unspecified; E78.00 Pure hypercholesterolemia, unspecified; M81.0 Age-related osteoporosis without current pathological fracture; Z87.01 Personal history of pneumonia (recurrent); Z87.891 Personal history of nicotine dependence
CPT/HCPCS: 99284; 71046; 80053; 85025; 87502; 87811